=== PATIENT | male | born 1950 | race Caucasian/White ===

== ENCOUNTER 2017-01-26 09:56 | Emergency (ER) | payer MEDICARE, OTHER ==
[2017-01-26] MEDS ORDERED: HYDROcodone/Acetaminophen 10/325 mg Tablet ONE (11:38)
--- NOTE | 2017-01-26 13:06 | CT ---
CT OF CERVICAL SPINE PERFORMED WITHOUT CONTRAST ENHANCEMENT: HISTORY: Neck pain status post fall. History of neck surgery. FINDINGS: The patient has undergone anterior cervical fusion. There is a plate and screws at the C3-4 level w ith marked disk narrowing at this level. There is a separate plate and screws at the C5-6 level. T here is mild disk narrowing at C4-5. There are degenerative facet changes, the facets do appear to be in normal alignment. There is minimal anterolysis of C7 on T1. There is a moderately severe can al stenosis at C3-4. There is bilateral foraminal narrowing which is worse on the left with asymmet vernon left uncovertebral hypertrophic changes. There is also mild left foraminal narrowing at the C4- 5 level and C5-6. The canal is mildly stenotic at the C5-6 and C6-7 levels. There is no CT evidenc e of fracture. IMPRESSION: No CT evidence of fracture. Arthritic changes and postoperative changes of the spine are noted. POS: [facility]
== END 2017-01-26 12:10 | disposition home or self-care (01) ==
LOC: ERS 09:56
DX: S16.1XXA Strain of muscle, fascia and tendon at neck level, initial encounter (principal); M48.02 Spinal stenosis, cervical region; J44.9 Chronic obstructive pulmonary disease, unspecified; E78.5 Hyperlipidemia, unspecified; F41.9 Anxiety disorder, unspecified; F32.9 Major depressive disorder, single episode, unspecified; Z87.891 Personal history of nicotine dependence; V00.121A Fall from non-in-line roller-skates, initial encounter
CPT/HCPCS: 72125

== ENCOUNTER 2017-02-21 06:37 | Day surgery (SDC) | payer MEDICARE, OTHER ==
[2017-02-20 12:13] VITALS: BMI 26.9
[2017-02-21 07:35] VITALS: BP 139/72; TEMP 97.3
[2017-02-21] MEDS ORDERED: Lorazepam 1 MG TAB ONE (07:42)
[2017-02-21] MEDS ORDERED: FLU VACC TS2017-18 (>65YR) 0.5 ML SYRINGE IM ONE (09:00)
--- NOTE | 2017-02-21 13:40 | CT ---
CT LUMBAR SPINE WITH CONTRAST (CT LUMBAR MYELOGRAM): DATE: 02-21-17 HISTORY: 66-year-old male with chronic low back pain and lumbar radiculopathy. FINDINGS: The current images of the previously demonstrated approximately 3.7 cm left renal upper pole cyst is degraded on the current study due to breathing motion. The more posterolaterally located left renal upper pole cystic lesion is mostly excluded from the field of view on the current CT. There are fiv e lumbar type vertebrae. The vertebral body heights are maintained. T12-L1: Minimal disc bulge. Otherwise essentially normal. L1-2: Normal. The conus medullaris terminates at this level. L2-3: Disc space maintained. Mild diffuse disc bulge. Minimal degenerative retrolisthesis of L2 on L 3. Moderate decrease in the anteroposterior dimension of the thecal sac, while the transverse dimens ion is preserved. No high grade degenerative facet changes. Mild to moderate bilateral neural forami nal stenosis. Disc space maintained. L3-4: Minimal disc space narrowing. Prominent diffuse disc bulge. New finding of a thin right parace ntral focal disc extrusion with superior migration of the extruded disc material to the foraminal le josue of L3. This only minimally worsens the pre-existing moderate degree of central spinal canal sten osis caused by the combination of the diffuse disc bulge and the bilateral degenerative facet hypert rophy. Moderate to severe bilateral neural foraminal stenosis. L4-5: Mild disc space narrowing. Severe bilateral degenerative facet disease, right worse than left, causes a very mild grade I anterolisthesis of L4 on L5. The bilateral facet hypertrophy is severe, resulting in significant decrease in the transverse dimension of the thecal sac. The anteroposterior dimension of the thecal sac is not narrowed because of an old midline laminectomy defect. Overall d egree of central spinal canal stenosis is moderate to severe. During the interval since 04-20-15 ere has been interval bony overgrowth of an approximately 1.5 cm anteroposterior x 0.4 cm transverse x 1.5 cm craniocaudal osteophytic process projecting posteriorly and medially from the right inferi or articular facet of L4, which extends to the midline. There is moderate to severe bilateral neural foraminal stenosis, similar to the previous study. There is no spondylolysis. L5-S1: Disc space is preserved. Mild diffuse disc bulge. Moderate to severe bilateral neural foramin al stenosis. Bilateral severe degenerative facet disease. The facet hypertrophy results in decrease in the transverse dimension of the spinal canal and thecal sac. There is a conjoined nerve root resu lting in asymmetry of the thecal sac. Overall a moderate degree of central spinal canal stenosis. No significant interval change overall. IMPRESSION: 1. Lumbar spondylosis, including severe facet osteoarthrosis at L4-5 and L5-S1, and moderate facet o steoarthrosis at L3-4. 2. Incidental finding of interval posterior growth of an unusually long osteophyte from the right L4 inferior articular facet into the posterior perivertebral space. 3. Moderate to severe central spinal canal stenosis at L4-5, and moderate central spinal canal steno sis at L3-4 and L5-S1, remain. 4. High grade bilateral neural foraminal stenosis at L3-4, L4-5, and L5-S1 remain. 5. Prior midline laminectomy at L3-4 is again noted. 6. In addition to diffuse disc bulge at L3-4, there is a new finding of a small, thin right paracent ral disc extrusion with superior migration. POS: [facility]
[2017-02-21] MEDS ORDERED: Iopamidol-M 300 61% 15 ML VIAL ONE (15:30)
--- NOTE | 2017-02-21 15:42 | RAD ---
MYELOGRAM CERVICAL MYELOGRAM LUMBAR: Date: 02-21-17 History: 66-year-old male with lumbar radiculopathy, low back pain, cervical radiculopathy, and cervicalgia. Technique: Signed informed consent obtained. [employer] radiographs of the cervical spine and lumbar spine obtained. Patient was placed in prone DIVEHI position on fluoroscopy table. Skin of lower back was prepped and d raped in usual sterile fashion. 25 gauge needle used to apply buffered Lidocaine superficially and d eeply. 22 gauge spinal needle advanced into the spinal canal and thecal sac at the L1-2 level (after confirming on previous CT lumbar myelogram of 04-20-15 that the conus medullaris tip was at that le josue). Upon brisk return of clear CSF, a total of 10 ml of Isovue M300 was injected intrathecally und er brief, intermittent fluoroscopy. Needle was removed. The table was tilted in prone Trendelenburg position, to allow the intrathecal contrast material to flow into the cervical spine. The patient wa s then taken to CT. Patient tolerated the procedure well. No complications. FINDINGS: Aneurysm clip in right posterior fossa. ACDF hardware at C3-4 and C5-6. Degenerative retrolisthesis of C3 on C4, which encroaches upon the spinal canal. Severe DJD of bilateral facet joints at L3-4 (causing grade I anterolisthesis of L3 on L4) and L5-S1 . Midline laminectomy defect at L3-4. No severe disc space narrowing at any lumbar level. Post injection images demonstrate contrast material in the spinal canal, demonstrating central spina l canal stenosis at L3-4, and especially L4-5. Single AP view of the cervical spine demonstrates con trast material within the cervical spinal canal. IMPRESSION: 1. Technically successful lumbar and cervical myelogram. 2. Cervical spondylosis with high grade facet osteoarthrosis, asymmetrically worse on the left than the right. 3. Status post anterior cervical discectomy and fusion at C3-4 and C5-6. 4. Lumbar spondylosis consisting of severe bilateral facet osteoarthrosis at L4-5 and L5-S1. 5. Grade I spondylolisthesis at L4-5 due to the facet osteoarthrosis. 6. Status post laminectomy at L4-5. 7. Central spinal canal stenosis at L3-4 and L4-5. 8. See separate report of the CT myelogram for additional details that are not demonstrated on the bobby mejia radiographic images. POS: [facility]
--- NOTE | 2017-02-21 15:55 | CT ---
CT CERVICAL SPINE WITH CONTRAST: (CT CERVICAL MYELOGRAM) 02/21/2017 HISTORY: A 66-year-old male with cervical radiculopathy, recently exacerbated by trauma (refrigerator fell on patient). COMPARISON: CT cervical myelogram from 04/20/2015. FINDINGS: There is an intracranial aneurysm clip in the right anterior lower aspect of the posterior fossa, ad jacent to the right side of the medulla. Again demonstrated is the medialization of the right vocal cord. The right common carotid artery and internal carotid artery are also medialized, taking a re tropharyngeal course, and anteriorly displacing the right posterior pharyngeal wall. The vertebral body heights are maintained. The cervical spinal canal is diffusely small in caliber, in particular in the anteroposterior dimension, due to developmentally short pedicles. This is exac erbated by cervical spondylosis, as described below. C1-C2: No high grade central spinal canal stenosis. Minimal-mild facet osteoarthrosis at the bilat eral atlantoaxial joints. Atlanto-occipital joints are essentially normal. Degenerative changes at the atlanto-odontoid junction. C2-C3: Disk space maintained. Mild central spinal canal stenosis, almost entirely on a development al basis. No right-sided neural foraminal stenosis. Mild left neural foraminal stenosis. Bilatera l small uncinate process osteophytes. Mild right facet DJD. Moderate left facet DJD, slightly wors e than in 2014. C3-C4: Anterior metallic plate and screws. Tiny metallic markers for interbody fusion cage. Moder ate to severe disk space narrowing. No signs of osseous bridging between the endplates (no ankylosi s). Prominent, broad-based disk-osteophytic bar complex encroaches upon the anterior aspect of the spinal canal, asymmetrically worse at the left lateral aspect of the spinal canal compared to the ri ght, exacerbating the developmentally small caliber spinal canal, resulting in moderate central spin al canal stenosis. No cord impingement. Large bilateral uncinate process osteophytes, left worse t lord right, result in severe bilateral neural foraminal stenosis, left worse than right. Mild DJD of the right facet joint. The left facet joint is almost normal. No significant interval change. C4-C5: Mild disk space narrowing. Vacuum disk phenomenon is new since the previous study. Shallow , broad-based disk-osteophyte complex, encroaching upon the anterior aspect of the spinal canal. Th ere is a chronic small calcified central disk protrusion, which almost contacts the ventral surface of the spinal cord. There is mild ligamentum flavum thickening, which abuts the dorsal surface of t he spinal cord. Overall, moderate to severe central spinal canal stenosis. There is also effacemen t of the left lateral aspect of the thecal sac by a small, approximately 0.4 x 0.4 cm soft tissue de nsity, which was present previously. This may represent a small disk extrusion fragment. Bilateral moderate sized uncinate process osteophytes. Moderate right facet degenerative hypertrophy. Moder ate to severe left degenerative facet hypertrophy. Moderate to severe right neural foraminal stenos is. Severe left neural foraminal stenosis. C5-C6: Anterior metallic plate and screws. Interbody bone graft has successfully fused with the a djacent endplates, as was the case previously. Moderate central spinal canal stenosis, almost entire ly on a developmental basis. Mild, bilateral facet DJD, left worse than right. Bilateral neural for aminal stenosis, moderate on the right and moderate to severe on the left. C6-C7: Severe disk space narrowing. Slight degenerative retrolisthesis of C6 on C7. Broad-based d isk osteophytic bar complex encroaches upon the anterior aspect of the spinal canal, exacerbating th e developmentally small caliber spinal canal, causing moderate to severe central spinal canal stenos is. Large bilateral uncinate process osteophytes. Moderate to severe bilateral facet DJD. Severe bilateral neural foraminal stenosis. No major interval change. C7-T1: Severe bilateral facet DJD causes a chronic grade 1 anterolisthesis of C7 on T1. These fact ors also result in severe bilateral neural foraminal stenosis and moderate to severe central spinal canal stenosis. No major interval change. IMPRESSION: 1. Cervical spondylosis with multilevel high grade degenerative disk disease and high grade facet o steoarthrosis. 2. Status post anterior cervical diskectomy and fusion at C3-C4 (without ankylosis) and C5-C6 (with successful ankylosis). 3. Developmentally small caliber spinal canal is exacerbated by the cervical spondylosis, with mult i-level high-grade central spinal canal stenosis and multi-level high-grade bilateral neural foramin al stenosis, including severe. 4. Filling defect at the left lateral aspect of the spinal canal at C4-C5 may represent extruded di sk herniation, chronic. 5. 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 6. Chronic right vocal cord paralysis. POS: KATHRYN
== END 2017-02-21 10:20 | disposition home or self-care (01) ==
LOC: RAD 06:37
PROVIDERS: ATTEND Neurological Surgery
PROC: B00B1ZZ Plain Radiography of Spinal Cord using Low Osmolar Contrast (ICD-10-PCS; principal; 2017-02-21)
DX: M47.26 Other spondylosis with radiculopathy, lumbar region (principal); M47.22 Other spondylosis with radiculopathy, cervical region; J44.9 Chronic obstructive pulmonary disease, unspecified; N40.0 Benign prostatic hyperplasia without lower urinary tract symptoms; I49.9 Cardiac arrhythmia, unspecified; F32.9 Major depressive disorder, single episode, unspecified; F41.9 Anxiety disorder, unspecified; M19.90 Unspecified osteoarthritis, unspecified site; Z79.82 Long term (current) use of aspirin; Z79.899 Other long term (current) drug therapy; Z90.49 Acquired absence of other specified parts of digestive tract; Z88.1 Allergy status to other antibiotic agents; Z88.8 Allergy status to other drugs, medicaments and biological substances; Z88.2 Allergy status to sulfonamides; Z98.1 Arthrodesis status; Z98.890 Other specified postprocedural states; Z87.891 Personal history of nicotine dependence
CPT/HCPCS: 62305; 72126; 72132

== ENCOUNTER → 2017-04-26 | Day surgery (SDC) | payer MEDICARE, OTHER ==
--- NOTE | 2017-04-26 13:50 | SPC ---
LEFT UPPER EXTREMITY PICC EXCHANGE FLUORO GUIDED: History: Malfunction of left upper extremity PICC. FINDINGS: After explaining the procedure and answering all questions, the external portion of the left upper ex tremity PICC were prepped in the usual sterile fashion. Guide wire was placed to hold position. A new 5 Pakistani single lumen PICC was placed so that the tip lies at the level of the superior vena cava. T he catheter was flushed and secured externally. Patient tolerated the procedure well and was dismisse d in good condition. Fluoro time: 0 seconds. IMPRESSION: Left upper extremity PICC is ready for use. POS: [facility]
== END ==
LOC: SPEC 10:31
PROVIDERS: ATTEND Family Medicine
PROC: 0J2VXYZ Change Other Device in Upper Extremity Subcutaneous Tissue and Fascia, External Approach (ICD-10-PCS; principal; 2017-04-26)
DX: T82.598A Other mechanical complication of other cardiac and vascular devices and implants, initial encounter (principal); J44.9 Chronic obstructive pulmonary disease, unspecified; E78.5 Hyperlipidemia, unspecified; N40.0 Benign prostatic hyperplasia without lower urinary tract symptoms; M19.90 Unspecified osteoarthritis, unspecified site; F41.9 Anxiety disorder, unspecified; F32.9 Major depressive disorder, single episode, unspecified; Z79.82 Long term (current) use of aspirin; Z79.899 Other long term (current) drug therapy; Z88.1 Allergy status to other antibiotic agents; Z88.2 Allergy status to sulfonamides; Z88.8 Allergy status to other drugs, medicaments and biological substances; Z98.1 Arthrodesis status; Z90.49 Acquired absence of other specified parts of digestive tract; Z98.890 Other specified postprocedural states; Z87.891 Personal history of nicotine dependence
CPT/HCPCS: 36569; C1751

== ENCOUNTER 2018-03-15 11:46 | Emergency (ER) | payer MEDICARE, OTHER ==
[2018-03-15] MEDS ORDERED: Acetaminophen 500 MG TAB ONE (12:08)
--- NOTE | 2018-03-15 12:54 | CT ---
CT HEAD NONCONTRAST: INDICATIONS: Posttraumatic head injury. Pain. FINDINGS: There is prominence of the ventricular system with multifocal white matter hypoattenuation of the per iventricular region, similar appearing to a 08/14/2017 exam. There is no acute mass producing intrac ranial hemorrhage visualized. There is a stable round hyperdensity within the sella, incompletely ev aluated, although stable dating back to 05/20/2015. IMPRESSION: 1. No acute intracranial hemorrhage or mass effect. 2. Moderate chronic ischemic disease and ventriculomegaly redemonstrated. 3. Round hyperdensity of the sella, incompletely evaluated. Followup with pre and post contrast MRI would prove useful for further characterization. POS: [place]
--- NOTE | 2018-03-15 13:12 | CT ---
CERVICAL SPINE CT NONCONTRAST: INDICATION: Injury, pain. FINDINGS: There is redemonstration of multilevel anterior fusion of the cervical spine involving C3-4 and C5-6 levels as was depicted on 01/26/2017 exam. Hardware alignment is grossly stable. Multilevel degenera tive change redemonstrated. No interval acute fracture is seen.. There is grade I spondylolisthesis of C7 on T1, stable-appearing. IMPRESSION: Stable postoperative cervical spine with multilevel degenerative change. POS: C
--- NOTE | 2018-03-15 13:13 | RAD ---
CHEST 1 VIEW: INDICATION: History of fall and altered mental status. FINDINGS: There is mild cardiomegaly, but no pulmonary vascular congestion. No pleural effusion is evident. N o pneumothorax is demonstrated. There is stable postsurgical change of the left shoulder when compar ed to the prior dated 07/23/2016. No acute osseous abnormality is evident. ACDF plate is seen involv ing the lower cervical spine. IMPRESSION: No definite acute abnormality. POS: [facility]
[2018-03-15 13:22] LABS: Bilirubin Negative (Negative); Blood, Urine Negative (Negative); Clarity CLEAR (Clear); Glucose, Urine (Dipstick) Negative (Negative); Leukocyte Moderate (Negative); Nitrite Positive (Negative); Protein, Urine (Dipstick) Negative (Neg-Trace); Specific Gravity, Urine 1.005 (1.002-1.036); Urobilinogen 0.2 mg/dL (0.2-1.0); pH, Urine 6.5 (5.0-9.0)
[2018-03-15 13:24] LABS: Bacteria/HPF 4+ HPF (None Seen); Hyaline Casts/LPF 0-3 HYALINE CAST LPF (0-3 Hyaline); RBC/HPF 0-3 HPF (0-3); Squamous Epithelial None Seen HPF (0-3)
[2018-03-15 13:43] LABS: #Eosinphils 0.2 thou/uL (0.0-0.7); #Lymphocytes 2.5 thou/uL (1.20-3.40); #Monocytes 0.7 thou/uL (0.11-0.59); %Basophils 0.8 % (0.0-1.0); %Eosinophils 3.4 % (0.0-10.0); %Lymphocytes 46.3 % (21.0-51.0); %Monocytes 12.5 % (0.0-10.0); %Neutrophils 36.9 % (42.0-75.0); Hemoglobin 11.9 g/dL (14.0-18.0); Mean Corpuscular HGB CONC 32.4 g/dL (32.0-36.0); Mean Corpuscular Volume 89.4 fL (78.0-98.0); Mean Platelet Volume 6.3 fL (7.4-10.4); Platelet Count 201 thou/uL (130-400); RBC Distribution Width 12.3 % (11.5-14.5); Red Blood Cell (RBC) Count 4.11 mill/uL (4.70-6.10); White Blood Cell (WBC) Count 5.3 thou/uL (4.8-10.8)
[2018-03-15 14:02] LABS: ALT (SGPT) 20 U/L (8-55); AST (SGOT) 19 U/L (5-34); Albumin 3.9 g/dL (3.4-4.8); Alkaline Phosphatase 71 U/L (40-150); Anion Gap 10 mmol/L (10-20); BUN (Urea Nitrogen) 9 mg/dL (8.4-25.7); Bilirubin, Total 1.4 mg/dL (0.2-1.2); Calc. Creatinine Clearance 0 mL/min (70-130); Calcium 9.2 mg/dL (7.8-10.44); Carbon Dioxide 27 mmol/L (23-31); Chloride 106 mmol/L (98-107); Estimated GFR-MDRD 65; Globulin 2.8 g/dL (2.4-3.5); Glucose 93 mg/dL (80-115); Potassium 4.3 mmol/L (3.5-5.1); Protein, Total 6.7 g/dL (5.8-8.1); Sodium 139 mmol/L (136-145)
[2018-03-15] MEDS ORDERED: HYDROcodone/Acetaminophen 5/325 mg Tablet ONE (15:18)
== END 2018-03-15 15:20 | disposition home or self-care (01) ==
LOC: ERS 11:46
DX: S06.0X0A Concussion without loss of consciousness, initial encounter (principal); J44.9 Chronic obstructive pulmonary disease, unspecified; E78.5 Hyperlipidemia, unspecified; F41.9 Anxiety disorder, unspecified; Z79.899 Other long term (current) drug therapy; Z87.891 Personal history of nicotine dependence; W06.XXXA Fall from bed, initial encounter
CPT/HCPCS: 36415; 51701; 70450; 71045; 72125; 80053; 81003; 81015; 83735; 84443; 85025; 93005

== ENCOUNTER 2018-09-07 17:28 | Emergency (ER) | payer MEDICARE, OTHER ==
[2018-09-07] MEDS ORDERED: Ondansetron PF 4 MG/2 ML Vial ONE (18:46)
== END 2018-09-07 20:13 | disposition home or self-care (01) ==
LOC: ERS 17:28
DX: T17.228A Food in pharynx causing other injury, initial encounter (principal); I10 Essential (primary) hypertension; J44.9 Chronic obstructive pulmonary disease, unspecified; E78.5 Hyperlipidemia, unspecified; F41.9 Anxiety disorder, unspecified; Z87.891 Personal history of nicotine dependence
CPT/HCPCS: 96374; 96375; J1610; J2405

== ENCOUNTER 2020-04-16 09:16 | Outpatient (CLI) | payer MEDICARE ==
[2020-04-16 21:38] LABS: SARS-CoV-2 MS2 Positive; SARS-CoV-2 N Gene Negative; SARS-CoV-2 S Gene Negative; SARS-CoV-2 by NAA Not Detected (NotDetected); SARS-CoV-2 orf1ab Negative
== END 2020-04-16 09:17 | disposition home or self-care (01) ==
LOC: LABBT 09:16
PROVIDERS: ATTEND Neurological Surgery
DX: Z20.828 Contact with and (suspected) exposure to other viral communicable diseases (principal)
CPT/HCPCS: 87635; U0003

== ENCOUNTER 2020-04-19 06:03 | Day surgery (SDC) | payer MEDICARE ==
[2020-04-16 13:02] VITALS: BMI 29.7
[2020-04-19] MEDS ORDERED: Midazolam HCl 2 mg/2 ml Vial ONE (07:50)
[2020-04-19] MEDS ORDERED: Fentanyl 100 MCG/2 ML VIAL ONE (07:50)
--- NOTE | 2020-04-19 08:22 | RAD ---
3 views of the cervical spine: 04/19/2020 HISTORY: Preoperative patient FINDINGS: The neutral lateral exam demonstrates anterior discectomy and fusion hardware at the C3-4 level and a t the C4-5 level. There is retrolisthesis on the neutral imaging measuring 5 mm at the C3-4 level. There is anterolisth esis at the C4-5 level measuring 2 mm on the neutral imaging. Flexion imaging demonstrates anterolisthesis at C2-3 measuring 3 mm, retrolisthesis at C3-4 measuring 3 mm, and anterolisthesis at C4-5 measuring 4 mm. Extension imaging demonstrates retrolisthesis at C2-3 measuring 4 mm, retrolisthesis at C3-4 measurin g 3 mm, and normal alignment at C4-5. C6-7 and C7-T1 levels are not well visualized on this exam. An aneurysm clip is noted at the level of the skull base. Evidence of prior occipital craniotomy noted. IMPRESSION: Postoperative and degenerative change as detailed above.
--- NOTE | 2020-04-19 08:34 | RAD ---
XR Lumbar Spine Bending Min 4V History: Preop evaluation Comparison: None. Findings: Grade 1 L4-5 anterolisthesis approximately 7 mm. Prior L4 and L5 laminectomy change. Severe facet arthrosis at L3/L4, L4/L5 and L5/S1. No significant translation with flexion or extension. 2 mm L3-4 retrolisthesis which is also fixed. High-grade aortic calcifications. No acute compression fracture. Impression: Moderate degenerative changes lower lumbar spine with fixed listhesis.
--- NOTE | 2020-04-19 09:17 | RAD ---
XR Myelogram 2 or More Regions History: Myelopathy Comparison: Myelogram 2009 Findings: Patient was brought to the fluoroscopy suite. The exam was performed under anesthesia. Patient's back was prepped and draped in normal sterile fashion. After adequate local anesthesia the L3/L4 interspace was accessed with a 22-gauge spinal needle. Clear CSF was visualized. 11 mL of contrast was instilled into the thecal sac. Patient was moving throughout the examination. Impression: Technically successful fluoroscopic guided cervical, thoracic, and lumbar myelogram.
--- NOTE | 2020-04-19 09:40 | CT ---
CT Lumbar Spine W Con History: Lumbar radiculopathy Comparison: None Findings: Cyst superior pole left kidney measuring up to 4 cm. Dense aortic calcifications. No retroperitoneal periaortic adenopathy. No acute cervical spine fracture or malalignment.. Levels are as follows: L1/L2: Small circumferential disc bulge. Mild facet arthrosis. No significant neural foraminal or spi nal canal narrowing. L2/L3: Mild hypertrophic facet arthrosis. Small circumferential disc osteophyte complex greatest with in the left lateral recess and subforaminal zone. Moderate to severe left neural foraminal narrowing. Spinal canal measures approximately 8 mm. Mild right neural foraminal narrowing. L3/L4: Moderate posterior disc space narrowing. 1 to 2 mm retrolisthesis. Large disc osteophyte compl ex. Moderate to severe bilateral neural foraminal narrowing. Mild ligamentum flavum hypertrophy. Spinal canal measures approximately 12 mm. Prior laminectomy change. L4/L5: 1-2 mm anterolisthesis. Severe facet arthropathy. Moderate disc osteophyte complex. Moderate b ilateral neural foraminal narrowing. No spinal canal narrowing. L5/S1: Mild posterior degenerative disc space height loss. Small circumferential disc bulge. Moderate facet arthropathy. Moderate bilateral neural foraminal narrowing. Impression: Multilevel high-grade neural foraminal narrowing as described.
--- NOTE | 2020-04-19 10:01 | CT ---
CT Cervical Spine W Con History: Radiculopathy Comparison: Neither the report for images are available for review from the prior exam Findings: Moderate vascular calcifications. Paraspinal soft tissues are normal. No acute fracture or malalignment. Vascular clip along the right brain stem. Levels are as follows: C2/C3: Minimal disc space height loss. Moderate uncinate process hypertrophy. Moderate left and mild right neural foraminal narrowing. Moderate left and mild right hypertrophic facet arthrosis. C3/C4: Prior discectomy change. Large posterior osteophytes cause a severe left and moderate to sever e right neural foraminal narrowing. There is ventral CSF space effacement with the spinal canal measuring 6 mm. Moderate left and mild right hypertrophic facet arthrosis. C4-5: High-grade posterior disc space height loss. Large peripherally calcified disc centrally. Spina l canal is narrowed to 5-6 mm. Moderate right uncinate process hypertrophy. High-grade left lateral recess and subforaminal zone disc osteophyte complex. Severe hypertrophic facet arthrosis on the left . Severe left neural foraminal narrowing. Moderate right neural foraminal narrowing. 2 mm anterolisthesis. C5/C6: Prior discectomy change. Moderate posterior osteophyte causes minimal ventral CSF space efface ment. No high-grade neural foraminal narrowing. Spinal canal measures approximately 1 cm. The osteophyte extends into the left lateral recess and subforaminal zone along with moderate hypertr ophic facet arthrosis causing moderate-severe left neural foraminal narrowing moderate right neural foraminal narrowing. C6/C7: Severe degenerative disc space height loss. 2 mm retrolisthesis. Large disc osteophyte complex causes severe left and moderate to severe right neural foraminal narrowing. Minimal ventral CSF space effacement with the spinal canal measuring approximately 8 mm. C7/T1: 2 mm anterolisthesis due to high-grade facet arthrosis. Spinal canal measures approximately 7 mm. Moderate bilateral neural foraminal narrowing. High-grade facet arthrosis. Impression: Moderate-severe spondylosis throughout the cervical spine with multilevel high-grade neur al foraminal narrowing.
[2020-04-19] MEDS ORDERED: PROPOFOL 200 MG/20 ML VIAL ONE (10:08)
--- NOTE | 2020-04-19 10:14 | CT ---
CT Thoracic Spine W Con History: Spondylosis Comparison: Images and report are not available from the prior exam due to system failure. Findings: Mild scarring lung bases. Moderate vascular calcifications of the aorta. Cysts of the left kidney. No acute fracture or malalignment. Throughout the thoracic spine is no high-grade neural foraminal or spinal canal narrowing. Levels are as follows: T1/T2: Small central disc osteophyte complex. No neural foraminal or spinal canal narrowing. T2/T3: Minimal disc space height loss. No neural foraminal or spinal canal narrowing. Minimal superio r endplate compression deformity at T3 is chronic. T3/T4: Left lateral recess disc osteophyte complex. Mild left neural foraminal narrowing. Minimal kwabena tral CSF space effacement with the spinal canal still measuring 12 mm. T4/T5: No disc bulge. No neural foraminal or spinal canal narrowing. T5/T6: No disc bulge. No neural foraminal or spinal canal narrowing. T6/T7: Small central disc herniation with mild ventral CSF space effacement. Spinal canal measures ap proximately 11 mm. No neural foraminal narrowing. T7/T8: No disc herniation. No neural foraminal or spinal canal narrowing. T8/T9: Small central disc herniation. Minimal ventral CSF space effacement with the spinal canal wali uring 9 mm. No neural foraminal narrowing. T9/T10: No disc herniation. No neural foraminal or spinal canal narrowing. T10/T11: No disc herniation. No neural foraminal or spinal canal narrowing. T11/T12: No disc herniation. Very small circumferential disc osteophyte complex. No neural foraminal or spinal canal narrowing. T12/L1 is not interrogated on this exam. Impression: Mild spondylosis with small disc herniations and disc bulges without high-grade neural fo raminal or spinal canal narrowing.
[2020-04-19] MEDS ORDERED: Iopamidol-M 300 61% 15 ML VIAL ONE (10:51)
== END 2020-04-19 10:41 | disposition home or self-care (01) ==
LOC: SDC/OP 06:03 → EDSTATUS 08:00 → SDC/OP 10:41
PROVIDERS: ATTEND Neurological Surgery
PROC: B02B1ZZ Computerized Tomography (CT Scan) of Spinal Cord using Low Osmolar Contrast (ICD-10-PCS; principal; 2020-04-19)
DX: M47.22 Other spondylosis with radiculopathy, cervical region (principal); M48.02 Spinal stenosis, cervical region; M47.24 Other spondylosis with radiculopathy, thoracic region; M51.14 Intervertebral disc disorders with radiculopathy, thoracic region; M48.061 Spinal stenosis, lumbar region without neurogenic claudication; G95.9 Disease of spinal cord, unspecified; J44.9 Chronic obstructive pulmonary disease, unspecified; G47.30 Sleep apnea, unspecified; Z86.14 Personal history of Methicillin resistant Staphylococcus aureus infection; Z79.82 Long term (current) use of aspirin; Z79.899 Other long term (current) drug therapy; Z88.1 Allergy status to other antibiotic agents; Z88.2 Allergy status to sulfonamides; Z88.8 Allergy status to other drugs, medicaments and biological substances
CPT/HCPCS: 62305; 72050; 72120; 72126; 72129; 72132; 82565; 87635; J2250; J2704; J3010; Q9967; U0003

== ENCOUNTER 2020-07-28 15:57 | Emergency (ER) | payer MEDICARE, OTHER ==
[2020-07-28] MEDS ORDERED: Milk Of Magnesia 30 ML UDCUP ONE (17:45)
[2020-07-28] MEDS ORDERED: MINERAL OIL 30 ML UDCUP PO SCH (17:45)
[2020-07-28] MEDS ORDERED: Milk Of Magnesia 30 ML UDCUP PO SCH (17:45)
== END 2020-07-28 20:07 | disposition home or self-care (01) ==
LOC: ERS 15:57
DX: K59.00 Constipation, unspecified (principal); E78.5 Hyperlipidemia, unspecified; E78.00 Pure hypercholesterolemia, unspecified; Z79.82 Long term (current) use of aspirin; Z79.899 Other long term (current) drug therapy
CPT/HCPCS: 99283

== ENCOUNTER 2022-05-25 22:29 | Observation (INO) | payer MEDICARE ==
[2022-05-25] MEDS ORDERED: Magnesium 2 GM/50 ML BAG (IN WATER) ONE (23:26)
[2022-05-25] MEDS ORDERED: methylPREDNISolone Sod Succ/PF 125 MG/2 ML VIAL ONE (23:26)
[2022-05-25] MEDS ORDERED: Ipratropium/Albuterol 3 ML NEB ONE (23:32)
[2022-05-25 23:34] LABS: Albumin 4.3 g/dL (3.4-4.8); Chloride 106 mmol/L (98-107); Potassium 4.2 mmol/L (3.5-5.1); Sodium 142 mmol/L (136-145)
[2022-05-25 23:35] LABS: Calcium 9.4 mg/dL (7.8-10.44); Glucose 131 mg/dL (83-110)
[2022-05-25 23:36] LABS: Actual Bicarbonate (HCO3a) 24.2 mEq/L (22-28); Analyzer IN Cardio ER; Base Excess (BEa) -3.5 mEq/L (-2.0 to +3.0); CO2 Tension 55.4 mmHg (35.0-45.0); Calcium, Ionized (arterial) 1.22 mmol/L (1.12-1.30); Carboxyhemoglobin (COHb) 0.1 gm% (0.0-3.0); Hemoglobin (Hb) 12.8 g/dL (14.0-18.0); O2 Tension (PaO2), arterial 68.9 mmHg (> 70.0); Potassium - ABG Lab 3.68 mmol/L (3.70-5.30); pH, Arterial 7.26 (7.35-7.45)
[2022-05-25 23:37] LABS: Anion Gap 16 mmol/L (10-20); Carbon Dioxide 24 mmol/L (23-31); Globulin 3.1 g/dL (2.4-3.5); Protein, Total 7.4 g/dL (5.8-8.1)
[2022-05-25 23:38] LABS: Alkaline Phosphatase 111 U/L (40-110)
[2022-05-25 23:39] LABS: BUN (Urea Nitrogen) 11 mg/dL (8.4-25.7); Calc. Creatinine Clearance 0 mL/min (70-130); Estimated GFR 62
[2022-05-25 23:40] LABS: AST (SGOT) 14 U/L (5-34)
[2022-05-25 23:41] LABS: ALT (SGPT) Less than 7 U/L (8-55)
[2022-05-25 23:47] LABS: Puncture Site LRA
[2022-05-26 00:02] LABS: #Basophils 0.1 thou/uL (0.0-0.2); #Eosinphils 0.2 thou/uL (0.0-0.7); #Lymphocytes 3.1 thou/uL (1.20-3.40); #Monocytes 0.7 thou/uL (0.11-0.59); %Basophils 0.7 % (0.0-1.0); %Lymphocytes 38.3 % (21.0-51.0); %Monocytes 8.4 % (0.0-10.0); %Neutrophils 49.7 % (42.0-75.0); Hemoglobin 11.8 g/dL (14.0-18.0); Mean Corpuscular HGB CONC 32.5 g/dL (32.0-36.0); Mean Corpuscular Hemoglobin 29.7 pg (27.0-31.0); Mean Corpuscular Volume 91.2 fl (78.0-98.0); Mean Platelet Volume 7.2 fL (7.4-10.4); Platelet Count 171 10x3/uL (130-400); RBC Distribution Width 12.3 % (11.5-14.5); Red Blood Cell (RBC) Count 3.99 mill/uL (4.70-6.10); White Blood Cell (WBC) Count 8.1 10x3/uL (4.8-10.8)
[2022-05-26] MEDS ORDERED: Ondansetron PF 4 MG/2 ML Vial ONE (00:11)
[2022-05-26] MEDS ORDERED: cefTRIAXone\\ROCEPHIN 2 GM VIAL ONE (00:11)
[2022-05-26] MEDS ORDERED: Azithromycin 500 MG VIAL ONE (02:01)
[2022-05-26 02:25] LABS: Bilirubin, Total 1.5 mg/dL (0.2-1.2)
[2022-05-26 04:41] VITALS: BMI 24.1
[2022-05-26 04:59] LABS: #Lymphocytes 0.5 thou/uL (1.20-3.40); #Monocytes 0.1 thou/uL (0.11-0.59); #Neutrophils 5.1 thou/uL (1.40-6.50); %Eosinophils 0.2 % (0.0-10.0); %Monocytes 2.3 % (0.0-10.0); %Neutrophils 89.5 % (42.0-75.0); Hemoglobin 12.1 g/dL (14.0-18.0); Mean Corpuscular HGB CONC 32.5 g/dL (32.0-36.0); Mean Corpuscular Hemoglobin 29.8 pg (27.0-31.0); Mean Corpuscular Volume 91.6 fl (78.0-98.0); Mean Platelet Volume 7.4 fL (7.4-10.4); Platelet Count 160 10x3/uL (130-400); RBC Distribution Width 12.3 % (11.5-14.5); Red Blood Cell (RBC) Count 4.07 mill/uL (4.70-6.10); White Blood Cell (WBC) Count 5.7 10x3/uL (4.8-10.8)
[2022-05-26 05:19] LABS: Anion Gap 16 mmol/L (10-20); BUN (Urea Nitrogen) 11 mg/dL (8.4-25.7); Calc. Creatinine Clearance 70 mL/min (70-130); Calcium 9.1 mg/dL (7.8-10.44); Carbon Dioxide 22 mmol/L (23-31); Chloride 106 mmol/L (98-107); Estimated GFR 72; Glucose 147 mg/dL (83-110); Potassium 3.6 mmol/L (3.5-5.1); Sodium 140 mmol/L (136-145)
[2022-05-26] MEDS: Ipratropium/Albuterol 3 ML NEB NEB SCH ×3 (07:47→18:18)
[2022-05-26] MEDS: DULoxetine 30 MG CAP PO SCH (08:53)
[2022-05-26] MEDS: Aspirin 81 mg Enteric Coated Tablet PO SCH (08:54)
[2022-05-26] MEDS: Losartan 25 MG TAB PO SCH (08:54)
[2022-05-26] MEDS ORDERED: Furosemide 20 MG TAB PO SCH (09:00)
[2022-05-26] MEDS ORDERED: cefTRIAXone\\ROCEPHIN 1 GM in Sodium Chloride 0.9% 100 ML IVPB SCH (12:00)
[2022-05-26] MEDS ORDERED: Azithromycin 500 MG in Sodium Chloride 0.9% 250 ML 250 ML IVPB SCH (13:00)
[2022-05-26] MEDS ORDERED: Simvastatin 10 MG TAB PO SCH (21:00)
[2022-05-26] MEDS: Cefepime 1 GM in Sodium Chloride 0.9% 100 ML IVPB SCH (23:50)
[2022-05-27] MEDS: Ipratropium/Albuterol 3 ML NEB NEB SCH ×4 (00:11→18:44)
[2022-05-27] MEDS ORDERED: VANCOMYCIN IVPB PRN (02:59)
[2022-05-27] MEDS ORDERED: VANCOMYCIN 1.75 GM/500 ML BAG 1.75 GM in Premix Bag 1 BAG IVPB SCH (03:15)
[2022-05-27 04:51] LABS: #Lymphocytes 1.5 thou/uL (1.20-3.40); #Neutrophils 7.5 thou/uL (1.40-6.50); %Basophils 0.1 % (0.0-1.0); %Eosinophils 0.1 % (0.0-10.0); %Lymphocytes 15.1 % (21.0-51.0); %Monocytes 10.2 % (0.0-10.0); %Neutrophils 74.5 % (42.0-75.0); Hemoglobin 10.8 g/dL (14.0-18.0); Mean Corpuscular HGB CONC 32.5 g/dL (32.0-36.0); Mean Corpuscular Hemoglobin 29.5 pg (27.0-31.0); Mean Corpuscular Volume 90.8 fl (78.0-98.0); Mean Platelet Volume 7.7 fL (7.4-10.4); Platelet Count 176 10x3/uL (130-400); RBC Distribution Width 12.5 % (11.5-14.5); Red Blood Cell (RBC) Count 3.65 mill/uL (4.70-6.10); White Blood Cell (WBC) Count 10.1 10x3/uL (4.8-10.8)
[2022-05-27 05:08] LABS: Anion Gap 13 mmol/L (10-20); BUN (Urea Nitrogen) 18 mg/dL (8.4-25.7); Calc. Creatinine Clearance 65 mL/min (70-130); Calcium 9.6 mg/dL (7.8-10.44); Carbon Dioxide 25 mmol/L (23-31); Chloride 102 mmol/L (98-107); Estimated GFR 64; Glucose 117 mg/dL (83-110); Phosphorus 3.9 mg/dL (2.3-4.7); Sodium 136 mmol/L (136-145)
[2022-05-27] MEDS: DULoxetine 30 MG CAP PO SCH (09:11)
[2022-05-27] MEDS: Aspirin 81 mg Enteric Coated Tablet PO SCH (09:12)
[2022-05-27] MEDS: Losartan 25 MG TAB PO SCH (09:12)
[2022-05-27] MEDS: Cefepime 1 GM in Sodium Chloride 0.9% 100 ML IVPB SCH (11:27)
[2022-05-27] MEDS ORDERED: Vancomycin 1 GM in Premix Bag 1 BAG IVPB SCH (15:00)
[2022-05-27 16:07] VITALS: BP 120/66; TEMP 98.8
== END 2022-05-27 18:48 | disposition home or self-care (01) ==
LOC: ERS 22:29 → 2NO 05-26 02:22
PROVIDERS: ADMIT Family Medicine; ATTEND Nurse Practitioner Family
DX: J44.1 Chronic obstructive pulmonary disease with (acute) exacerbation (principal); J96.21 Acute and chronic respiratory failure with hypoxia; E87.1 Hypo-osmolality and hyponatremia; N40.0 Benign prostatic hyperplasia without lower urinary tract symptoms; I10 Essential (primary) hypertension; E78.00 Pure hypercholesterolemia, unspecified; F03.90 Unspecified dementia, unspecified severity, without behavioral disturbance, psychotic disturbance, mood disturbance, and anxiety; Z87.891 Personal history of nicotine dependence; Z79.82 Long term (current) use of aspirin; Z79.899 Other long term (current) drug therapy; Z88.1 Allergy status to other antibiotic agents; Z88.2 Allergy status to sulfonamides; Z88.8 Allergy status to other drugs, medicaments and biological substances; Z20.822 Contact with and (suspected) exposure to COVID-19
CPT/HCPCS: 36600; 71045; 80048 ×2; 80053; 82805; 83735; 83880; 84100; 84145; 84484; 85025 ×3; 87040; 87077; 87149 ×2; 87186; 93005; 94640 ×3; 94660; 96372 ×2; 96374; 96375 ×2; 96376 ×2; 99285; G0378 ×3; J3370 ×2; U0003; U0005; 36415; J0456; J0692; J0696; J1650; J2405; J2930; J3475; J3490; J7050; J7620

== ENCOUNTER 2022-06-21 19:49 | Emergency (ER) | payer MEDICARE ==
[2022-06-21 20:41] LABS: Actual Bicarbonate (HCO3v) 27 mEq/L (22-28); Base Excess 0.1 mEq/L (-2.0 to +3.0); Calcium, Ionized (venous) 1.12 mmol/L (1.16-1.32); Chloride (VBG) 107 mmol/L (98-106); Hemoglobin (Hb) 11.9 g/dL (12.6-17.4); Potassium (VBG) 4.11 mmol/L (3.70-5.30); Sodium 142.7 mmol/L (133-146); pH (venous) 7.33 (7.32-7.43)
[2022-06-21 20:46] LABS: Hemoglobin 11.2 g/dL (14.0-18.0); Mean Corpuscular HGB CONC 33.5 g/dL (32.0-36.0); Mean Corpuscular Volume 92.5 fl (78.0-98.0); Mean Platelet Volume 7.5 fL (7.4-10.4); Platelet Count 152 10x3/uL (130-400); RBC Distribution Width 12.3 % (11.5-14.5); Red Blood Cell (RBC) Count 3.62 mill/uL (4.70-6.10); White Blood Cell (WBC) Count 4.6 10x3/uL (4.8-10.8)
[2022-06-21 21:04] LABS: Acetaminophen Less than 10.0 mcg/mL (10.0-30.0); Alcohol Less than 10 mg/dL (Less than 10); Salicylate Less than 8.0 mg/dL (15.0-30.0)
[2022-06-21 21:05] LABS: ALT (SGPT) 9 U/L (8-55); AST (SGOT) 19 U/L (5-34); Albumin 3.8 g/dL (3.4-4.8); Alcohol Less than 10 mg/dL (Less than 10); Alkaline Phosphatase 88 U/L (40-110); Anion Gap 13 mmol/L (10-20); BUN (Urea Nitrogen) 14 mg/dL (8.4-25.7); Calc. Creatinine Clearance 0 mL/min (70-130); Carbon Dioxide 25 mmol/L (23-31); Chloride 110 mmol/L (98-107); Estimated GFR 63; Globulin 2.8 g/dL (2.4-3.5); Glucose 72 mg/dL (83-110); Protein, Total 6.6 g/dL (5.8-8.1); Sodium 144 mmol/L (136-145)
[2022-06-21 21:06] LABS: Band 2 % (5-11); Eosinophils 5 % (0-10); Lymphocytes 54 % (21-51); MDiff Complete? YES; Monocytes 7 % (0-10); Neutrophil 32 % (42-75); Platelet Morphology Comment Appears Adequate; RBC Morphology Normal
[2022-06-22 01:19] LABS: Amphetamine Not Detected (NotDetected); Barbiturates Screen Not Detected (NotDetected); Benzodiazepine Screen Not Detected (NotDetected); Cocaine Metabolite Screen Not Detected (NotDetected); Methadone Not Detected (NotDetected); Methamphetamine Not Detected (NotDetected); Opiate Screen Not Detected (NotDetected); Oxycodone Screen Not Detected (NotDetected); Phencyclidine (PCP) Not Detected (NotDetected); THC/Cannabinoid Screen Not Detected (NotDetected); Tricyclic Screen Not Detected (NotDetected)
== END 2022-06-22 02:12 | disposition home or self-care (01) ==
LOC: ERS 19:49
DX: F03.90 Unspecified dementia, unspecified severity, without behavioral disturbance, psychotic disturbance, mood disturbance, and anxiety (principal); E23.7 Disorder of pituitary gland, unspecified; D72.819 Decreased white blood cell count, unspecified; E78.00 Pure hypercholesterolemia, unspecified; Z87.891 Personal history of nicotine dependence
CPT/HCPCS: 36415; 70450; 80053; 80306; 80307; 82805; 85025; 93005

== ENCOUNTER 2022-06-23 19:28 | Emergency (ER) | payer MEDICARE ==
[2022-06-23] MEDS ORDERED: Aspirin Chewable 81 MG TAB ONE (19:53)
[2022-06-23] MEDS ORDERED: Ipratropium/Albuterol 3 ML NEB ONE (19:53)
[2022-06-23 20:54] LABS: ALT (SGPT) 12 U/L (8-55); AST (SGOT) 22 U/L (5-34); Albumin 4.2 g/dL (3.4-4.8); Alkaline Phosphatase 78 U/L (40-110); Anion Gap 13 mmol/L (10-20); BUN (Urea Nitrogen) 10 mg/dL (8.4-25.7); Bilirubin, Total 1.6 mg/dL (0.2-1.2); Calc. Creatinine Clearance 0 mL/min (70-130); Calcium 9.2 mg/dL (7.8-10.44); Carbon Dioxide 26 mmol/L (23-31); Chloride 106 mmol/L (98-107); Estimated GFR 70; Glucose 97 mg/dL (83-110); Magnesium 1.8 mg/dL (1.6-2.6); Potassium 3.7 mmol/L (3.5-5.1); Protein, Total 7.2 g/dL (5.8-8.1); Sodium 141 mmol/L (136-145)
[2022-06-23 21:39] LABS: #Eosinphils 0.1 thou/uL (0.0-0.7); #Lymphocytes 1.5 thou/uL (1.20-3.40); #Monocytes 0.3 thou/uL (0.11-0.59); #Neutrophils 4.1 thou/uL (1.40-6.50); %Basophils 0.4 % (0.0-1.0); %Eosinophils 1.4 % (0.0-10.0); %Lymphocytes 25.1 % (21.0-51.0); %Monocytes 4.2 % (0.0-10.0); %Neutrophils 68.9 % (42.0-75.0); Hemoglobin 12.4 g/dL (14.0-18.0); Mean Corpuscular HGB CONC 32.2 g/dL (32.0-36.0); Mean Corpuscular Hemoglobin 29.5 pg (27.0-31.0); Mean Corpuscular Volume 91.7 fl (78.0-98.0); Mean Platelet Volume 7.7 fL (7.4-10.4); Platelet Count 150 10x3/uL (130-400); RBC Distribution Width 12.1 % (11.5-14.5); Red Blood Cell (RBC) Count 4.21 mill/uL (4.70-6.10)
== END 2022-06-23 21:37 | disposition home or self-care (01) ==
LOC: ERS 19:28
DX: J44.1 Chronic obstructive pulmonary disease with (acute) exacerbation (principal); E78.00 Pure hypercholesterolemia, unspecified; Z87.891 Personal history of nicotine dependence
CPT/HCPCS: 36415; 71045; 80053; 83735; 83880; 84484; 85025; 93005; J7620

== ENCOUNTER 2022-09-11 14:17 | Emergency (ER) | payer MEDICARE ==
[2022-09-11 17:51] LABS: #Basophils 0.1 thou/uL (0.0-0.2); #Eosinphils 0.3 thou/uL (0.0-0.7); #Monocytes 0.6 thou/uL (0.11-0.59); #Neutrophils 2.5 thou/uL (1.40-6.50); %Basophils 0.9 % (0.0-1.0); %Eosinophils 4.4 % (0.0-10.0); %Monocytes 10.5 % (0.0-10.0); Mean Corpuscular HGB CONC 31.5 g/dL (32.0-36.0); Mean Corpuscular Hemoglobin 28.7 pg (27.0-31.0); Mean Corpuscular Volume 91.1 fl (78.0-98.0); Mean Platelet Volume 9.2 fL (7.4-10.4); Platelet Count 194 10x3/uL (130-400); RBC Distribution Width 12.9 % (11.5-14.5); Red Blood Cell (RBC) Count 3.83 mill/uL (4.70-6.10); White Blood Cell (WBC) Count 5.7 10x3/uL (4.8-10.8)
[2022-09-11 18:18] LABS: ALT (SGPT) 7 U/L (8-55); AST (SGOT) 11 U/L (5-34); Albumin 3.7 g/dL (3.4-4.8); Alkaline Phosphatase 79 U/L (40-110); Anion Gap 12 mmol/L (10-20); BUN (Urea Nitrogen) 15 mg/dL (8.4-25.7); Bilirubin, Total 0.7 mg/dL (0.2-1.2); Calc. Creatinine Clearance 0 mL/min (70-130); Calcium 8.9 mg/dL (7.8-10.44); Carbon Dioxide 29 mmol/L (23-31); Chloride 103 mmol/L (98-107); Estimated GFR 64; Globulin 2.4 g/dL (2.4-3.5); Glucose 80 mg/dL (83-110); Potassium 4.2 mmol/L (3.5-5.1); Protein, Total 6.1 g/dL (5.8-8.1); Sodium 140 mmol/L (136-145)
[2022-09-11 22:24] LABS: CSF Source CSF; Clarity Clear (Clear); Tube # 4
[2022-09-11 22:25] LABS: Clarity Clear (Clear); Tube # 2
[2022-09-11 22:26] LABS: Bacteria/HPF 4+ HPF (None Seen); Bilirubin Negative (Negative); Blood, Urine Negative (Negative); Clarity Clear (Clear); Glucose, Urine (Dipstick) Normal (Negative); Ketone, Urine Negative (Negative); Leukocyte 25 Leu/uL (Negative); Nitrite 2+ (Negative); Protein, Urine (Dipstick) Negative (Neg-Trace); RBC/HPF None Seen HPF (0-3); Specific Gravity, Urine 1.011 (1.002-1.036); Squamous Epithelial 0-3 HPF (0-3); Urobilinogen Normal mg/dL (Less than 2)
[2022-09-11 22:29] LABS: Color Of CSF Supernatant COLORLESS (Colorless); Tube # 1; Unspun CSF Color COLORLESS (Colorless)
[2022-09-11 22:37] LABS: CSF, Glucose 62 mg/dl (40-70); CSF, Protein 53 mg/dL (15-40)
== END 2022-09-11 23:49 | disposition home or self-care (01) ==
LOC: ERS 14:17
DX: N39.0 Urinary tract infection, site not specified (principal); R29.6 Repeated falls; E78.5 Hyperlipidemia, unspecified; I10 Essential (primary) hypertension; J44.9 Chronic obstructive pulmonary disease, unspecified
CPT/HCPCS: 36415; 51701; 62270; 70450; 71045; 72100; 80053; 81003; 81015; 82945; 84157; 84484; 85025; 87070; 87077; 87086; 87186; 87205; 89051; 93005

== ENCOUNTER 2022-10-12 10:33 | Emergency (ER) | payer MEDICARE ==
[2022-10-12 11:20] LABS: #Eosinphils 0.1 thou/uL (0.0-0.7); #Monocytes 1.2 thou/uL (0.11-0.59); #Neutrophils 6.3 thou/uL (1.40-6.50); %Basophils 0.3 % (0.0-1.0); %Eosinophils 1.2 % (0.0-10.0); %Lymphocytes 15.1 % (21.0-51.0); %Monocytes 12.8 % (0.0-10.0); %Neutrophils 70.2 % (42.0-75.0); Hemoglobin 8.7 g/dL (14.0-18.0); Mean Corpuscular Hemoglobin 28.6 pg (27.0-31.0); Mean Corpuscular Volume 89.5 fl (78.0-98.0); Mean Platelet Volume 9.3 fL (7.4-10.4); Platelet Count 215 10x3/uL (130-400); RBC Distribution Width 13.2 % (11.5-14.5); Red Blood Cell (RBC) Count 3.04 mill/uL (4.70-6.10)
[2022-10-12 11:46] LABS: ALT (SGPT) 12 U/L (8-55); AST (SGOT) 21 U/L (5-34); Albumin 3.1 g/dL (3.4-4.8); Alkaline Phosphatase 66 U/L (40-110); Anion Gap 10 mmol/L (10-20); BUN (Urea Nitrogen) 21 mg/dL (8.4-25.7); Calc. Creatinine Clearance 0 mL/min (70-130); Calcium 8.7 mg/dL (7.8-10.44); Carbon Dioxide 27 mmol/L (23-31); Chloride 106 mmol/L (98-107); Estimated GFR 69; Glucose 102 mg/dL (83-110); Potassium 3.6 mmol/L (3.5-5.1); Protein, Total 6.1 g/dL (5.8-8.1); Sodium 139 mmol/L (136-145)
[2022-10-12 11:55] LABS: Bacteria/HPF 2+ HPF (None Seen); Bilirubin Negative (Negative); Blood, Urine 2+ (Negative); CAUTI Indications for Culture Dysuria,urgency,freq; Clarity Turbid (Clear); Glucose, Urine (Dipstick) Normal (Negative); Ketone, Urine Negative (Negative); Leukocyte 500 Leu/uL (Negative); Nitrite 2+ (Negative); Protein, Urine (Dipstick) 10 mg/dL (Neg-Trace); Specific Gravity, Urine 1.013 (1.002-1.036); Squamous Epithelial 0-3 HPF (0-3); Urobilinogen Normal mg/dL (Less than 2); WBC/HPF Greater than 50 HPF (0-3); pH, Urine 6.5 (5.0-9.0)
[2022-10-12 11:56] LABS: Urine Culture Reflex Yes Yes
== END 2022-10-12 14:00 | disposition home or self-care (01) ==
LOC: ERS 10:33
DX: R33.9 Retention of urine, unspecified (principal); N39.0 Urinary tract infection, site not specified; E78.5 Hyperlipidemia, unspecified; I10 Essential (primary) hypertension; J44.9 Chronic obstructive pulmonary disease, unspecified; Z87.891 Personal history of nicotine dependence
CPT/HCPCS: 36415; 51702; 80053; 81001; 85025; 87077; 87086; 87186

== ENCOUNTER 2022-12-06 11:05 | Inpatient (IN) | payer MEDICARE ==
[2022-12-06 16:19] VITALS: BMI 21.2
[2022-12-06] MEDS ORDERED: Ipratropium/Albuterol 3 ML NEB NEB PRN (16:54)
[2022-12-06] MEDS ORDERED: diphenhydrAMINE 25 MG CAP PO PRN (17:13)
[2022-12-06] MEDS ORDERED: Senokot S 8.6-50 MG TAB PO PRN (17:13)
[2022-12-06] MEDS: Sodium Chloride 0.9% 1,000 ML IV SCH (18:05)
[2022-12-06 18:23] LABS: #Eosinphils 0.2 thou/uL (0.0-0.7); #Monocytes 1.1 thou/uL (0.11-0.59); #Neutrophils 6.5 thou/uL (1.40-6.50); %Basophils 0.3 % (0.0-1.0); %Eosinophils 2.3 % (0.0-10.0); %Lymphocytes 25.6 % (21.0-51.0); %Monocytes 9.9 % (0.0-10.0); %Neutrophils 60.8 % (42.0-75.0); Hematocrit 24.3 % (42.0-52.0); Hemoglobin 7.2 g/dL (14.0-18.0); Mean Corpuscular HGB CONC 29.6 g/dL (32.0-36.0); Mean Corpuscular Hemoglobin 24.9 pg (27.0-31.0); Mean Corpuscular Volume 84.1 fl (78.0-98.0); Mean Platelet Volume 8.4 fL (7.4-10.4); Platelet Count 557 10x3/uL (130-400); RBC Distribution Width 15.8 % (11.5-14.5); Red Blood Cell (RBC) Count 2.89 mill/uL (4.70-6.10); White Blood Cell (WBC) Count 10.6 10x3/uL (4.8-10.8)
[2022-12-06] MEDS ORDERED: RIFAMPIN IVPB PRN (18:44)
[2022-12-06] MEDS ORDERED: DAPTOMYCIN IVPB PRN (18:44)
[2022-12-06 18:47] LABS: ALT (SGPT) 10 U/L (8-55); AST (SGOT) 20 U/L (5-34); Albumin 2.9 g/dL (3.4-4.8); Alkaline Phosphatase 117 U/L (40-110); Anion Gap 19 mmol/L (10-20); BUN (Urea Nitrogen) 17 mg/dL (8.4-25.7); Bilirubin, Total 0.3 mg/dL (0.2-1.2); Calc. Creatinine Clearance 64 mL/min (70-130); Calcium 9.4 mg/dL (7.8-10.44); Carbon Dioxide 23 mmol/L (23-31); Chloride 103 mmol/L (98-107); Estimated GFR 75; Globulin 5.4 g/dL (2.4-3.5); Glucose 107 mg/dL (83-110); Potassium 5.1 mmol/L (3.5-5.1); Protein, Total 8.3 g/dL (5.8-8.1); Sodium 140 mmol/L (136-145)
[2022-12-06] MEDS: Mometasone 200 MCG/Formoterol 5 MCG 120 PUFF INHALER INH SCH (19:24)
[2022-12-06] MEDS ORDERED: Acetaminophen 500 MG TAB PO SCH (20:15)
[2022-12-06] MEDS: Simvastatin 10 MG TAB PO SCH (20:41)
[2022-12-06] MEDS: Donepezil HCl 10 MG TAB PO SCH (20:41)
[2022-12-06] MEDS ORDERED: RIFAMPIN IVPB SCH (21:00)
[2022-12-06] MEDS: Rifampin 600 MG in Sodium Chloride 0.9% 100 ML IVPB SCH (21:55)
[2022-12-06] MEDS ORDERED: Piperacillin/Tazobactam 3.375 GM in Sodium Chloride 0.9% 100 ML IVPB SCH (22:00)
[2022-12-06] MEDS: Colestipol 1 GM TAB PO SCH ×2 (22:52→23:13)
[2022-12-06] MEDS: Piperacillin/Tazobactam 3.375 GM in Sodium Chloride 0.9% 100 ML IVPB SCH (22:53)
[2022-12-07 03:38] LABS: #Eosinphils 0.3 thou/uL (0.0-0.7); #Monocytes 0.9 thou/uL (0.11-0.59); #Neutrophils 5.4 thou/uL (1.40-6.50); %Basophils 0.4 % (0.0-1.0); %Eosinophils 2.8 % (0.0-10.0); %Lymphocytes 27.1 % (21.0-51.0); %Monocytes 9.6 % (0.0-10.0); Hematocrit 23.7 % (42.0-52.0); Mean Corpuscular HGB CONC 29.5 g/dL (32.0-36.0); Mean Corpuscular Hemoglobin 24.6 pg (27.0-31.0); Mean Corpuscular Volume 83.5 fl (78.0-98.0); Mean Platelet Volume 8.3 fL (7.4-10.4); Platelet Count 506 10x3/uL (130-400); RBC Distribution Width 15.7 % (11.5-14.5); Red Blood Cell (RBC) Count 2.84 mill/uL (4.70-6.10); White Blood Cell (WBC) Count 9.2 10x3/uL (4.8-10.8)
[2022-12-07 04:02] LABS: Anion Gap 14 mmol/L (10-20); BUN (Urea Nitrogen) 18 mg/dL (8.4-25.7); Calc. Creatinine Clearance 70 mL/min (70-130); Carbon Dioxide 23 mmol/L (23-31); Chloride 102 mmol/L (98-107); Estimated GFR 84; Glucose 91 mg/dL (83-110); Potassium 3.5 mmol/L (3.5-5.1); Sodium 135 mmol/L (136-145)
[2022-12-07] MEDS: Piperacillin/Tazobactam 3.375 GM in Sodium Chloride 0.9% 100 ML IVPB SCH ×2 (06:39→14:33)
[2022-12-07] MEDS: Mometasone 200 MCG/Formoterol 5 MCG 120 PUFF INHALER INH SCH ×2 (07:14→18:53)
[2022-12-07] MEDS: Sodium Chloride 0.9% 1,000 ML IV SCH ×2 (07:52→20:21)
[2022-12-07] MEDS ORDERED: Folic Acid 1 MG TAB PO SCH (09:00)
[2022-12-07] MEDS ORDERED: DULoxetine 30 MG CAP PO SCH (09:00)
[2022-12-07] MEDS: Thiamine 100 MG TAB PO SCH (09:48)
[2022-12-07] MEDS: Acetaminophen 325 MG TAB PO PRN ×2 (09:48→20:16)
[2022-12-07] MEDS: Cyanocobalamin (Vitamin B-12) 1,000 MCG TAB PO SCH (09:49)
[2022-12-07] MEDS: Folic Acid 1 MG TAB PO SCH (09:49)
[2022-12-07] MEDS: Ferrous Gluconate 324 MG TAB PO SCH (09:50)
[2022-12-07] MEDS: Losartan 25 MG TAB PO SCH (09:50)
[2022-12-07] MEDS ORDERED: Metoprolol Tartrate 25 MG TAB PO SCH (09:56)
[2022-12-07] MEDS ORDERED: DAPTOmycin 700 MG in Sodium Chloride 0.9% 100 ML IVPB SCH (11:00)
[2022-12-07] MEDS ORDERED: DAPTOmycin 500 MG VIAL IVPB SCH (11:00)
[2022-12-07] MEDS: Colestipol 1 GM TAB PO SCH (12:09)
[2022-12-07] MEDS: DULoxetine 30 MG CAP PO SCH (12:10)
[2022-12-07] MEDS: Simvastatin 10 MG TAB PO SCH (20:15)
[2022-12-07] MEDS: traZODone HCl 50 MG TAB PO PRN (20:15)
[2022-12-07] MEDS: Donepezil HCl 10 MG TAB PO SCH (20:15)
[2022-12-07] MEDS: Metoprolol Tartrate 25 MG TAB PO SCH (20:16)
[2022-12-07] MEDS: Piperacillin/Tazobactam 4.5 GM in Sodium Chloride 0.9% 100 ML IVPB SCH (20:19)
[2022-12-07] MEDS: Rifampin 600 MG in Sodium Chloride 0.9% 100 ML IVPB SCH (20:21)
[2022-12-07 21:02] LABS: SARS-CoV-2 NAA Rapid Test DETECTED (NotDetected)
[2022-12-08] MEDS: Piperacillin/Tazobactam 4.5 GM in Sodium Chloride 0.9% 100 ML IVPB SCH ×4 (02:09→21:44)
[2022-12-08] MEDS: Acetaminophen 325 MG TAB PO PRN ×2 (04:44→09:15)
[2022-12-08] MEDS: Pantoprazole 40 MG VIAL IVP SCH (09:15)
[2022-12-08] MEDS: DULoxetine 30 MG CAP PO SCH (09:15)
[2022-12-08] MEDS: Cyanocobalamin (Vitamin B-12) 1,000 MCG TAB PO SCH (09:16)
[2022-12-08] MEDS: Metoprolol Tartrate 25 MG TAB PO SCH ×2 (09:16→21:43)
[2022-12-08] MEDS: Losartan 25 MG TAB PO SCH (09:16)
[2022-12-08] MEDS: Folic Acid 1 MG TAB PO SCH (09:17)
[2022-12-08] MEDS: Thiamine 100 MG TAB PO SCH (09:17)
[2022-12-08] MEDS: Ferrous Gluconate 324 MG TAB PO SCH (09:17)
[2022-12-08] MEDS: Mometasone 200 MCG/Formoterol 5 MCG 120 PUFF INHALER INH SCH (09:29)
[2022-12-08] MEDS: Sodium Chloride 0.9% 1,000 ML IV SCH (09:46)
[2022-12-08 09:54] LABS: #Eosinphils 0.1 thou/uL (0.0-0.7); #Monocytes 0.8 thou/uL (0.11-0.59); #Neutrophils 4.7 thou/uL (1.40-6.50); %Basophils 0.5 % (0.0-1.0); %Eosinophils 1.7 % (0.0-10.0); %Lymphocytes 26.3 % (21.0-51.0); %Monocytes 9.7 % (0.0-10.0); %Neutrophils 60.8 % (42.0-75.0); Hematocrit 22.6 % (42.0-52.0); Mean Corpuscular Volume 80.7 fl (78.0-98.0); Mean Platelet Volume 8.5 fL (7.4-10.4); Platelet Count 464 10x3/uL (130-400); RBC Distribution Width 15.7 % (11.5-14.5); White Blood Cell (WBC) Count 7.7 10x3/uL (4.8-10.8)
[2022-12-08 10:15] LABS: Anion Gap 12 mmol/L (10-20); BUN (Urea Nitrogen) 13 mg/dL (8.4-25.7); Calc. Creatinine Clearance 74 mL/min (70-130); Calcium 8.6 mg/dL (7.8-10.44); Carbon Dioxide 21 mmol/L (23-31); Chloride 104 mmol/L (98-107); Estimated GFR 90; Glucose 109 mg/dL (83-110); Potassium 3.4 mmol/L (3.5-5.1); Sodium 134 mmol/L (136-145)
[2022-12-08] MEDS ORDERED: DAPTOmycin 700 MG in Sodium Chloride 0.9% 50 ML IVPB SCH (11:00)
[2022-12-08] MEDS: Simvastatin 10 MG TAB PO SCH (21:43)
[2022-12-08] MEDS: Multivit, Therapeutic 1 TAB PO SCH (21:43)
[2022-12-08] MEDS: traZODone HCl 50 MG TAB PO PRN (21:43)
[2022-12-08] MEDS: Senokot S 8.6-50 MG TAB PO SCH (21:43)
[2022-12-08] MEDS: Donepezil HCl 10 MG TAB PO SCH (21:43)
[2022-12-08] MEDS: HYDROcodone/Acetaminophen 7.5/325 mg Tablet PO PRN (21:43)
[2022-12-09] MEDS: Sodium Chloride 0.9% 1,000 ML IV SCH ×2 (00:35→12:17)
[2022-12-09] MEDS: Piperacillin/Tazobactam 4.5 GM in Sodium Chloride 0.9% 100 ML IVPB SCH ×4 (03:24→22:19)
[2022-12-09 08:06] LABS: #Eosinphils 0.1 thou/uL (0.0-0.7); #Monocytes 0.5 thou/uL (0.11-0.59); #Neutrophils 4.4 thou/uL (1.40-6.50); %Basophils 0.3 % (0.0-1.0); %Eosinophils 1.7 % (0.0-10.0); %Lymphocytes 27.3 % (21.0-51.0); %Monocytes 7.7 % (0.0-10.0); %Neutrophils 62.1 % (42.0-75.0); Hematocrit 24.6 % (42.0-52.0); Hemoglobin 7.4 g/dL (14.0-18.0); Mean Corpuscular HGB CONC 30.1 g/dL (32.0-36.0); Mean Corpuscular Hemoglobin 24.9 pg (27.0-31.0); Mean Corpuscular Volume 82.8 fl (78.0-98.0); Mean Platelet Volume 8.4 fL (7.4-10.4); Platelet Count 435 10x3/uL (130-400); RBC Distribution Width 15.7 % (11.5-14.5); Red Blood Cell (RBC) Count 2.97 mill/uL (4.70-6.10)
[2022-12-09] MEDS: Cyanocobalamin (Vitamin B-12) 1,000 MCG TAB PO SCH (08:07)
[2022-12-09] MEDS: DULoxetine 30 MG CAP PO SCH (08:07)
[2022-12-09] MEDS: Senokot S 8.6-50 MG TAB PO SCH ×2 (08:08→22:25)
[2022-12-09] MEDS: Thiamine 100 MG TAB PO SCH (08:09)
[2022-12-09] MEDS: Metoprolol Tartrate 25 MG TAB PO SCH ×2 (08:09→22:21)
[2022-12-09] MEDS: Saccharomyces boulardii 250 MG CAP PO SCH (08:09)
[2022-12-09] MEDS: Losartan 25 MG TAB PO SCH (08:09)
[2022-12-09] MEDS: Ferrous Gluconate 324 MG TAB PO SCH (08:09)
[2022-12-09] MEDS: Folic Acid 1 MG TAB PO SCH (08:09)
[2022-12-09] MEDS: Pantoprazole 40 MG VIAL IVP SCH (08:10)
[2022-12-09 08:27] LABS: Anion Gap 15 mmol/L (10-20); BUN (Urea Nitrogen) 10 mg/dL (8.4-25.7); Calc. Creatinine Clearance 93 mL/min (70-130); Calcium 8.4 mg/dL (7.8-10.44); Carbon Dioxide 19 mmol/L (23-31); Chloride 104 mmol/L (98-107); Estimated GFR 96; Glucose 90 mg/dL (83-110); Magnesium 1.7 mg/dL (1.6-2.6); Phosphorus 2.9 mg/dL (2.3-4.7); Potassium 3.3 mmol/L (3.5-5.1); Sodium 135 mmol/L (136-145)
[2022-12-09] MEDS ORDERED: Potassium Chloride 20 MEQ TAB PO SCH (09:15)
[2022-12-09] MEDS ORDERED: Magnesium 2 GM/50 ML(in water) 2 GM in Premix Bag 1 BAG IVPB SCH (09:15)
[2022-12-09] MEDS ORDERED: Electrolyte Replacement Protocol 1 EACH FS SCH (09:15)
[2022-12-09] MEDS: Mometasone 200 MCG/Formoterol 5 MCG 120 PUFF INHALER INH SCH ×3 (09:16→17:35)
[2022-12-09] MEDS: Acetaminophen 325 MG TAB PO PRN (12:17)
[2022-12-09] MEDS: HYDROcodone/Acetaminophen 7.5/325 mg Tablet PO PRN (18:08)
[2022-12-09] MEDS ORDERED: Lactated Ringer's 1,000 ML IV SCH (18:45)
[2022-12-09] MEDS ORDERED: Ergocalciferol 1.25 MG(50,000 UNITS) CAP PO SCH (21:00)
[2022-12-09] MEDS ORDERED: Cholecalciferol 1,000 UNITS (25 MCG) TAB PO SCH ×2 (21:00)
[2022-12-09] MEDS: Donepezil HCl 10 MG TAB PO SCH (22:21)
[2022-12-09] MEDS: Simvastatin 10 MG TAB PO SCH (22:21)
[2022-12-09] MEDS: Multivit, Therapeutic 1 TAB PO SCH (22:21)
[2022-12-10] MEDS: Albuterol 200 PUFF (6.7GM INHALER) INH PRN (01:24)
[2022-12-10] MEDS: Piperacillin/Tazobactam 4.5 GM in Sodium Chloride 0.9% 100 ML IVPB SCH ×4 (01:32→19:57)
[2022-12-10 04:44] LABS: #Eosinphils 0.2 thou/uL (0.0-0.7); #Monocytes 0.6 thou/uL (0.11-0.59); #Neutrophils 3.2 thou/uL (1.40-6.50); %Basophils 0.3 % (0.0-1.0); %Eosinophils 2.6 % (0.0-10.0); %Lymphocytes 35.7 % (21.0-51.0); %Monocytes 9.7 % (0.0-10.0); %Neutrophils 51.1 % (42.0-75.0); Hematocrit 22.3 % (42.0-52.0); Hemoglobin 6.8 g/dL (14.0-18.0); Mean Corpuscular HGB CONC 30.5 g/dL (32.0-36.0); Mean Corpuscular Hemoglobin 24.5 pg (27.0-31.0); Mean Platelet Volume 8.5 fL (7.4-10.4); Platelet Count 410 10x3/uL (130-400); RBC Distribution Width 15.7 % (11.5-14.5); Red Blood Cell (RBC) Count 2.78 mill/uL (4.70-6.10); White Blood Cell (WBC) Count 6.2 10x3/uL (4.8-10.8)
[2022-12-10 04:50] LABS: Mean Corpuscular Volume 80.2 fl (78.0-98.0)
[2022-12-10 05:13] LABS: ALT (SGPT) 9 U/L (8-55); AST (SGOT) 21 U/L (5-34); Albumin 2.4 g/dL (3.4-4.8); Alkaline Phosphatase 85 U/L (40-110); Anion Gap 12 mmol/L (10-20); BUN (Urea Nitrogen) 9 mg/dL (8.4-25.7); Bilirubin, Total 0.3 mg/dL (0.2-1.2); Calc. Creatinine Clearance 81 mL/min (70-130); Calcium 8.5 mg/dL (7.8-10.44); Carbon Dioxide 22 mmol/L (23-31); Chloride 106 mmol/L (98-107); Estimated GFR 92; Globulin 4.8 g/dL (2.4-3.5); Glucose 93 mg/dL (83-110); Magnesium 1.9 mg/dL (1.6-2.6); Potassium 3.2 mmol/L (3.5-5.1); Protein, Total 7.2 g/dL (5.8-8.1); Sodium 137 mmol/L (136-145)
[2022-12-10] MEDS: HYDROcodone/Acetaminophen 7.5/325 mg Tablet PO PRN (05:24)
[2022-12-10] MEDS ORDERED: Potassium Chloride 20 MEQ TAB PO SCH (08:00)
[2022-12-10] MEDS ORDERED: Magnesium 2 GM/50 ML(in water) 2 GM in Premix Bag 1 BAG IVPB SCH (08:00)
[2022-12-10] MEDS: Saccharomyces boulardii 250 MG CAP PO SCH (08:58)
[2022-12-10] MEDS: Thiamine 100 MG TAB PO SCH (08:58)
[2022-12-10] MEDS: Cyanocobalamin (Vitamin B-12) 1,000 MCG TAB PO SCH (08:58)
[2022-12-10] MEDS: Calcium Carbonate 600 MG + Vit D TAB PO SCH ×2 (08:58→16:30)
[2022-12-10] MEDS: Folic Acid 1 MG TAB PO SCH (08:58)
[2022-12-10] MEDS: Losartan 25 MG TAB PO SCH (08:58)
[2022-12-10] MEDS: Senokot S 8.6-50 MG TAB PO SCH ×2 (08:58→19:57)
[2022-12-10] MEDS: D5 LR w/20 mEq KCL 1,000 ML IV SCH (08:58)
[2022-12-10] MEDS: DULoxetine 30 MG CAP PO SCH (08:58)
[2022-12-10] MEDS: pyridOXINE 50 MG (B6) TAB PO SCH (08:59)
[2022-12-10] MEDS: Metoprolol Tartrate 25 MG TAB PO SCH ×2 (08:59→19:58)
[2022-12-10] MEDS: Acetaminophen 325 MG TAB PO PRN ×2 (09:21→16:30)
[2022-12-10] MEDS: Mometasone 200 MCG/Formoterol 5 MCG 120 PUFF INHALER INH SCH (09:28)
[2022-12-10] MEDS: Simvastatin 10 MG TAB PO SCH (19:57)
[2022-12-10] MEDS: Zinc Sulfate 220 MG CAP PO SCH (19:58)
[2022-12-10] MEDS: Multivit, Therapeutic 1 TAB PO SCH (19:58)
[2022-12-10] MEDS: Donepezil HCl 10 MG TAB PO SCH (19:58)
[2022-12-11] MEDS: Mometasone 200 MCG/Formoterol 5 MCG 120 PUFF INHALER INH SCH ×3 (00:15→19:24)
[2022-12-11] MEDS: traZODone HCl 50 MG TAB PO PRN ×2 (01:17→23:01)
[2022-12-11] MEDS: HYDROcodone/Acetaminophen 7.5/325 mg Tablet PO PRN ×2 (01:17→23:01)
[2022-12-11] MEDS: Piperacillin/Tazobactam 4.5 GM in Sodium Chloride 0.9% 100 ML IVPB SCH ×4 (01:20→20:00)
[2022-12-11] MEDS: D5 LR w/20 mEq KCL 1,000 ML IV SCH ×2 (02:27→23:05)
[2022-12-11 04:36] LABS: Hematocrit 26.9 % (42.0-52.0); Hemoglobin 8.1 g/dL (14.0-18.0); Mean Corpuscular HGB CONC 30.1 g/dL (32.0-36.0); Mean Corpuscular Hemoglobin 24.6 pg (27.0-31.0); Mean Corpuscular Volume 81.8 fl (78.0-98.0); Mean Platelet Volume 8.6 fL (7.4-10.4); Platelet Count 429 10x3/uL (130-400); RBC Distribution Width 15.9 % (11.5-14.5); Red Blood Cell (RBC) Count 3.29 mill/uL (4.70-6.10); White Blood Cell (WBC) Count 5.2 10x3/uL (4.8-10.8)
[2022-12-11 04:41] LABS: Delete Auto Diff?? YES; Manual Diff?? YES
[2022-12-11 04:59] LABS: ALT (SGPT) 10 U/L (8-55); AST (SGOT) 22 U/L (5-34); Albumin 2.5 g/dL (3.4-4.8); Alkaline Phosphatase 80 U/L (40-110); Anion Gap 14 mmol/L (10-20); BUN (Urea Nitrogen) 9 mg/dL (8.4-25.7); Bilirubin, Total 0.3 mg/dL (0.2-1.2); CRP (Inflammatory) 13.04 mg/dL (= or < 0.5); Calc. Creatinine Clearance 83 mL/min (70-130); Calcium 8.5 mg/dL (7.8-10.44); Carbon Dioxide 22 mmol/L (23-31); Chloride 105 mmol/L (98-107); Estimated GFR 93; Globulin 4.8 g/dL (2.4-3.5); Glucose 89 mg/dL (83-110); Magnesium 1.9 mg/dL (1.6-2.6); Phosphorus 2.9 mg/dL (2.3-4.7); Potassium 3.8 mmol/L (3.5-5.1); Protein, Total 7.3 g/dL (5.8-8.1); Sodium 137 mmol/L (136-145)
[2022-12-11] MEDS ORDERED: Magnesium 2 GM/50 ML(in water) 2 GM in Premix Bag 1 BAG IVPB SCH (08:00)
[2022-12-11] MEDS: Thiamine 100 MG TAB PO SCH (08:35)
[2022-12-11] MEDS: Saccharomyces boulardii 250 MG CAP PO SCH (08:35)
[2022-12-11] MEDS: Folic Acid 1 MG TAB PO SCH (08:35)
[2022-12-11] MEDS: Cyanocobalamin (Vitamin B-12) 1,000 MCG TAB PO SCH (08:35)
[2022-12-11] MEDS: Losartan 25 MG TAB PO SCH (08:35)
[2022-12-11] MEDS: DULoxetine 30 MG CAP PO SCH (08:35)
[2022-12-11] MEDS: Calcium Carbonate 600 MG + Vit D TAB PO SCH ×2 (08:35→16:41)
[2022-12-11] MEDS: pyridOXINE 50 MG (B6) TAB PO SCH (08:35)
[2022-12-11] MEDS: Metoprolol Tartrate 25 MG TAB PO SCH ×2 (08:35→21:28)
[2022-12-11] MEDS: Senokot S 8.6-50 MG TAB PO SCH ×2 (08:35→21:28)
[2022-12-11 11:30] LABS: Band 11 % (5-11); Lymphocytes 34 % (21-51); Monocytes 5 % (0-10); Neutrophil 48 % (42-75); Platelet Adequacy Comment Platelets Increased; Polychromasia SLIGHT = 2-3 cells (100X) (0-2/hpf); Reactive Lymphocytes 1 % (0-10)
[2022-12-11] MEDS: Albuterol 200 PUFF (6.7GM INHALER) INH PRN (19:23)
[2022-12-11] MEDS: Multivit, Therapeutic 1 TAB PO SCH (21:28)
[2022-12-11] MEDS: Zinc Sulfate 220 MG CAP PO SCH (21:28)
[2022-12-11] MEDS: Simvastatin 10 MG TAB PO SCH (21:28)
[2022-12-11] MEDS: Donepezil HCl 10 MG TAB PO SCH (21:29)
[2022-12-12] MEDS: Piperacillin/Tazobactam 4.5 GM in Sodium Chloride 0.9% 100 ML IVPB SCH ×4 (02:02→21:51)
[2022-12-12 04:36] LABS: Hematocrit 25.9 % (42.0-52.0); Hemoglobin 7.8 g/dL (14.0-18.0); Mean Corpuscular HGB CONC 30.1 g/dL (32.0-36.0); Mean Corpuscular Hemoglobin 24.9 pg (27.0-31.0); Mean Corpuscular Volume 82.7 fl (78.0-98.0); Mean Platelet Volume 8.7 fL (7.4-10.4); Platelet Count 421 10x3/uL (130-400); RBC Distribution Width 15.9 % (11.5-14.5); Red Blood Cell (RBC) Count 3.13 mill/uL (4.70-6.10); White Blood Cell (WBC) Count 6.1 10x3/uL (4.8-10.8)
[2022-12-12 04:46] LABS: Delete Auto Diff?? YES; Manual Diff?? YES
[2022-12-12 05:01] LABS: Anion Gap 13 mmol/L (10-20); BUN (Urea Nitrogen) 15 mg/dL (8.4-25.7); Calc. Creatinine Clearance 84 mL/min (70-130); Calcium 8.8 mg/dL (7.8-10.44); Carbon Dioxide 24 mmol/L (23-31); Chloride 103 mmol/L (98-107); Estimated GFR 93; Glucose 90 mg/dL (83-110); Magnesium 1.9 mg/dL (1.6-2.6); Potassium 4.1 mmol/L (3.5-5.1); Sodium 136 mmol/L (136-145)
[2022-12-12 05:12] LABS: Band 4 % (5-11); Burr Cells SLIGHT = 2-5 cells HPF (0-1); CellaVision Operator ID lab.abc; Eosinophils 1 % (0-10); Lymphocytes 31 % (21-51); Monocytes 5 % (0-10); Neutrophil 59 % (42-75); Platelet Adequacy Comment Platelets Normal; Polychromasia SLIGHT = 2-3 cells HPF (0-2); Smudge Cells 16.2 %; Total Cell Count 99
[2022-12-12] MEDS ORDERED: Magnesium 2 GM/50 ML(in water) 2 GM in Premix Bag 1 BAG IVPB SCH (07:45)
[2022-12-12] MEDS: Calcium Carbonate 600 MG + Vit D TAB PO SCH ×2 (08:49→17:17)
[2022-12-12] MEDS: Folic Acid 1 MG TAB PO SCH (08:49)
[2022-12-12] MEDS: Thiamine 100 MG TAB PO SCH (08:49)
[2022-12-12] MEDS: Losartan 25 MG TAB PO SCH (08:49)
[2022-12-12] MEDS: DULoxetine 30 MG CAP PO SCH (08:49)
[2022-12-12] MEDS: pyridOXINE 50 MG (B6) TAB PO SCH (08:49)
[2022-12-12] MEDS: Metoprolol Tartrate 25 MG TAB PO SCH ×2 (08:49→21:51)
[2022-12-12] MEDS: Saccharomyces boulardii 250 MG CAP PO SCH (08:49)
[2022-12-12] MEDS: Cyanocobalamin (Vitamin B-12) 1,000 MCG TAB PO SCH (08:49)
[2022-12-12] MEDS: Mometasone 200 MCG/Formoterol 5 MCG 120 PUFF INHALER INH SCH ×2 (08:50→21:57)
[2022-12-12] MEDS: Senokot S 8.6-50 MG TAB PO SCH ×2 (09:21→21:52)
[2022-12-12] MEDS: Donepezil HCl 10 MG TAB PO SCH (21:51)
[2022-12-12] MEDS: Simvastatin 10 MG TAB PO SCH (21:51)
[2022-12-12] MEDS: Zinc Sulfate 220 MG CAP PO SCH (21:51)
[2022-12-12] MEDS: Multivit, Therapeutic 1 TAB PO SCH (21:51)
[2022-12-13] MEDS: D5 LR w/20 mEq KCL 1,000 ML IV SCH (00:45)
[2022-12-13] MEDS: HYDROcodone/Acetaminophen 7.5/325 mg Tablet PO PRN (02:20)
[2022-12-13] MEDS: Piperacillin/Tazobactam 4.5 GM in Sodium Chloride 0.9% 100 ML IVPB SCH ×3 (02:22→16:17)
[2022-12-13 04:54] LABS: Hematocrit 24.5 % (42.0-52.0); Hemoglobin 7.7 g/dL (14.0-18.0); Mean Corpuscular HGB CONC 31.4 g/dL (32.0-36.0); Mean Corpuscular Hemoglobin 25.2 pg (27.0-31.0); Mean Corpuscular Volume 80.1 fl (78.0-98.0); Mean Platelet Volume 8.4 fL (7.4-10.4); Platelet Count 399 10x3/uL (130-400); RBC Distribution Width 15.9 % (11.5-14.5); Red Blood Cell (RBC) Count 3.06 mill/uL (4.70-6.10); White Blood Cell (WBC) Count 6.4 10x3/uL (4.8-10.8)
[2022-12-13 05:45] LABS: Delete Auto Diff?? YES; Manual Diff?? YES
[2022-12-13 07:12] LABS: Anion Gap 13 mmol/L (10-20); BUN (Urea Nitrogen) 12 mg/dL (8.4-25.7); Calc. Creatinine Clearance 74 mL/min (70-130); Carbon Dioxide 24 mmol/L (23-31); Estimated GFR 88
[2022-12-13 07:19] LABS: Anisocytosis SLIGHT = 6-15 cells HPF (0-5); Band 9 % (5-11); CellaVision Operator ID lab.dlt; Eosinophils 3 % (0-10); Hypochromia SLIGHT = 6-15 cells HPF (0-5); Lymphocytes 24 % (21-51); Monocytes 9 % (0-10); Neutrophil 55 % (42-75); Platelet Adequacy Comment Platelets Normal; Poikilocytosis SLIGHT = 6-15 cells HPF (0-5); Polychromasia SLIGHT = 2-3 cells HPF (0-2); Total Cell Count 101
[2022-12-13] MEDS ORDERED: Magnesium 2 GM/50 ML(in water) 2 GM in Premix Bag 1 BAG IVPB SCH (08:00)
[2022-12-13 08:18] LABS: Calcium 9.2 mg/dL (7.8-10.44); Chloride 102 mmol/L (98-107); Glucose 104 mg/dL (83-110); Potassium 3.9 mmol/L (3.5-5.1); Sodium 137 mmol/L (136-145)
[2022-12-13] MEDS: Thiamine 100 MG TAB PO SCH (08:53)
[2022-12-13] MEDS: DULoxetine 30 MG CAP PO SCH (08:54)
[2022-12-13] MEDS: pyridOXINE 50 MG (B6) TAB PO SCH (08:55)
[2022-12-13] MEDS: Calcium Carbonate 600 MG + Vit D TAB PO SCH ×2 (08:55→16:17)
[2022-12-13] MEDS: Cyanocobalamin (Vitamin B-12) 1,000 MCG TAB PO SCH (08:55)
[2022-12-13] MEDS: Folic Acid 1 MG TAB PO SCH (08:55)
[2022-12-13] MEDS: Saccharomyces boulardii 250 MG CAP PO SCH (08:55)
[2022-12-13] MEDS: Senokot S 8.6-50 MG TAB PO SCH ×2 (08:55→22:16)
[2022-12-13] MEDS: Losartan 25 MG TAB PO SCH (08:56)
[2022-12-13] MEDS: Metoprolol Tartrate 25 MG TAB PO SCH ×2 (08:56→22:16)
[2022-12-13] MEDS ORDERED: D5W-AA 4.25% with LYTES 1,000 ML BAG(PPN) IV SCH (11:00)
[2022-12-13] MEDS: D5W-AA 4.25% with LYTES 1,000 ML IV SCH (11:38)
[2022-12-13] MEDS: Acetaminophen 325 MG TAB PO PRN (13:12)
[2022-12-13] MEDS: Mometasone 200 MCG/Formoterol 5 MCG 120 PUFF INHALER INH SCH ×2 (18:20→18:49)
[2022-12-13] MEDS: traZODone HCl 50 MG TAB PO PRN (22:16)
[2022-12-13] MEDS: Multivit, Therapeutic 1 TAB PO SCH (22:16)
[2022-12-13] MEDS: Ascorbic Acid 500 mg Chewable Tablet PO SCH (22:16)
[2022-12-13] MEDS: Donepezil HCl 5 MG TAB PO SCH (22:17)
[2022-12-13] MEDS: Acetaminophen 325 MG TAB PO SCH (22:17)
[2022-12-13] MEDS: Simvastatin 10 MG TAB PO SCH (22:18)
[2022-12-13] MEDS: Zinc Sulfate 220 MG CAP PO SCH (22:18)
[2022-12-14] MEDS: Piperacillin/Tazobactam 4.5 GM in Sodium Chloride 0.9% 100 ML IVPB SCH ×4 (01:39→14:49)
[2022-12-14] MEDS: HYDROcodone/Acetaminophen 7.5/325 mg Tablet PO PRN (04:12)
[2022-12-14] MEDS: Acetaminophen 325 MG TAB PO PRN (04:16)
[2022-12-14] MEDS: Cyanocobalamin (Vitamin B-12) 1,000 MCG TAB PO SCH (08:43)
[2022-12-14] MEDS: Thiamine 100 MG TAB PO SCH (08:43)
[2022-12-14] MEDS: Calcium Carbonate 600 MG + Vit D TAB PO SCH ×2 (08:43→16:34)
[2022-12-14] MEDS: Metoprolol Tartrate 25 MG TAB PO SCH ×2 (08:43→21:23)
[2022-12-14] MEDS: Folic Acid 1 MG TAB PO SCH (08:43)
[2022-12-14] MEDS: DULoxetine 30 MG CAP PO SCH (08:43)
[2022-12-14] MEDS: Saccharomyces boulardii 250 MG CAP PO SCH (08:43)
[2022-12-14] MEDS: Losartan 25 MG TAB PO SCH (08:43)
[2022-12-14] MEDS: pyridOXINE 50 MG (B6) TAB PO SCH (08:44)
[2022-12-14] MEDS: Acetaminophen 325 MG TAB PO SCH ×3 (08:44→21:23)
[2022-12-14] MEDS: Mometasone 200 MCG/Formoterol 5 MCG 120 PUFF INHALER INH SCH ×2 (08:44→18:51)
[2022-12-14] MEDS: Senokot S 8.6-50 MG TAB PO SCH ×2 (08:44→21:22)
[2022-12-14] MEDS: D5W-AA 4.25% with LYTES 1,000 ML IV SCH (16:34)
[2022-12-14] MEDS: Donepezil HCl 5 MG TAB PO SCH (21:22)
[2022-12-14] MEDS: Multivit, Therapeutic 1 TAB PO SCH (21:22)
[2022-12-14] MEDS: Zinc Sulfate 220 MG CAP PO SCH (21:22)
[2022-12-14] MEDS: traZODone HCl 50 MG TAB PO PRN (21:23)
[2022-12-14] MEDS: Ascorbic Acid 500 mg Chewable Tablet PO SCH (21:23)
[2022-12-14] MEDS: Simvastatin 10 MG TAB PO SCH (21:24)
[2022-12-15] MEDS: pyridOXINE 50 MG (B6) TAB PO SCH (08:46)
[2022-12-15] MEDS: Senokot S 8.6-50 MG TAB PO SCH ×2 (08:46→21:14)
[2022-12-15] MEDS: Thiamine 100 MG TAB PO SCH (08:46)
[2022-12-15] MEDS: Acetaminophen 325 MG TAB PO SCH ×3 (08:46→21:15)
[2022-12-15] MEDS: Losartan 25 MG TAB PO SCH (08:46)
[2022-12-15] MEDS: DULoxetine 30 MG CAP PO SCH (08:46)
[2022-12-15] MEDS: Saccharomyces boulardii 250 MG CAP PO SCH (08:46)
[2022-12-15] MEDS: Folic Acid 1 MG TAB PO SCH (08:47)
[2022-12-15] MEDS: Cyanocobalamin (Vitamin B-12) 1,000 MCG TAB PO SCH (08:47)
[2022-12-15] MEDS: Metoprolol Tartrate 25 MG TAB PO SCH ×2 (08:47→21:14)
[2022-12-15] MEDS: Calcium Carbonate 600 MG + Vit D TAB PO SCH ×2 (08:47→17:00)
[2022-12-15] MEDS: Albuterol 200 PUFF (6.7GM INHALER) INH PRN (08:52)
[2022-12-15 10:10] LABS: #Basophils 0.1 thou/uL (0.0-0.2); #Eosinphils 0.2 thou/uL (0.0-0.7); #Monocytes 0.7 thou/uL (0.11-0.59); #Neutrophils 4.6 thou/uL (1.40-6.50); %Basophils 0.6 % (0.0-1.0); %Eosinophils 2.7 % (0.0-10.0); %Monocytes 7.4 % (0.0-10.0); %Neutrophils 51.3 % (42.0-75.0); Hematocrit 28.2 % (42.0-52.0); Hemoglobin 8.6 g/dL (14.0-18.0); Mean Corpuscular HGB CONC 30.5 g/dL (32.0-36.0); Mean Corpuscular Hemoglobin 25.1 pg (27.0-31.0); Mean Corpuscular Volume 82.2 fl (78.0-98.0); Mean Platelet Volume 8.5 fL (7.4-10.4); Platelet Count 505 10x3/uL (130-400); RBC Distribution Width 16.2 % (11.5-14.5); Red Blood Cell (RBC) Count 3.43 mill/uL (4.70-6.10)
[2022-12-15] MEDS: Mometasone 200 MCG/Formoterol 5 MCG 120 PUFF INHALER INH SCH ×2 (10:20→17:46)
[2022-12-15 10:31] LABS: Anion Gap 12 mmol/L (10-20); BUN (Urea Nitrogen) 26 mg/dL (8.4-25.7); Calc. Creatinine Clearance 56 mL/min (70-130); Calcium 9.7 mg/dL (7.8-10.44); Carbon Dioxide 26 mmol/L (23-31); Chloride 105 mmol/L (98-107); Estimated GFR 63; Glucose 143 mg/dL (83-110); Magnesium 1.9 mg/dL (1.6-2.6); Phosphorus 3.4 mg/dL (2.3-4.7); Potassium 3.6 mmol/L (3.5-5.1); Sodium 139 mmol/L (136-145)
[2022-12-15] MEDS ORDERED: Magnesium 2 GM/50 ML(in water) 2 GM in Premix Bag 1 BAG IVPB SCH (12:30)
[2022-12-15] MEDS: Multivit, Therapeutic 1 TAB PO SCH (21:13)
[2022-12-15] MEDS: Ascorbic Acid 500 mg Chewable Tablet PO SCH (21:13)
[2022-12-15] MEDS: Donepezil HCl 5 MG TAB PO SCH (21:14)
[2022-12-15] MEDS: Zinc Sulfate 220 MG CAP PO SCH (21:14)
[2022-12-15] MEDS: Simvastatin 10 MG TAB PO SCH (21:14)
[2022-12-15] MEDS: traZODone HCl 50 MG TAB PO PRN (21:14)
[2022-12-15] MEDS ORDERED: Lorazepam 2 MG/ML VIAL SLOW IVP SCH (22:00)
[2022-12-15] MEDS ORDERED: Lidocaine 4% Patch TD SCH (22:00)
[2022-12-16] MEDS: Mometasone 200 MCG/Formoterol 5 MCG 120 PUFF INHALER INH SCH ×2 (07:32→17:46)
[2022-12-16] MEDS: Losartan 25 MG TAB PO SCH (08:37)
[2022-12-16] MEDS: Cyanocobalamin (Vitamin B-12) 1,000 MCG TAB PO SCH (08:37)
[2022-12-16] MEDS: Saccharomyces boulardii 250 MG CAP PO SCH (08:38)
[2022-12-16] MEDS: Thiamine 100 MG TAB PO SCH (08:38)
[2022-12-16] MEDS: Ferrous Gluconate 324 MG TAB PO SCH (08:38)
[2022-12-16] MEDS: DULoxetine 30 MG CAP PO SCH (08:38)
[2022-12-16] MEDS: Calcium Carbonate 600 MG + Vit D TAB PO SCH ×2 (08:38→17:46)
[2022-12-16] MEDS: Metoprolol Tartrate 25 MG TAB PO SCH ×2 (08:38→20:11)
[2022-12-16] MEDS: pyridOXINE 50 MG (B6) TAB PO SCH (08:38)
[2022-12-16] MEDS: Folic Acid 1 MG TAB PO SCH (08:38)
[2022-12-16] MEDS: Senokot S 8.6-50 MG TAB PO SCH ×2 (08:39→20:12)
[2022-12-16] MEDS ORDERED: Transdermal Patch Removal TOP SCH (10:00)
[2022-12-16] MEDS: traZODone HCl 50 MG TAB PO PRN (20:11)
[2022-12-16] MEDS: Ascorbic Acid 500 mg Chewable Tablet PO SCH (20:11)
[2022-12-16] MEDS: Donepezil HCl 5 MG TAB PO SCH (20:11)
[2022-12-16] MEDS: Simvastatin 10 MG TAB PO SCH (20:11)
[2022-12-16] MEDS: Zinc Sulfate 220 MG CAP PO SCH (20:12)
[2022-12-16] MEDS: Multivit, Therapeutic 1 TAB PO SCH (20:12)
[2022-12-17] MEDS: Mometasone 200 MCG/Formoterol 5 MCG 120 PUFF INHALER INH SCH ×2 (07:10→16:30)
[2022-12-17] MEDS: Cyanocobalamin (Vitamin B-12) 1,000 MCG TAB PO SCH (08:52)
[2022-12-17] MEDS: Thiamine 100 MG TAB PO SCH (08:52)
[2022-12-17] MEDS: Metoprolol Tartrate 25 MG TAB PO SCH ×2 (08:52→20:23)
[2022-12-17] MEDS: Calcium Carbonate 600 MG + Vit D TAB PO SCH ×2 (08:52→16:30)
[2022-12-17] MEDS: DULoxetine 30 MG CAP PO SCH (08:52)
[2022-12-17] MEDS: pyridOXINE 50 MG (B6) TAB PO SCH (08:52)
[2022-12-17] MEDS: Acetaminophen 325 MG TAB PO PRN ×2 (08:52→16:30)
[2022-12-17] MEDS: Losartan 25 MG TAB PO SCH (08:52)
[2022-12-17] MEDS: Ferrous Gluconate 324 MG TAB PO SCH (08:52)
[2022-12-17] MEDS: Folic Acid 1 MG TAB PO SCH (08:52)
[2022-12-17] MEDS: Saccharomyces boulardii 250 MG CAP PO SCH (08:52)
[2022-12-17] MEDS: Senokot S 8.6-50 MG TAB PO SCH ×2 (08:53→19:57)
[2022-12-17] MEDS: Zinc Sulfate 220 MG CAP PO SCH (20:23)
[2022-12-17] MEDS: Donepezil HCl 5 MG TAB PO SCH (20:23)
[2022-12-17] MEDS: traZODone HCl 50 MG TAB PO PRN (20:23)
[2022-12-17] MEDS: Simvastatin 10 MG TAB PO SCH (20:23)
[2022-12-17] MEDS: Multivit, Therapeutic 1 TAB PO SCH (20:23)
[2022-12-17] MEDS: Ascorbic Acid 500 mg Chewable Tablet PO SCH (20:23)
[2022-12-18] MEDS: Mometasone 200 MCG/Formoterol 5 MCG 120 PUFF INHALER INH SCH ×2 (07:11→18:43)
[2022-12-18] MEDS: Calcium Carbonate 600 MG + Vit D TAB PO SCH ×2 (08:34→16:39)
[2022-12-18] MEDS: Metoprolol Tartrate 25 MG TAB PO SCH ×2 (08:34→21:31)
[2022-12-18] MEDS: Cyanocobalamin (Vitamin B-12) 1,000 MCG TAB PO SCH (08:34)
[2022-12-18] MEDS: DULoxetine 30 MG CAP PO SCH (08:34)
[2022-12-18] MEDS: Saccharomyces boulardii 250 MG CAP PO SCH (08:34)
[2022-12-18] MEDS: Thiamine 100 MG TAB PO SCH (08:34)
[2022-12-18] MEDS: Ferrous Gluconate 324 MG TAB PO SCH (08:35)
[2022-12-18] MEDS: Folic Acid 1 MG TAB PO SCH (08:35)
[2022-12-18] MEDS: Losartan 25 MG TAB PO SCH (08:35)
[2022-12-18] MEDS: pyridOXINE 50 MG (B6) TAB PO SCH (08:35)
[2022-12-18] MEDS: Acetaminophen 325 MG TAB PO PRN (08:35)
[2022-12-18] MEDS: Senokot S 8.6-50 MG TAB PO SCH ×2 (08:35→21:32)
[2022-12-18] MEDS: Multivit, Therapeutic 1 TAB PO SCH (21:31)
[2022-12-18] MEDS: traZODone HCl 50 MG TAB PO PRN (21:31)
[2022-12-18] MEDS: Ascorbic Acid 500 mg Chewable Tablet PO SCH (21:31)
[2022-12-18] MEDS: Simvastatin 10 MG TAB PO SCH (21:31)
[2022-12-18] MEDS: Donepezil HCl 5 MG TAB PO SCH (21:31)
[2022-12-18] MEDS: Zinc Sulfate 220 MG CAP PO SCH (21:31)
[2022-12-19] MEDS: Mometasone 200 MCG/Formoterol 5 MCG 120 PUFF INHALER INH SCH ×2 (07:16→18:33)
[2022-12-19] MEDS: Losartan 25 MG TAB PO SCH ×2 (08:49→08:59)
[2022-12-19] MEDS: Calcium Carbonate 600 MG + Vit D TAB PO SCH ×3 (08:49→18:04)
[2022-12-19] MEDS: Ferrous Gluconate 324 MG TAB PO SCH ×2 (08:49→08:58)
[2022-12-19] MEDS: Folic Acid 1 MG TAB PO SCH ×2 (08:49→08:59)
[2022-12-19] MEDS: Saccharomyces boulardii 250 MG CAP PO SCH ×2 (08:49→09:00)
[2022-12-19] MEDS: Thiamine 100 MG TAB PO SCH ×2 (08:50→09:00)
[2022-12-19] MEDS: Cyanocobalamin (Vitamin B-12) 1,000 MCG TAB PO SCH ×2 (08:50→08:58)
[2022-12-19] MEDS: pyridOXINE 50 MG (B6) TAB PO SCH ×2 (08:50→08:59)
[2022-12-19] MEDS: DULoxetine 30 MG CAP PO SCH ×2 (08:50→08:58)
[2022-12-19] MEDS: Senokot S 8.6-50 MG TAB PO SCH ×3 (08:50→21:40)
[2022-12-19] MEDS: Metoprolol Tartrate 25 MG TAB PO SCH ×3 (08:51→20:57)
[2022-12-19] MEDS: Acetaminophen 325 MG TAB PO PRN (14:05)
[2022-12-19] MEDS: Zinc Sulfate 220 MG CAP PO SCH (20:57)
[2022-12-19] MEDS: Multivit, Therapeutic 1 TAB PO SCH (20:57)
[2022-12-19] MEDS: traZODone HCl 50 MG TAB PO PRN (20:57)
[2022-12-19] MEDS: Donepezil HCl 5 MG TAB PO SCH (20:57)
[2022-12-19] MEDS: Simvastatin 10 MG TAB PO SCH (20:57)
[2022-12-19] MEDS: Ascorbic Acid 500 mg Chewable Tablet PO SCH (20:57)
[2022-12-20] MEDS: Mometasone 200 MCG/Formoterol 5 MCG 120 PUFF INHALER INH SCH (08:02)
[2022-12-20] MEDS: Cyanocobalamin (Vitamin B-12) 1,000 MCG TAB PO SCH (08:25)
[2022-12-20] MEDS: Saccharomyces boulardii 250 MG CAP PO SCH (08:25)
[2022-12-20] MEDS: Calcium Carbonate 600 MG + Vit D TAB PO SCH ×2 (08:25→17:09)
[2022-12-20] MEDS: Metoprolol Tartrate 25 MG TAB PO SCH ×2 (08:26→20:59)
[2022-12-20] MEDS: DULoxetine 30 MG CAP PO SCH (08:26)
[2022-12-20] MEDS: Folic Acid 1 MG TAB PO SCH (08:26)
[2022-12-20] MEDS: Senokot S 8.6-50 MG TAB PO SCH ×2 (08:26→19:33)
[2022-12-20] MEDS: Thiamine 100 MG TAB PO SCH (08:26)
[2022-12-20] MEDS: pyridOXINE 50 MG (B6) TAB PO SCH (08:26)
[2022-12-20] MEDS: Losartan 25 MG TAB PO SCH (08:27)
[2022-12-20] MEDS: Ferrous Gluconate 324 MG TAB PO SCH (08:29)
[2022-12-20] MEDS: Acetaminophen 325 MG TAB PO PRN (12:38)
[2022-12-20] MEDS: Zinc Sulfate 220 MG CAP PO SCH (20:59)
[2022-12-20] MEDS: Ascorbic Acid 500 mg Chewable Tablet PO SCH (20:59)
[2022-12-20] MEDS: Donepezil HCl 5 MG TAB PO SCH (20:59)
[2022-12-20] MEDS: Simvastatin 10 MG TAB PO SCH (20:59)
[2022-12-20] MEDS: Multivit, Therapeutic 1 TAB PO SCH (20:59)
[2022-12-20] MEDS: HYDROcodone/Acetaminophen 7.5/325 mg Tablet PO PRN (22:56)
[2022-12-21] MEDS: HYDROcodone/Acetaminophen 7.5/325 mg Tablet PO PRN ×3 (03:03→20:59)
[2022-12-21] MEDS ORDERED: Lansoprazole 15 MG/5 ML (BATCHED)UDCUP PO SCH (10:00)
[2022-12-21] MEDS: DULoxetine 30 MG CAP PO SCH ×2 (10:04→12:53)
[2022-12-21] MEDS: Cyanocobalamin (Vitamin B-12) 1,000 MCG TAB PO SCH ×2 (10:04→12:53)
[2022-12-21] MEDS: Ferrous Gluconate 324 MG TAB PO SCH (10:04)
[2022-12-21] MEDS: Calcium Carbonate 600 MG + Vit D TAB PO SCH ×4 (10:04→17:00)
[2022-12-21] MEDS: Metoprolol Tartrate 25 MG TAB PO SCH ×4 (10:14→20:56)
[2022-12-21] MEDS: Losartan 25 MG TAB PO SCH ×2 (10:14→12:52)
[2022-12-21] MEDS: Folic Acid 1 MG TAB PO SCH (10:14)
[2022-12-21] MEDS: Saccharomyces boulardii 250 MG CAP PO SCH ×2 (10:16→12:53)
[2022-12-21] MEDS: Senokot S 8.6-50 MG TAB PO SCH ×2 (10:16→20:56)
[2022-12-21] MEDS: pyridOXINE 50 MG (B6) TAB PO SCH ×2 (10:16→12:53)
[2022-12-21] MEDS: Thiamine 100 MG TAB PO SCH (10:19)
[2022-12-21] MEDS: Ascorbic Acid 500 mg Chewable Tablet PO SCH (20:55)
[2022-12-21] MEDS: Zinc Sulfate 220 MG CAP PO SCH (20:55)
[2022-12-21] MEDS: Simvastatin 10 MG TAB PO SCH (20:56)
[2022-12-21] MEDS: Multivit, Therapeutic 1 TAB PO SCH (20:56)
[2022-12-21] MEDS: Donepezil HCl 5 MG TAB PO SCH (20:56)
[2022-12-21] MEDS: traZODone HCl 50 MG TAB PO PRN (20:59)
[2022-12-22] MEDS: Calcium Carbonate 600 MG + Vit D TAB PO SCH ×2 (08:53→16:45)
[2022-12-22] MEDS: Ferrous Gluconate 324 MG TAB PO SCH (08:53)
[2022-12-22] MEDS: Thiamine 100 MG TAB PO SCH (09:51)
[2022-12-22] MEDS: pyridOXINE 50 MG (B6) TAB PO SCH (09:51)
[2022-12-22] MEDS: Saccharomyces boulardii 250 MG CAP PO SCH (09:51)
[2022-12-22] MEDS: Metoprolol Tartrate 25 MG TAB PO SCH ×2 (09:51→21:34)
[2022-12-22] MEDS: DULoxetine 30 MG CAP PO SCH (09:51)
[2022-12-22] MEDS: Lansoprazole 15 MG/5 ML (BATCHED)UDCUP PO SCH (09:51)
[2022-12-22] MEDS: Folic Acid 1 MG TAB PO SCH (09:51)
[2022-12-22] MEDS: HYDROcodone/Acetaminophen 7.5/325 mg Tablet PO PRN ×3 (09:51→21:35)
[2022-12-22] MEDS: Senokot S 8.6-50 MG TAB PO SCH ×2 (09:53→21:44)
[2022-12-22] MEDS: Losartan 25 MG TAB PO SCH (09:53)
[2022-12-22] MEDS: Cyanocobalamin (Vitamin B-12) 1,000 MCG TAB PO SCH (09:53)
[2022-12-22] MEDS: Simvastatin 10 MG TAB PO SCH (21:34)
[2022-12-22] MEDS: Donepezil HCl 5 MG TAB PO SCH (21:34)
[2022-12-22] MEDS: Zinc Sulfate 220 MG CAP PO SCH (21:34)
[2022-12-22] MEDS: Ascorbic Acid 500 mg Chewable Tablet PO SCH (21:34)
[2022-12-22] MEDS: traZODone HCl 50 MG TAB PO PRN (21:35)
[2022-12-22] MEDS: Multivit, Therapeutic 1 TAB PO SCH (21:35)
[2022-12-23] MEDS ORDERED: OLANZapine 2.5 MG TAB PO SCH (01:45)
[2022-12-23] MEDS: HYDROcodone/Acetaminophen 7.5/325 mg Tablet PO PRN ×2 (02:19→20:39)
[2022-12-23] MEDS: Acetaminophen 325 MG TAB PO PRN (06:26)
[2022-12-23] MEDS: Lansoprazole 15 MG/5 ML (BATCHED)UDCUP PO SCH (09:14)
[2022-12-23] MEDS: Folic Acid 1 MG TAB PO SCH (09:14)
[2022-12-23] MEDS: Metoprolol Tartrate 25 MG TAB PO SCH ×2 (09:14→20:36)
[2022-12-23] MEDS: Senokot S 8.6-50 MG TAB PO SCH ×2 (09:14→20:36)
[2022-12-23] MEDS: pyridOXINE 50 MG (B6) TAB PO SCH (09:14)
[2022-12-23] MEDS: Losartan 25 MG TAB PO SCH (09:14)
[2022-12-23] MEDS: Calcium Carbonate 600 MG + Vit D TAB PO SCH ×2 (09:14→16:27)
[2022-12-23] MEDS: Saccharomyces boulardii 250 MG CAP PO SCH (09:14)
[2022-12-23] MEDS: Ferrous Gluconate 324 MG TAB PO SCH (09:14)
[2022-12-23] MEDS: Thiamine 100 MG TAB PO SCH (09:14)
[2022-12-23] MEDS: DULoxetine 30 MG CAP PO SCH (09:14)
[2022-12-23] MEDS: Cyanocobalamin (Vitamin B-12) 1,000 MCG TAB PO SCH (09:14)
[2022-12-23] MEDS: Ascorbic Acid 500 mg Chewable Tablet PO SCH (20:35)
[2022-12-23] MEDS: Zinc Sulfate 220 MG CAP PO SCH (20:35)
[2022-12-23] MEDS: Donepezil HCl 5 MG TAB PO SCH (20:36)
[2022-12-23] MEDS: Simvastatin 10 MG TAB PO SCH (20:36)
[2022-12-23] MEDS: traZODone HCl 50 MG TAB PO PRN (20:36)
[2022-12-23] MEDS: Multivit, Therapeutic 1 TAB PO SCH (20:36)
[2022-12-24] MEDS: Lansoprazole 15 MG/5 ML (BATCHED)UDCUP PO SCH (08:30)
[2022-12-24] MEDS: Thiamine 100 MG TAB PO SCH (08:31)
[2022-12-24] MEDS: Calcium Carbonate 600 MG + Vit D TAB PO SCH ×2 (08:31→17:01)
[2022-12-24] MEDS: Ferrous Gluconate 324 MG TAB PO SCH (08:31)
[2022-12-24] MEDS: Cyanocobalamin (Vitamin B-12) 1,000 MCG TAB PO SCH (08:31)
[2022-12-24] MEDS: pyridOXINE 50 MG (B6) TAB PO SCH (08:31)
[2022-12-24] MEDS: DULoxetine 30 MG CAP PO SCH (08:31)
[2022-12-24] MEDS: Saccharomyces boulardii 250 MG CAP PO SCH (08:31)
[2022-12-24] MEDS: Folic Acid 1 MG TAB PO SCH (08:31)
[2022-12-24] MEDS: Metoprolol Tartrate 25 MG TAB PO SCH ×2 (08:31→20:28)
[2022-12-24] MEDS: Losartan 25 MG TAB PO SCH (08:31)
[2022-12-24] MEDS: Senokot S 8.6-50 MG TAB PO SCH ×2 (08:32→20:28)
[2022-12-24 09:07] LABS: #Basophils 0.1 thou/uL (0.0-0.2); #Eosinphils 0.3 thou/uL (0.0-0.7); #Monocytes 0.9 thou/uL (0.11-0.59); #Neutrophils 5.3 thou/uL (1.40-6.50); %Basophils 0.8 % (0.0-1.0); %Eosinophils 3.2 % (0.0-10.0); %Lymphocytes 34.4 % (21.0-51.0); %Monocytes 8.4 % (0.0-10.0); %Neutrophils 52.7 % (42.0-75.0); Hematocrit 32.9 % (42.0-52.0); Hemoglobin 9.8 g/dL (14.0-18.0); Mean Corpuscular HGB CONC 29.8 g/dL (32.0-36.0); Mean Corpuscular Hemoglobin 25.5 pg (27.0-31.0); Mean Corpuscular Volume 85.5 fl (78.0-98.0); Mean Platelet Volume 9.8 fL (7.4-10.4); Platelet Count 384 10x3/uL (130-400); RBC Distribution Width 17.6 % (11.5-14.5); Red Blood Cell (RBC) Count 3.85 mill/uL (4.70-6.10); White Blood Cell (WBC) Count 10.1 10x3/uL (4.8-10.8)
[2022-12-24 09:33] LABS: Anion Gap 16 mmol/L (10-20); BUN (Urea Nitrogen) 35 mg/dL (8.4-25.7); Calc. Creatinine Clearance 61 mL/min (70-130); Calcium 10.1 mg/dL (7.8-10.44); Carbon Dioxide 22 mmol/L (23-31); Chloride 102 mmol/L (98-107); Estimated GFR 70; Glucose 108 mg/dL (83-110); Potassium 4.2 mmol/L (3.5-5.1); Sodium 136 mmol/L (136-145)
[2022-12-24] MEDS: HYDROcodone/Acetaminophen 7.5/325 mg Tablet PO PRN (17:01)
[2022-12-24] MEDS: Zinc Sulfate 220 MG CAP PO SCH (20:27)
[2022-12-24] MEDS: traZODone HCl 50 MG TAB PO PRN (20:27)
[2022-12-24] MEDS: Simvastatin 10 MG TAB PO SCH (20:27)
[2022-12-24] MEDS: Ascorbic Acid 500 mg Chewable Tablet PO SCH (20:27)
[2022-12-24] MEDS: Donepezil HCl 5 MG TAB PO SCH (20:28)
[2022-12-24] MEDS: Multivit, Therapeutic 1 TAB PO SCH (20:28)
[2022-12-25] MEDS: Ferrous Gluconate 324 MG TAB PO SCH (08:01)
[2022-12-25] MEDS: Lansoprazole 15 MG/5 ML (BATCHED)UDCUP PO SCH (08:01)
[2022-12-25] MEDS: Calcium Carbonate 600 MG + Vit D TAB PO SCH ×2 (08:01→16:23)
[2022-12-25] MEDS: Cyanocobalamin (Vitamin B-12) 1,000 MCG TAB PO SCH (08:01)
[2022-12-25] MEDS: DULoxetine 30 MG CAP PO SCH (08:02)
[2022-12-25] MEDS: Losartan 25 MG TAB PO SCH (08:02)
[2022-12-25] MEDS: Metoprolol Tartrate 25 MG TAB PO SCH ×2 (08:02→21:22)
[2022-12-25] MEDS: Senokot S 8.6-50 MG TAB PO SCH ×2 (08:02→21:22)
[2022-12-25] MEDS: pyridOXINE 50 MG (B6) TAB PO SCH (08:02)
[2022-12-25] MEDS: Saccharomyces boulardii 250 MG CAP PO SCH (08:02)
[2022-12-25] MEDS: Folic Acid 1 MG TAB PO SCH (08:02)
[2022-12-25] MEDS: Thiamine 100 MG TAB PO SCH (08:02)
[2022-12-25] MEDS: HYDROcodone/Acetaminophen 7.5/325 mg Tablet PO PRN ×3 (08:32→19:22)
[2022-12-25] MEDS: Simvastatin 10 MG TAB PO SCH (21:22)
[2022-12-25] MEDS: Ascorbic Acid 500 mg Chewable Tablet PO SCH (21:22)
[2022-12-25] MEDS: traZODone HCl 50 MG TAB PO PRN (21:22)
[2022-12-25] MEDS: Multivit, Therapeutic 1 TAB PO SCH (21:22)
[2022-12-25] MEDS: Donepezil HCl 5 MG TAB PO SCH (21:22)
[2022-12-25] MEDS: Zinc Sulfate 220 MG CAP PO SCH (21:22)
[2022-12-25] MEDS ORDERED: diphenhydrAMINE 25 MG CAP PO SCH (22:30)
[2022-12-26] MEDS: pyridOXINE 50 MG (B6) TAB PO SCH (08:25)
[2022-12-26] MEDS: Ferrous Gluconate 324 MG TAB PO SCH (08:25)
[2022-12-26] MEDS: Losartan 25 MG TAB PO SCH (08:25)
[2022-12-26] MEDS: HYDROcodone/Acetaminophen 7.5/325 mg Tablet PO PRN (08:25)
[2022-12-26] MEDS: Cyanocobalamin (Vitamin B-12) 1,000 MCG TAB PO SCH (08:25)
[2022-12-26] MEDS: Metoprolol Tartrate 25 MG TAB PO SCH (08:25)
[2022-12-26] MEDS: DULoxetine 30 MG CAP PO SCH (08:25)
[2022-12-26] MEDS: Saccharomyces boulardii 250 MG CAP PO SCH (08:26)
[2022-12-26] MEDS: Thiamine 100 MG TAB PO SCH (08:26)
[2022-12-26] MEDS: Folic Acid 1 MG TAB PO SCH (08:26)
[2022-12-26] MEDS: Senokot S 8.6-50 MG TAB PO SCH (08:26)
[2022-12-26] MEDS: Calcium Carbonate 600 MG + Vit D TAB PO SCH (08:26)
[2022-12-26] MEDS: Lansoprazole 15 MG/5 ML (BATCHED)UDCUP PO SCH (08:27)
[2022-12-26 12:14] VITALS: BP 105/56; TEMP 97.3
== END 2022-12-26 14:59 | disposition home health service (06) | DRG 871 ==
LOC: 2NO 11:05 → EEVIPCON 11:05 → T4-A 12-13 17:50
PROVIDERS: ADMIT Hospitalist; ATTEND Internal Medicine
PROC: 3E03329 Introduction of Other Anti-infective into Peripheral Vein, Percutaneous Approach (ICD-10-PCS; principal; 2022-12-06)
PROC: 8E0ZXY6 Isolation (ICD-10-PCS; 2022-12-06)
PROC: 30233N1 Transfusion of Nonautologous Red Blood Cells into Peripheral Vein, Percutaneous Approach (ICD-10-PCS; 2022-12-06)
PROC: 0T9B70Z Drainage of Bladder with Drainage Device, Via Natural or Artificial Opening (ICD-10-PCS; 2022-12-08)
PROC: 0T2BX0Z Change Drainage Device in Bladder, External Approach (ICD-10-PCS; 2022-12-21)
DX: A41.89 Other specified sepsis (principal); E43 Unspecified severe protein-calorie malnutrition; U07.1 COVID-19; J12.82 Pneumonia due to coronavirus disease 2019; J69.0 Pneumonitis due to inhalation of food and vomit; I47.1 Supraventricular tachycardia; G93.40 Encephalopathy, unspecified; J44.0 Chronic obstructive pulmonary disease with (acute) lower respiratory infection; R65.20 Severe sepsis without septic shock; F03.90 Unspecified dementia, unspecified severity, without behavioral disturbance, psychotic disturbance, mood disturbance, and anxiety; I10 Essential (primary) hypertension; N40.0 Benign prostatic hyperplasia without lower urinary tract symptoms; E78.5 Hyperlipidemia, unspecified; F32.A Depression, unspecified; F41.9 Anxiety disorder, unspecified; F09 Unspecified mental disorder due to known physiological condition; D63.8 Anemia in other chronic diseases classified elsewhere; G89.29 Other chronic pain; E87.6 Hypokalemia; R33.9 Retention of urine, unspecified; E83.42 Hypomagnesemia; I08.3 Combined rheumatic disorders of mitral, aortic and tricuspid valves; Z88.2 Allergy status to sulfonamides; Z88.8 Allergy status to other drugs, medicaments and biological substances; Z79.51 Long term (current) use of inhaled steroids; Z79.82 Long term (current) use of aspirin; Z98.890 Other specified postprocedural states; Z90.49 Acquired absence of other specified parts of digestive tract; Z79.899 Other long term (current) drug therapy; Z68.21 Body mass index [BMI] 21.0-21.9, adult
CPT/HCPCS: 36415; 36430; 70450; 71045; 80048; 80053; 82728; 83735; 84100; 84145; 84443; 85025; 85046; 85379; 85652; 86140; 86850; 86900; 86901; 87040; 93306; C9113; J0878; J1650; J2060; J2543; J3475; J3480; J3490; J7050; J7120; P9016

== ENCOUNTER 2023-02-06 15:55 | Inpatient (IN) | payer MEDICARE ==
[2023-02-06] MEDS ORDERED: Cefepime 2 GM VIAL ONE (22:01)
[2023-02-06 22:08] LABS: Bacteria/HPF 4+ HPF (None Seen); Bilirubin Negative (Negative); Blood, Urine Negative (Negative); CAUTI Indications for Culture Fever or rigors; Clarity Turbid (Clear); Glucose, Urine (Dipstick) Normal (Negative); Ketone, Urine Negative (Negative); Leukocyte 500 Leu/uL (Negative); Nitrite 2+ (Negative); Protein, Urine (Dipstick) 20 mg/dL (Neg-Trace); Specific Gravity, Urine 1.012 (1.002-1.036); Squamous Epithelial None Seen HPF (0-3); Urobilinogen Normal mg/dL (Less than 2); WBC/HPF Greater than 50 HPF (0-3); pH, Urine 7.5 (5.0-9.0)
[2023-02-06 22:10] LABS: Urine Culture Reflex Yes Yes
[2023-02-06 22:37] LABS: ALT (SGPT) 9 U/L (8-55); AST (SGOT) 19 U/L (5-34); Alkaline Phosphatase 107 U/L (40-110); BUN (Urea Nitrogen) 20 mg/dL (8.4-25.7); Bilirubin, Total 0.8 mg/dL (0.2-1.2); Calc. Creatinine Clearance 0 mL/min (70-130); Calcium 7.4 mg/dL (7.8-10.44); Carbon Dioxide 16 mmol/L (23-31); Chloride 106 mmol/L (98-107); Estimated GFR 62; Globulin 3.9 g/dL (2.4-3.5); Glucose 87 mg/dL (83-110); Potassium 4.3 mmol/L (3.5-5.1); Protein, Total 7.9 g/dL (5.8-8.1); Sodium 138 mmol/L (136-145)
[2023-02-06 22:55] LABS: Anion Gap 20 mmol/L (10-20)
[2023-02-06 23:05] LABS: #Eosinphils 0.1 thou/uL (0.0-0.7); #Monocytes 1.1 thou/uL (0.11-0.59); #Neutrophils 10.6 thou/uL (1.40-6.50); %Basophils 0.3 % (0.0-1.0); %Eosinophils 0.4 % (0.0-10.0); %Lymphocytes 13.2 % (21.0-51.0); %Monocytes 8.2 % (0.0-10.0); %Neutrophils 77.5 % (42.0-75.0); Hematocrit 32.7 % (42.0-52.0); Hemoglobin 10.3 g/dL (14.0-18.0); Mean Corpuscular HGB CONC 31.5 g/dL (32.0-36.0); Mean Corpuscular Hemoglobin 27.8 pg (27.0-31.0); Mean Corpuscular Volume 88.1 fl (78.0-98.0); Mean Platelet Volume 10.1 fL (7.4-10.4); Platelet Count 256 10x3/uL (130-400); RBC Distribution Width 15.9 % (11.5-14.5); Red Blood Cell (RBC) Count 3.71 mill/uL (4.70-6.10); White Blood Cell (WBC) Count 13.6 10x3/uL (4.8-10.8)
[2023-02-06] MEDS ORDERED: Acetaminophen 500 MG TAB ONE (23:54)
[2023-02-07] MEDS ORDERED: Acetaminophen 650 MG Suppository PR PRN (00:25)
[2023-02-07] MEDS ORDERED: Sodium Chloride 0.9% 1,000 ML IV SCH (00:30)
[2023-02-07] MEDS ORDERED: Loratadine 10 MG TAB PO PRN (00:45)
[2023-02-07 01:36] LABS: Lactic Acid 1.6 mmol/L (0.5-2.2)
[2023-02-07 01:40] VITALS: BMI 19.5
[2023-02-07] MEDS ORDERED: Vancomycin (BATCH) 1.5 GM 1.5 GM in Premix Bag 1 BAG IVPB SCH (03:00)
[2023-02-07] MEDS ORDERED: Meropenem 1 GM in Sodium Chloride 0.9% 100 ML IVPB SCH (04:00)
[2023-02-07 06:33] LABS: #Eosinphils 0.1 thou/uL (0.0-0.7); #Monocytes 1.5 thou/uL (0.11-0.59); #Neutrophils 9.4 thou/uL (1.40-6.50); %Basophils 0.3 % (0.0-1.0); %Eosinophils 0.6 % (0.0-10.0); %Lymphocytes 12.4 % (21.0-51.0); %Monocytes 11.8 % (0.0-10.0); %Neutrophils 74.2 % (42.0-75.0); Hematocrit 32.1 % (42.0-52.0); Mean Corpuscular HGB CONC 31.2 g/dL (32.0-36.0); Mean Corpuscular Hemoglobin 28.1 pg (27.0-31.0); Mean Corpuscular Volume 90.2 fl (78.0-98.0); Mean Platelet Volume 9.3 fL (7.4-10.4); Platelet Count 178 10x3/uL (130-400); RBC Distribution Width 16.1 % (11.5-14.5); Red Blood Cell (RBC) Count 3.56 mill/uL (4.70-6.10); White Blood Cell (WBC) Count 12.7 10x3/uL (4.8-10.8)
[2023-02-07 07:16] LABS: Anion Gap 11 mmol/L (10-20); BUN (Urea Nitrogen) 20 mg/dL (8.4-25.7); Calc. Creatinine Clearance 52 mL/min (70-130); Calcium 8.8 mg/dL (7.8-10.44); Carbon Dioxide 24 mmol/L (23-31); Chloride 110 mmol/L (98-107); Estimated GFR 64; Glucose 90 mg/dL (83-110); Potassium 3.7 mmol/L (3.5-5.1); Sodium 141 mmol/L (136-145)
[2023-02-07] MEDS: Mometasone 200 MCG/Formoterol 5 MCG 120 PUFF INHALER INH SCH ×2 (08:10→18:42)
[2023-02-07] MEDS ORDERED: FLU VACC QS2023(65UP)/MF59C/PF 60 MCG/0.5 ML SYRINGE IM ONE (09:00)
[2023-02-07] MEDS ORDERED: Cefepime 2 GM in Sodium Chloride 0.9% 100 ML IVPB SCH (10:00)
[2023-02-07] MEDS: DULoxetine 30 MG CAP PO SCH (10:11)
[2023-02-07] MEDS: Thiamine 100 MG TAB PO SCH (10:11)
[2023-02-07] MEDS: Senokot S 8.6-50 MG TAB PO SCH ×2 (10:11→20:16)
[2023-02-07] MEDS: Cyanocobalamin (Vitamin B-12) 1,000 MCG TAB PO SCH (10:11)
[2023-02-07] MEDS: Folic Acid 1 MG TAB PO SCH (10:11)
[2023-02-07] MEDS: pyridOXINE 50 MG (B6) TAB PO SCH (10:11)
[2023-02-07] MEDS: Ferrous Gluconate 324 MG TAB PO SCH (10:15)
[2023-02-07] MEDS: Meropenem 1 GM in Sodium Chloride 0.9% 100 ML IVPB SCH ×2 (12:13→20:16)
[2023-02-07] MEDS ORDERED: Vancomycin 1 GM in Premix Bag 1 BAG IVPB SCH (15:00)
[2023-02-07] MEDS: Donepezil HCl 5 MG TAB PO SCH (20:16)
[2023-02-07] MEDS: traZODone HCl 50 MG TAB PO SCH (20:16)
[2023-02-07] MEDS ORDERED: Cefepime 1 GM in Sodium Chloride 0.9% 100 ML IVPB SCH (22:00)
[2023-02-08] MEDS: Meropenem 1 GM in Sodium Chloride 0.9% 100 ML IVPB SCH ×3 (04:44→20:58)
[2023-02-08] MEDS: Mometasone 200 MCG/Formoterol 5 MCG 120 PUFF INHALER INH SCH ×2 (07:15→18:59)
[2023-02-08] MEDS: pyridOXINE 50 MG (B6) TAB PO SCH (09:05)
[2023-02-08] MEDS: Cyanocobalamin (Vitamin B-12) 1,000 MCG TAB PO SCH (09:05)
[2023-02-08] MEDS: Ferrous Gluconate 324 MG TAB PO SCH (09:05)
[2023-02-08] MEDS: Folic Acid 1 MG TAB PO SCH (09:05)
[2023-02-08] MEDS: Senokot S 8.6-50 MG TAB PO SCH ×2 (09:06→20:59)
[2023-02-08] MEDS: Thiamine 100 MG TAB PO SCH (09:06)
[2023-02-08] MEDS: DULoxetine 30 MG CAP PO SCH (09:06)
[2023-02-08] MEDS: Donepezil HCl 5 MG TAB PO SCH (20:59)
[2023-02-08] MEDS: traZODone HCl 50 MG TAB PO SCH (20:59)
[2023-02-09] MEDS: Meropenem 1 GM in Sodium Chloride 0.9% 100 ML IVPB SCH ×3 (04:25→20:44)
[2023-02-09 06:16] LABS: #Eosinphils 0.1 thou/uL (0.0-0.7); #Monocytes 0.6 thou/uL (0.11-0.59); #Neutrophils 4.3 thou/uL (1.40-6.50); %Basophils 0.3 % (0.0-1.0); %Eosinophils 2.1 % (0.0-10.0); %Lymphocytes 25.5 % (21.0-51.0); %Monocytes 9.4 % (0.0-10.0); %Neutrophils 62.6 % (42.0-75.0); Hemoglobin 8.3 g/dL (14.0-18.0); Mean Corpuscular HGB CONC 31.9 g/dL (32.0-36.0); Mean Corpuscular Hemoglobin 28.3 pg (27.0-31.0); Mean Corpuscular Volume 88.7 fl (78.0-98.0); Mean Platelet Volume 9.7 fL (7.4-10.4); Platelet Count 152 10x3/uL (130-400); RBC Distribution Width 15.9 % (11.5-14.5); Red Blood Cell (RBC) Count 2.93 mill/uL (4.70-6.10); White Blood Cell (WBC) Count 6.8 10x3/uL (4.8-10.8)
[2023-02-09 06:42] LABS: ALT (SGPT) 8 U/L (8-55); AST (SGOT) 13 U/L (5-34); Alkaline Phosphatase 62 U/L (40-110); Anion Gap 12 mmol/L (10-20); BUN (Urea Nitrogen) 18 mg/dL (8.4-25.7); Bilirubin, Total 0.4 mg/dL (0.2-1.2); Calc. Creatinine Clearance 62 mL/min (70-130); Calcium 8.6 mg/dL (7.8-10.44); Carbon Dioxide 24 mmol/L (23-31); Chloride 106 mmol/L (98-107); Estimated GFR 80; Glucose 89 mg/dL (83-110); Potassium 3.6 mmol/L (3.5-5.1); Sodium 138 mmol/L (136-145)
[2023-02-09] MEDS: Mometasone 200 MCG/Formoterol 5 MCG 120 PUFF INHALER INH SCH ×2 (06:45→18:51)
[2023-02-09] MEDS: pyridOXINE 50 MG (B6) TAB PO SCH (08:35)
[2023-02-09] MEDS: Folic Acid 1 MG TAB PO SCH (08:35)
[2023-02-09] MEDS: Ferrous Gluconate 324 MG TAB PO SCH (08:35)
[2023-02-09] MEDS: DULoxetine 30 MG CAP PO SCH (08:35)
[2023-02-09] MEDS: Cyanocobalamin (Vitamin B-12) 1,000 MCG TAB PO SCH (08:35)
[2023-02-09] MEDS: Thiamine 100 MG TAB PO SCH (08:35)
[2023-02-09] MEDS: Senokot S 8.6-50 MG TAB PO SCH ×2 (08:36→20:45)
[2023-02-09] MEDS: Tamsulosin HCl 0.4 MG CAP PO SCH (20:44)
[2023-02-09] MEDS: traZODone HCl 50 MG TAB PO SCH (20:44)
[2023-02-09] MEDS: Acetaminophen 325 MG TAB PO PRN (20:45)
[2023-02-09] MEDS: Donepezil HCl 5 MG TAB PO SCH (20:51)
[2023-02-10] MEDS: Meropenem 1 GM in Sodium Chloride 0.9% 100 ML IVPB SCH ×3 (03:39→20:43)
[2023-02-10] MEDS: Mometasone 200 MCG/Formoterol 5 MCG 120 PUFF INHALER INH SCH ×2 (06:53→19:03)
[2023-02-10] MEDS: Cyanocobalamin (Vitamin B-12) 1,000 MCG TAB PO SCH (08:55)
[2023-02-10] MEDS: Folic Acid 1 MG TAB PO SCH (08:55)
[2023-02-10] MEDS: Senokot S 8.6-50 MG TAB PO SCH ×2 (08:55→20:45)
[2023-02-10] MEDS: pyridOXINE 50 MG (B6) TAB PO SCH (08:56)
[2023-02-10] MEDS: Ferrous Gluconate 324 MG TAB PO SCH (08:56)
[2023-02-10] MEDS: DULoxetine 30 MG CAP PO SCH (08:56)
[2023-02-10] MEDS: Thiamine 100 MG TAB PO SCH (11:55)
[2023-02-10] MEDS: traZODone HCl 50 MG TAB PO SCH (20:44)
[2023-02-10] MEDS: Acetaminophen 325 MG TAB PO PRN (20:45)
[2023-02-10] MEDS: Donepezil HCl 5 MG TAB PO SCH (20:45)
[2023-02-10] MEDS: Tamsulosin HCl 0.4 MG CAP PO SCH (20:45)
[2023-02-10] MEDS: Melatonin 3 MG TAB PO PRN (22:50)
[2023-02-11] MEDS: Meropenem 1 GM in Sodium Chloride 0.9% 100 ML IVPB SCH ×3 (03:19→20:24)
[2023-02-11] MEDS: Mometasone 200 MCG/Formoterol 5 MCG 120 PUFF INHALER INH SCH ×2 (06:59→18:29)
[2023-02-11] MEDS: Senokot S 8.6-50 MG TAB PO SCH ×2 (09:11→20:24)
[2023-02-11] MEDS: Cyanocobalamin (Vitamin B-12) 1,000 MCG TAB PO SCH (09:11)
[2023-02-11] MEDS: pyridOXINE 50 MG (B6) TAB PO SCH (09:12)
[2023-02-11] MEDS: Thiamine 100 MG TAB PO SCH (09:12)
[2023-02-11] MEDS: Ferrous Gluconate 324 MG TAB PO SCH (09:12)
[2023-02-11] MEDS: DULoxetine 30 MG CAP PO SCH (09:12)
[2023-02-11] MEDS: Folic Acid 1 MG TAB PO SCH (09:12)
[2023-02-11] MEDS ORDERED: Sodium Chloride 0.9% 100 ML ONE (19:34)
[2023-02-11] MEDS: traZODone HCl 50 MG TAB PO SCH (20:23)
[2023-02-11] MEDS: Acetaminophen 325 MG TAB PO PRN (20:23)
[2023-02-11] MEDS: Melatonin 3 MG TAB PO PRN (20:23)
[2023-02-11] MEDS: Tamsulosin HCl 0.4 MG CAP PO SCH (20:23)
[2023-02-11] MEDS: Donepezil HCl 5 MG TAB PO SCH (20:24)
[2023-02-12] MEDS: Meropenem 1 GM in Sodium Chloride 0.9% 100 ML IVPB SCH ×2 (03:37→12:21)
[2023-02-12] MEDS: Mometasone 200 MCG/Formoterol 5 MCG 120 PUFF INHALER INH SCH ×2 (06:32→18:54)
[2023-02-12] MEDS: pyridOXINE 50 MG (B6) TAB PO SCH (08:44)
[2023-02-12] MEDS: DULoxetine 30 MG CAP PO SCH (08:44)
[2023-02-12] MEDS: Thiamine 100 MG TAB PO SCH (08:44)
[2023-02-12] MEDS: Cyanocobalamin (Vitamin B-12) 1,000 MCG TAB PO SCH (08:44)
[2023-02-12] MEDS: Folic Acid 1 MG TAB PO SCH (08:44)
[2023-02-12] MEDS: Senokot S 8.6-50 MG TAB PO SCH ×2 (08:44→20:23)
[2023-02-12] MEDS: Ferrous Gluconate 324 MG TAB PO SCH (08:44)
[2023-02-12] MEDS: Acetaminophen 325 MG TAB PO PRN ×2 (11:03→20:22)
[2023-02-12] MEDS ORDERED: Sodium Chloride 0.9% 100 ML ONE (12:19)
[2023-02-12] MEDS: Donepezil HCl 5 MG TAB PO SCH (20:22)
[2023-02-12] MEDS: Tamsulosin HCl 0.4 MG CAP PO SCH (20:22)
[2023-02-12] MEDS: risperiDONE 1 MG TAB PO SCH (20:22)
[2023-02-12] MEDS: Melatonin 3 MG TAB PO PRN (20:22)
[2023-02-12] MEDS: traZODone HCl 50 MG TAB PO SCH (20:22)
[2023-02-12] MEDS: Meropenem 2 GM, Admixture Fee 1 EACH in Sodium Chloride 0.9% 100 ML IVPB SCH (20:31)
[2023-02-13] MEDS: Meropenem 2 GM, Admixture Fee 1 EACH in Sodium Chloride 0.9% 100 ML IVPB SCH ×3 (03:57→21:26)
[2023-02-13] MEDS: Mometasone 200 MCG/Formoterol 5 MCG 120 PUFF INHALER INH SCH ×2 (07:00→18:53)
[2023-02-13] MEDS: Senokot S 8.6-50 MG TAB PO SCH ×2 (08:16→19:39)
[2023-02-13] MEDS: Thiamine 100 MG TAB PO SCH (08:16)
[2023-02-13] MEDS: DULoxetine 30 MG CAP PO SCH (08:16)
[2023-02-13] MEDS: Folic Acid 1 MG TAB PO SCH (08:17)
[2023-02-13] MEDS: Cyanocobalamin (Vitamin B-12) 1,000 MCG TAB PO SCH (08:17)
[2023-02-13] MEDS: pyridOXINE 50 MG (B6) TAB PO SCH (08:17)
[2023-02-13] MEDS: Ferrous Gluconate 324 MG TAB PO SCH (08:17)
[2023-02-13] MEDS: Tamsulosin HCl 0.4 MG CAP PO SCH (19:39)
[2023-02-13] MEDS: risperiDONE 1 MG TAB PO SCH (19:39)
[2023-02-13] MEDS: Acetaminophen 325 MG TAB PO PRN (19:39)
[2023-02-13] MEDS: QUEtiapine 25 MG TAB PO SCH (19:39)
[2023-02-13] MEDS: Donepezil HCl 5 MG TAB PO SCH (19:39)
[2023-02-14] MEDS: Meropenem 2 GM, Admixture Fee 1 EACH in Sodium Chloride 0.9% 100 ML IVPB SCH ×3 (03:31→20:04)
[2023-02-14] MEDS: Mometasone 200 MCG/Formoterol 5 MCG 120 PUFF INHALER INH SCH ×2 (07:56→19:10)
[2023-02-14] MEDS: Folic Acid 1 MG TAB PO SCH (08:45)
[2023-02-14] MEDS: Ferrous Gluconate 324 MG TAB PO SCH (08:45)
[2023-02-14] MEDS: Cyanocobalamin (Vitamin B-12) 1,000 MCG TAB PO SCH (08:45)
[2023-02-14] MEDS: Senokot S 8.6-50 MG TAB PO SCH ×2 (08:45→20:04)
[2023-02-14] MEDS: pyridOXINE 50 MG (B6) TAB PO SCH (08:45)
[2023-02-14] MEDS: QUEtiapine 25 MG TAB PO SCH ×2 (08:45→20:04)
[2023-02-14] MEDS: DULoxetine 30 MG CAP PO SCH (08:45)
[2023-02-14] MEDS: Thiamine 100 MG TAB PO SCH (08:45)
[2023-02-14] MEDS: Acetaminophen 325 MG TAB PO PRN (15:05)
[2023-02-14] MEDS: Donepezil HCl 5 MG TAB PO SCH (20:04)
[2023-02-14] MEDS: Tamsulosin HCl 0.4 MG CAP PO SCH (20:04)
[2023-02-14] MEDS: risperiDONE 1 MG TAB PO SCH (20:04)
[2023-02-15] MEDS: Meropenem 2 GM, Admixture Fee 1 EACH in Sodium Chloride 0.9% 100 ML IVPB SCH ×3 (03:29→19:38)
[2023-02-15] MEDS: Acetaminophen 325 MG TAB PO PRN ×2 (06:30→19:38)
[2023-02-15] MEDS: Mometasone 200 MCG/Formoterol 5 MCG 120 PUFF INHALER INH SCH ×2 (08:12→18:46)
[2023-02-15] MEDS: Folic Acid 1 MG TAB PO SCH (10:37)
[2023-02-15] MEDS: Cyanocobalamin (Vitamin B-12) 1,000 MCG TAB PO SCH (10:37)
[2023-02-15] MEDS: Ferrous Gluconate 324 MG TAB PO SCH (10:38)
[2023-02-15] MEDS: Thiamine 100 MG TAB PO SCH (10:38)
[2023-02-15] MEDS: Senokot S 8.6-50 MG TAB PO SCH ×2 (10:38→19:36)
[2023-02-15] MEDS: DULoxetine 30 MG CAP PO SCH (10:38)
[2023-02-15] MEDS: QUEtiapine 25 MG TAB PO SCH ×2 (10:38→19:36)
[2023-02-15] MEDS: pyridOXINE 50 MG (B6) TAB PO SCH (10:38)
[2023-02-15] MEDS: Tamsulosin HCl 0.4 MG CAP PO SCH (19:36)
[2023-02-15] MEDS: Donepezil HCl 5 MG TAB PO SCH (19:36)
[2023-02-15] MEDS ORDERED: risperiDONE 1 MG TAB PO SCH (21:00)
[2023-02-15 23:55] VITALS: TEMP 97.5
[2023-02-16] MEDS ORDERED: Ertapenem 1 GM in Sodium Chloride 0.9% 100 ML IVPB SCH (04:00)
[2023-02-16] MEDS: Mometasone 200 MCG/Formoterol 5 MCG 120 PUFF INHALER INH SCH ×2 (07:59→19:27)
[2023-02-16] MEDS: Cyanocobalamin (Vitamin B-12) 1,000 MCG TAB PO SCH (10:21)
[2023-02-16] MEDS: Ferrous Gluconate 324 MG TAB PO SCH (10:21)
[2023-02-16] MEDS: DULoxetine 30 MG CAP PO SCH (10:21)
[2023-02-16] MEDS: Thiamine 100 MG TAB PO SCH (10:22)
[2023-02-16] MEDS: pyridOXINE 50 MG (B6) TAB PO SCH (10:22)
[2023-02-16] MEDS: Senokot S 8.6-50 MG TAB PO SCH (10:22)
[2023-02-16] MEDS: QUEtiapine 25 MG TAB PO SCH (10:22)
[2023-02-16] MEDS: Folic Acid 1 MG TAB PO SCH (10:22)
[2023-02-16 17:28] VITALS: BP 121/67
== END 2023-02-16 20:00 | DRG 698 ==
LOC: ERS 15:55 → T4-B 02-07 00:16 → OBSVTOIN 02-07 03:04 → T4-B 02-10 10:15
PROVIDERS: ADMIT Internal Medicine; ATTEND Internal Medicine
PROC: 3E03329 Introduction of Other Anti-infective into Peripheral Vein, Percutaneous Approach (ICD-10-PCS; 2023-02-07)
PROC: 02HV33Z Insertion of Infusion Device into Superior Vena Cava, Percutaneous Approach (ICD-10-PCS; principal; 2023-02-13)
PROC: B5181ZA Fluoroscopy of Superior Vena Cava using Low Osmolar Contrast, Guidance (ICD-10-PCS; 2023-02-13)
PROC: B548ZZA Ultrasonography of Superior Vena Cava, Guidance (ICD-10-PCS; 2023-02-13)
PROC: 02HV33Z Insertion of Infusion Device into Superior Vena Cava, Percutaneous Approach (ICD-10-PCS; 2023-02-16)
PROC: B5181ZA Fluoroscopy of Superior Vena Cava using Low Osmolar Contrast, Guidance (ICD-10-PCS; 2023-02-16)
PROC: B548ZZA Ultrasonography of Superior Vena Cava, Guidance (ICD-10-PCS; 2023-02-16)
DX: T83.511A Infection and inflammatory reaction due to indwelling urethral catheter, initial encounter (principal); A41.50 Gram-negative sepsis, unspecified; Z16.24 Resistance to multiple antibiotics; N30.00 Acute cystitis without hematuria; F03.B18 Unspecified dementia, moderate, with other behavioral disturbance; R64 Cachexia; Z68.1 Body mass index [BMI] 19.9 or less, adult; I25.10 Atherosclerotic heart disease of native coronary artery without angina pectoris; I10 Essential (primary) hypertension; E78.5 Hyperlipidemia, unspecified; J44.9 Chronic obstructive pulmonary disease, unspecified; K21.9 Gastro-esophageal reflux disease without esophagitis; F32.A Depression, unspecified; F41.9 Anxiety disorder, unspecified; D64.9 Anemia, unspecified; N40.1 Benign prostatic hyperplasia with lower urinary tract symptoms; R33.8 Other retention of urine; Z88.2 Allergy status to sulfonamides; Z88.8 Allergy status to other drugs, medicaments and biological substances; Z88.1 Allergy status to other antibiotic agents; Z79.51 Long term (current) use of inhaled steroids; Z79.899 Other long term (current) drug therapy; Z79.82 Long term (current) use of aspirin; Z90.49 Acquired absence of other specified parts of digestive tract; Z98.890 Other specified postprocedural states; Z87.891 Personal history of nicotine dependence; Z91.199 Patient's noncompliance with other medical treatment and regimen due to unspecified reason
CPT/HCPCS: 36415; 36569; 51702; 71045; 80048; 80053; 81001; 83605; 85025; 87040; 87077; 87086; 87149; 87186; 90471; 90694; 93005; 93010; 93306; 96361; 96365; C1751; G0008; G0378; J0692; J1335; J2185; J3490; J7050

== ENCOUNTER 2023-02-26 11:23 | Emergency (ER) | payer MEDICARE ==
[2023-02-26 13:10] LABS: #Eosinphils 0.2 thou/uL (0.0-0.7); #Monocytes 0.5 thou/uL (0.11-0.59); %Basophils 0.8 % (0.0-1.0); %Eosinophils 3.7 % (0.0-10.0); %Lymphocytes 43.8 % (21.0-51.0); %Monocytes 10.4 % (0.0-10.0); %Neutrophils 40.9 % (42.0-75.0); Hemoglobin 10.9 g/dL (14.0-18.0); Mean Corpuscular HGB CONC 30.3 g/dL (32.0-36.0); Mean Corpuscular Volume 89.3 fl (78.0-98.0); Mean Platelet Volume 9.6 fL (7.4-10.4); Platelet Count 186 10x3/uL (130-400); RBC Distribution Width 15.5 % (11.5-14.5); Red Blood Cell (RBC) Count 4.03 mill/uL (4.70-6.10); White Blood Cell (WBC) Count 4.9 10x3/uL (4.8-10.8)
[2023-02-26 13:26] LABS: ALT (SGPT) 12 U/L (8-55); AST (SGOT) 15 U/L (5-34); Albumin 3.5 g/dL (3.4-4.8); Alkaline Phosphatase 81 U/L (40-110); Anion Gap 14 mmol/L (10-20); BUN (Urea Nitrogen) 18 mg/dL (8.4-25.7); Bilirubin, Total 0.3 mg/dL (0.2-1.2); Calc. Creatinine Clearance 0 mL/min (70-130); Calcium 8.9 mg/dL (7.8-10.44); Carbon Dioxide 24 mmol/L (23-31); Chloride 105 mmol/L (98-107); Estimated GFR 80; Globulin 3.2 g/dL (2.4-3.5); Glucose 82 mg/dL (83-110); Potassium 4.1 mmol/L (3.5-5.1); Protein, Total 6.7 g/dL (5.8-8.1); Sodium 139 mmol/L (136-145)
== END 2023-02-26 20:00 | disposition home or self-care (01) ==
LOC: ERS 11:23
DX: T82.524A Displacement of infusion catheter, initial encounter (principal); R00.1 Bradycardia, unspecified; R33.9 Retention of urine, unspecified; E78.5 Hyperlipidemia, unspecified; I10 Essential (primary) hypertension; J44.9 Chronic obstructive pulmonary disease, unspecified; Z87.891 Personal history of nicotine dependence; Z79.899 Other long term (current) drug therapy; Z79.82 Long term (current) use of aspirin
CPT/HCPCS: 36415; 51702; 80053; 83605; 85025; 87040; 87086; 93005; 96360; 96361

== ENCOUNTER 2023-04-17 10:13 | Inpatient (IN) | payer MEDICARE ==
[2023-04-17 10:42] LABS: Hematocrit 26.3 % (42.0-52.0); Hemoglobin 8.5 g/dL (14.0-18.0); Manual Diff?? YES; Mean Corpuscular HGB CONC 32.3 g/dL (32.0-36.0); Mean Corpuscular Hemoglobin 26.9 pg (27.0-31.0); Mean Corpuscular Volume 83.2 fl (78.0-98.0); Mean Platelet Volume 11.1 fL (7.4-10.4); Platelet Count 114 10x3/uL (130-400); RBC Distribution Width 17.6 % (11.5-14.5); Red Blood Cell (RBC) Count 3.16 mill/uL (4.70-6.10); White Blood Cell (WBC) Count 8.5 10x3/uL (4.8-10.8)
[2023-04-17 10:44] LABS: Delete Auto Diff?? YES
[2023-04-17 10:55] LABS: PTT 49.5 sec (22.9-36.1); Prothrombin Time 23.1 sec (12.0-14.7)
[2023-04-17 10:58] LABS: ALT (SGPT) 8 U/L (8-55); AST (SGOT) 13 U/L (5-34); Alkaline Phosphatase 72 U/L (40-110); Anion Gap 17 mmol/L (10-20); BUN (Urea Nitrogen) 123 mg/dL (8.4-25.7); Bilirubin, Total 1.5 mg/dL (0.2-1.2); Calc. Creatinine Clearance 0 mL/min (70-130); Calcium 8.9 mg/dL (7.8-10.44); Carbon Dioxide 18 mmol/L (23-31); Chloride 107 mmol/L (98-107); Estimated GFR 8; Glucose 124 mg/dL (83-110); Potassium 4.8 mmol/L (3.5-5.1); Sodium 137 mmol/L (136-145)
[2023-04-17] MEDS ORDERED: Iopamidol-370 76% 500 ML MDV (1 ML CHARGE) ONE (10:59)
[2023-04-17 11:08] LABS: Anisocytosis SLIGHT = 6-15 cells HPF (0-5); Band 13 % (5-11); CellaVision Operator ID lab.dlt; Eosinophils 3 % (0-10); Hypochromia SLIGHT = 6-15 cells HPF (0-5); Lymphocytes 6 % (21-51); Macrocytosis SLIGHT = 6-15 cells HPF (0-5); Monocytes 4 % (0-10); Neutrophil 74 % (42-75); Platelet Adequacy Comment Platelets Decreased; Poikilocytosis SLIGHT = 6-15 cells HPF (0-5); Polychromasia SLIGHT = 2-3 cells HPF (0-2); Total Cell Count 99
[2023-04-17] MEDS ORDERED: Ondansetron PF 4 MG/2 ML Vial ONE (11:19)
[2023-04-17] MEDS ORDERED: Senokot S 8.6-50 MG TAB PO PRN (13:32)
[2023-04-17] MEDS ORDERED: Bisacodyl 10 MG SUPP PR SCH (13:45)
[2023-04-17] MEDS ORDERED: Sodium Bicarbonate 50 MEQ in Sodium Chloride 0.45% 1,000 ML IV SCH (14:00)
[2023-04-17] MEDS: Sodium Bicarbonate 100 MEQ in Dextrose 5% in Water 1,000 ML IV SCH ×2 (14:32→22:45)
[2023-04-17 15:09] LABS: Bilirubin Negative (Negative); Blood, Urine 3+ (Negative); CAUTI Indications for Culture Alt mental st,lethar; Clarity Turbid (Clear); Glucose, Urine (Dipstick) Normal (Negative); Ketone, Urine Negative (Negative); Leukocyte 500 Leu/uL (Negative); Nitrite 2+ (Negative); Protein, Urine (Dipstick) 70 mg/dL (Neg-Trace); RBC/HPF 21-50 HPF (0-3); Squamous Epithelial 0-3 HPF (0-3); Urobilinogen Normal mg/dL (Less than 2); WBC/HPF Greater than 50 HPF (0-3)
[2023-04-17 15:10] LABS: Bacteria/HPF 1+ HPF (None Seen)
[2023-04-17 15:12] LABS: Lactic Acid 1.7 mmol/L (0.5-2.2)
[2023-04-17 15:14] LABS: Urine Culture Reflex Yes Yes
[2023-04-17] MEDS ORDERED: Heparin 5,000 UNITS/ML VIAL ONE (16:02)
[2023-04-17] MEDS: Heparin 5,000 UNITS/ML VIAL SC SCH ×2 (16:37→21:03)
[2023-04-17] MEDS ORDERED: Famotidine 20 MG TAB PO SCH (21:00)
[2023-04-17] MEDS: Famotidine 20 MG TAB PO SCH (21:03)
[2023-04-18] MEDS: Acetaminophen 325 MG TAB PO PRN ×2 (01:15→20:43)
[2023-04-18] MEDS ORDERED: Lactated Ringer's 250 ML IV SCH (04:30)
[2023-04-18 04:52] LABS: Hematocrit 23.4 % (42.0-52.0); Hemoglobin 7.7 g/dL (14.0-18.0); Manual Diff?? YES; Mean Corpuscular HGB CONC 32.9 g/dL (32.0-36.0); Mean Corpuscular Hemoglobin 27.2 pg (27.0-31.0); Mean Corpuscular Volume 82.7 fl (78.0-98.0); Mean Platelet Volume 11.5 fL (7.4-10.4); Platelet Count 107 10x3/uL (130-400); RBC Distribution Width 17.7 % (11.5-14.5); Red Blood Cell (RBC) Count 2.83 mill/uL (4.70-6.10)
[2023-04-18 05:37] LABS: Delete Auto Diff?? YES
[2023-04-18] MEDS: Sodium Bicarbonate 100 MEQ in Dextrose 5% in Water 1,000 ML IV SCH (06:53)
[2023-04-18 07:10] LABS: Band 10 % (5-11); Burr Cells SLIGHT = 2-5 cells HPF (0-1); CellaVision Operator ID LAB.GE; Eosinophils 2 % (0-10); Lymphocytes 15 % (21-51); Monocytes 12 % (0-10); Neutrophil 61 % (42-75); Platelet Adequacy Comment Platelets Decreased; Polychromasia SLIGHT = 2-3 cells HPF (0-2); Total Cell Count 102
[2023-04-18 07:51] LABS: Anion Gap 15 mmol/L (10-20); BUN (Urea Nitrogen) 106 mg/dL (8.4-25.7); Calc. Creatinine Clearance 11 mL/min (70-130); Calcium 8.3 mg/dL (7.8-10.44); Carbon Dioxide 21 mmol/L (23-31); Chloride 107 mmol/L (98-107); Estimated GFR 10; Glucose 130 mg/dL (83-110); Potassium 3.7 mmol/L (3.5-5.1); Sodium 139 mmol/L (136-145)
[2023-04-18] MEDS: Bisacodyl 10 MG SUPP PR SCH (08:49)
[2023-04-18] MEDS: Heparin 5,000 UNITS/ML VIAL SC SCH ×3 (08:49→20:43)
[2023-04-18] MEDS ORDERED: Meropenem 1 GM in Sodium Chloride 0.9% 100 ML IVPB SCH (10:00)
[2023-04-18 10:25] LABS: Hemoglobin 9.4 g/dL (14.0-18.0)
[2023-04-18] MEDS ORDERED: Meropenem 500 MG in Sodium Chloride 0.9% 100 ML IVPB SCH (14:00)
[2023-04-18] MEDS: Meropenem 500 MG in Sodium Chloride 0.9% 100 ML IVPB SCH (18:22)
[2023-04-18] MEDS: Famotidine 20 MG TAB PO SCH (20:43)
[2023-04-19] MEDS: Acetaminophen 325 MG TAB PO PRN ×2 (00:19→08:02)
[2023-04-19] MEDS: Melatonin 3 MG TAB PO PRN (01:10)
[2023-04-19] MEDS: Sodium Bicarbonate 100 MEQ in Dextrose 5% in Water 1,000 ML IV SCH (05:06)
[2023-04-19] MEDS: Meropenem 500 MG in Sodium Chloride 0.9% 100 ML IVPB SCH ×2 (05:12→17:03)
[2023-04-19 06:18] LABS: #Eosinphils 0.2 thou/uL (0.0-0.7); #Monocytes 0.7 thou/uL (0.11-0.59); #Neutrophils 2.8 thou/uL (1.40-6.50); %Basophils 0.4 % (0.0-1.0); %Eosinophils 3.6 % (0.0-10.0); %Lymphocytes 24.8 % (21.0-51.0); %Monocytes 13.1 % (0.0-10.0); %Neutrophils 57.1 % (42.0-75.0); Hematocrit 23.5 % (42.0-52.0); Hemoglobin 7.5 g/dL (14.0-18.0); Mean Corpuscular HGB CONC 31.9 g/dL (32.0-36.0); Mean Corpuscular Hemoglobin 26.9 pg (27.0-31.0); Mean Corpuscular Volume 84.2 fl (78.0-98.0); Mean Platelet Volume 10.7 fL (7.4-10.4); RBC Distribution Width 17.7 % (11.5-14.5); Red Blood Cell (RBC) Count 2.79 mill/uL (4.70-6.10)
[2023-04-19 06:49] LABS: Platelet Count 111 10x3/uL (130-400)
[2023-04-19 07:06] LABS: Anion Gap 12 mmol/L (10-20); BUN (Urea Nitrogen) 82 mg/dL (8.4-25.7); Calc. Creatinine Clearance 15 mL/min (70-130); Calcium 8.3 mg/dL (7.8-10.44); Carbon Dioxide 28 mmol/L (23-31); Chloride 103 mmol/L (98-107); Estimated GFR 14; Glucose 93 mg/dL (83-110); Iron 11 ug/dL (65-175); Iron Binding Capacity, Total 158 mcg/dL (261-462); Potassium 3.4 mmol/L (3.5-5.1); Sodium 140 mmol/L (136-145)
[2023-04-19] MEDS: Heparin 5,000 UNITS/ML VIAL SC SCH ×3 (07:53→20:08)
[2023-04-19] MEDS: Bisacodyl 10 MG SUPP PR SCH (07:54)
[2023-04-19] MEDS: EPOETIN ALFA-EPBX (ESRD) 10,000 UNITS/ML VIAL SC SCH (10:43)
[2023-04-19] MEDS: Lactated Ringer's 1,000 ML IV SCH ×2 (10:43→16:08)
[2023-04-19] MEDS: Iron, Sodium Ferric Gluconate 250 MG in Sodium Chloride 0.9% 250 ML 250 ML IVPB SCH (10:44)
[2023-04-19] MEDS: Famotidine 20 MG TAB PO SCH (20:08)
[2023-04-20] MEDS: Lactated Ringer's 1,000 ML IV SCH ×3 (00:58→20:31)
[2023-04-20] MEDS: Meropenem 500 MG in Sodium Chloride 0.9% 100 ML IVPB SCH ×2 (05:03→17:54)
[2023-04-20 06:29] LABS: #Eosinphils 0.2 thou/uL (0.0-0.7); #Monocytes 0.8 thou/uL (0.11-0.59); #Neutrophils 4.3 thou/uL (1.40-6.50); %Basophils 0.3 % (0.0-1.0); %Eosinophils 2.7 % (0.0-10.0); %Lymphocytes 22.8 % (21.0-51.0); %Monocytes 11.9 % (0.0-10.0); %Neutrophils 61.7 % (42.0-75.0); Hematocrit 25.5 % (42.0-52.0); Mean Corpuscular HGB CONC 31.4 g/dL (32.0-36.0); Mean Corpuscular Hemoglobin 27.2 pg (27.0-31.0); Mean Corpuscular Volume 86.7 fl (78.0-98.0); Mean Platelet Volume 10.1 fL (7.4-10.4); Platelet Count 140 10x3/uL (130-400); RBC Distribution Width 17.8 % (11.5-14.5); Red Blood Cell (RBC) Count 2.94 mill/uL (4.70-6.10)
[2023-04-20 07:08] LABS: Anion Gap 12 mmol/L (10-20); BUN (Urea Nitrogen) 63 mg/dL (8.4-25.7); Calc. Creatinine Clearance 19 mL/min (70-130); Calcium 8.7 mg/dL (7.8-10.44); Carbon Dioxide 27 mmol/L (23-31); Chloride 106 mmol/L (98-107); Estimated GFR 19; Glucose 95 mg/dL (83-110); Potassium 3.5 mmol/L (3.5-5.1); Sodium 141 mmol/L (136-145)
[2023-04-20 07:50] LABS: Albumin 2.9 g/dL (3.4-4.8); Magnesium 1.5 mg/dL (1.6-2.6); Phosphorus 3.1 mg/dL (2.3-4.7)
[2023-04-20] MEDS ORDERED: Magnesium Sulfate 3 GM in Sodium Chloride 0.9% 100 ML IVPB SCH (08:00)
[2023-04-20] MEDS ORDERED: DULoxetine 30 MG CAP PO SCH (09:00)
[2023-04-20] MEDS: QUEtiapine 25 MG TAB PO SCH ×3 (10:33→20:31)
[2023-04-20] MEDS: Aspirin 81 mg Enteric Coated Tablet PO SCH ×2 (10:33→11:33)
[2023-04-20] MEDS: Apixaban 5 MG TAB PO SCH ×3 (10:33→20:31)
[2023-04-20] MEDS: Bisacodyl 10 MG SUPP PR SCH ×2 (10:36→11:34)
[2023-04-20] MEDS: Iron, Sodium Ferric Gluconate 250 MG in Sodium Chloride 0.9% 250 ML 250 ML IVPB SCH (13:16)
[2023-04-20] MEDS: Mometasone 200 MCG/Formoterol 5 MCG 120 PUFF INHALER INH SCH (18:56)
[2023-04-20] MEDS: Famotidine 20 MG TAB PO SCH (20:31)
[2023-04-20] MEDS: Donepezil HCl 5 MG TAB PO SCH (20:31)
[2023-04-21] MEDS: Lactated Ringer's 1,000 ML IV SCH ×3 (00:12→17:17)
[2023-04-21] MEDS: Meropenem 500 MG in Sodium Chloride 0.9% 100 ML IVPB SCH ×2 (04:50→18:08)
[2023-04-21] MEDS: Mometasone 200 MCG/Formoterol 5 MCG 120 PUFF INHALER INH SCH ×2 (07:18→18:56)
[2023-04-21 08:51] LABS: Anion Gap 14 mmol/L (10-20); BUN (Urea Nitrogen) 50 mg/dL (8.4-25.7); Calc. Creatinine Clearance 25 mL/min (70-130); Calcium 8.6 mg/dL (7.8-10.44); Carbon Dioxide 23 mmol/L (23-31); Chloride 107 mmol/L (98-107); Estimated GFR 26; Glucose 95 mg/dL (83-110); Magnesium 1.9 mg/dL (1.6-2.6); Potassium 3.6 mmol/L (3.5-5.1); Sodium 140 mmol/L (136-145)
[2023-04-21] MEDS: Iron, Sodium Ferric Gluconate 250 MG in Sodium Chloride 0.9% 250 ML 250 ML IVPB SCH (10:52)
[2023-04-21] MEDS: Aspirin 81 mg Enteric Coated Tablet PO SCH (10:53)
[2023-04-21] MEDS: Bisacodyl 10 MG SUPP PR SCH (10:53)
[2023-04-21] MEDS: Apixaban 5 MG TAB PO SCH ×2 (10:54→20:01)
[2023-04-21] MEDS: QUEtiapine 25 MG TAB PO SCH ×2 (10:54→20:01)
[2023-04-21 12:56] LABS: #Eosinphils 0.3 thou/uL (0.0-0.7); #Monocytes 0.7 thou/uL (0.11-0.59); #Neutrophils 5.9 thou/uL (1.40-6.50); %Basophils 0.5 % (0.0-1.0); %Eosinophils 3.1 % (0.0-10.0); %Lymphocytes 18.9 % (21.0-51.0); %Monocytes 8.4 % (0.0-10.0); %Neutrophils 68.1 % (42.0-75.0); Hematocrit 25.2 % (42.0-52.0); Mean Corpuscular HGB CONC 31.7 g/dL (32.0-36.0); Mean Corpuscular Hemoglobin 27.3 pg (27.0-31.0); Platelet Count 165 10x3/uL (130-400); RBC Distribution Width 17.4 % (11.5-14.5); Red Blood Cell (RBC) Count 2.93 mill/uL (4.70-6.10); White Blood Cell (WBC) Count 8.6 10x3/uL (4.8-10.8)
[2023-04-21] MEDS: Famotidine 20 MG TAB PO SCH (20:01)
[2023-04-21] MEDS: Melatonin 3 MG TAB PO PRN (20:01)
[2023-04-21] MEDS: Donepezil HCl 5 MG TAB PO SCH (20:01)
[2023-04-22] MEDS: Lactated Ringer's 1,000 ML IV SCH ×3 (05:04→17:35)
[2023-04-22] MEDS: Meropenem 500 MG in Sodium Chloride 0.9% 100 ML IVPB SCH ×2 (05:39→17:35)
[2023-04-22] MEDS: Mometasone 200 MCG/Formoterol 5 MCG 120 PUFF INHALER INH SCH ×2 (08:09→19:08)
[2023-04-22] MEDS: Apixaban 5 MG TAB PO SCH ×2 (08:26→19:43)
[2023-04-22] MEDS: Aspirin 81 mg Enteric Coated Tablet PO SCH (08:26)
[2023-04-22] MEDS: QUEtiapine 25 MG TAB PO SCH ×2 (08:26→19:44)
[2023-04-22] MEDS: Bisacodyl 10 MG SUPP PR SCH (08:27)
[2023-04-22 08:49] LABS: #Eosinphils 0.3 thou/uL (0.0-0.7); #Monocytes 0.8 thou/uL (0.11-0.59); #Neutrophils 6.2 thou/uL (1.40-6.50); %Basophils 0.4 % (0.0-1.0); %Eosinophils 3.1 % (0.0-10.0); %Monocytes 8.4 % (0.0-10.0); %Neutrophils 67.1 % (42.0-75.0); Hematocrit 25.5 % (42.0-52.0); Hemoglobin 7.8 g/dL (14.0-18.0); Mean Corpuscular HGB CONC 30.6 g/dL (32.0-36.0); Mean Corpuscular Hemoglobin 27.2 pg (27.0-31.0); Mean Platelet Volume 10.1 fL (7.4-10.4); Platelet Count 195 10x3/uL (130-400); RBC Distribution Width 17.3 % (11.5-14.5); Red Blood Cell (RBC) Count 2.87 mill/uL (4.70-6.10); White Blood Cell (WBC) Count 9.2 10x3/uL (4.8-10.8)
[2023-04-22 08:56] LABS: Mean Corpuscular Volume 88.9 fl (78.0-98.0)
[2023-04-22 09:10] LABS: Anion Gap 15 mmol/L (10-20); BUN (Urea Nitrogen) 44 mg/dL (8.4-25.7); Calc. Creatinine Clearance 29 mL/min (70-130); Calcium 8.5 mg/dL (7.8-10.44); Carbon Dioxide 23 mmol/L (23-31); Chloride 106 mmol/L (98-107); Estimated GFR 31; Glucose 83 mg/dL (83-110); Potassium 3.8 mmol/L (3.5-5.1); Sodium 140 mmol/L (136-145)
[2023-04-22] MEDS: Iron, Sodium Ferric Gluconate 250 MG in Sodium Chloride 0.9% 250 ML 250 ML IVPB SCH (09:45)
[2023-04-22] MEDS: Famotidine 20 MG TAB PO SCH (19:43)
[2023-04-22] MEDS: Melatonin 3 MG TAB PO PRN (19:44)
[2023-04-22] MEDS: Acetaminophen 325 MG TAB PO PRN (19:44)
[2023-04-22] MEDS: Donepezil HCl 5 MG TAB PO SCH (19:44)
[2023-04-23] MEDS: Lactated Ringer's 1,000 ML IV SCH ×4 (01:41→23:34)
[2023-04-23] MEDS: Meropenem 500 MG in Sodium Chloride 0.9% 100 ML IVPB SCH ×2 (05:15→17:32)
[2023-04-23] MEDS: Mometasone 200 MCG/Formoterol 5 MCG 120 PUFF INHALER INH SCH ×2 (07:14→19:35)
[2023-04-23 08:07] LABS: ALT (SGPT) 15 U/L (8-55); AST (SGOT) 19 U/L (5-34); Albumin 2.8 g/dL (3.4-4.8); Alkaline Phosphatase 97 U/L (40-110); Anion Gap 15 mmol/L (10-20); BUN (Urea Nitrogen) 44 mg/dL (8.4-25.7); Bilirubin, Total 0.6 mg/dL (0.2-1.2); Calc. Creatinine Clearance 30 mL/min (70-130); Calcium 8.7 mg/dL (7.8-10.44); Carbon Dioxide 21 mmol/L (23-31); Chloride 107 mmol/L (98-107); Estimated GFR 32; Globulin 3.8 g/dL (2.4-3.5); Glucose 76 mg/dL (83-110); Magnesium 1.7 mg/dL (1.6-2.6); Potassium 4.2 mmol/L (3.5-5.1); Protein, Total 6.6 g/dL (5.8-8.1); Sodium 139 mmol/L (136-145)
[2023-04-23] MEDS: QUEtiapine 25 MG TAB PO SCH ×2 (08:37→19:15)
[2023-04-23] MEDS: Apixaban 5 MG TAB PO SCH ×2 (08:37→19:14)
[2023-04-23] MEDS: Aspirin 81 mg Enteric Coated Tablet PO SCH (08:37)
[2023-04-23] MEDS: Bisacodyl 10 MG SUPP PR SCH (08:38)
[2023-04-23 08:41] LABS: #Basophils 0.1 thou/uL (0.0-0.2); #Eosinphils 0.2 thou/uL (0.0-0.7); #Neutrophils 6.6 thou/uL (1.40-6.50); %Basophils 0.8 % (0.0-1.0); %Eosinophils 2.1 % (0.0-10.0); %Lymphocytes 22.9 % (21.0-51.0); %Monocytes 9.5 % (0.0-10.0); %Neutrophils 62.1 % (42.0-75.0); Hematocrit 28.8 % (42.0-52.0); Hemoglobin 8.9 g/dL (14.0-18.0); Mean Corpuscular HGB CONC 30.9 g/dL (32.0-36.0); Mean Corpuscular Hemoglobin 26.7 pg (27.0-31.0); Mean Corpuscular Volume 86.5 fl (78.0-98.0); Mean Platelet Volume 10.5 fL (7.4-10.4); Platelet Count 239 10x3/uL (130-400); RBC Distribution Width 17.4 % (11.5-14.5); Red Blood Cell (RBC) Count 3.33 mill/uL (4.70-6.10); White Blood Cell (WBC) Count 10.7 10x3/uL (4.8-10.8)
[2023-04-23] MEDS ORDERED: Magnesium Sulfate In Water 4 GM in Premix 1 BAG IVPB SCH (15:45)
[2023-04-23] MEDS: Famotidine 20 MG TAB PO SCH (19:15)
[2023-04-23] MEDS: Acetaminophen 325 MG TAB PO PRN (19:15)
[2023-04-23] MEDS: Melatonin 3 MG TAB PO PRN (19:15)
[2023-04-23] MEDS: Donepezil HCl 5 MG TAB PO SCH (19:15)
[2023-04-23] MEDS: Senokot S 8.6-50 MG TAB PO SCH (19:16)
[2023-04-24] MEDS: Lactated Ringer's 1,000 ML IV SCH ×4 (04:42→17:59)
[2023-04-24] MEDS: Meropenem 500 MG in Sodium Chloride 0.9% 100 ML IVPB SCH ×2 (05:35→17:59)
[2023-04-24] MEDS: Mometasone 200 MCG/Formoterol 5 MCG 120 PUFF INHALER INH SCH ×2 (07:25→22:40)
[2023-04-24 07:29] LABS: #Eosinphils 0.2 thou/uL (0.0-0.7); #Monocytes 0.8 thou/uL (0.11-0.59); #Neutrophils 5.4 thou/uL (1.40-6.50); %Basophils 0.5 % (0.0-1.0); %Eosinophils 2.1 % (0.0-10.0); %Monocytes 9.6 % (0.0-10.0); %Neutrophils 64.5 % (42.0-75.0); Hematocrit 24.9 % (42.0-52.0); Hemoglobin 7.6 g/dL (14.0-18.0); Mean Corpuscular HGB CONC 30.5 g/dL (32.0-36.0); Mean Corpuscular Hemoglobin 26.9 pg (27.0-31.0); Mean Platelet Volume 9.7 fL (7.4-10.4); Platelet Count 267 10x3/uL (130-400); RBC Distribution Width 17.5 % (11.5-14.5); Red Blood Cell (RBC) Count 2.83 mill/uL (4.70-6.10); White Blood Cell (WBC) Count 8.4 10x3/uL (4.8-10.8)
[2023-04-24] MEDS: Bisacodyl 5 MG TAB PO PRN (08:50)
[2023-04-24] MEDS: Aspirin 81 mg Enteric Coated Tablet PO SCH (08:51)
[2023-04-24] MEDS: Senokot S 8.6-50 MG TAB PO SCH ×2 (08:51→20:25)
[2023-04-24] MEDS: QUEtiapine 25 MG TAB PO SCH (08:51)
[2023-04-24] MEDS: Folic Acid 1 MG TAB PO SCH (08:51)
[2023-04-24] MEDS: Apixaban 5 MG TAB PO SCH ×2 (08:51→20:26)
[2023-04-24] MEDS: Bisacodyl 10 MG SUPP PR SCH (09:03)
[2023-04-24] MEDS ORDERED: QUEtiapine 25 MG TAB PO SCH ×2 (09:32→21:00)
[2023-04-24 14:11] LABS: Albumin 2.7 g/dL (3.4-4.8); Anion Gap 14 mmol/L (10-20); BUN (Urea Nitrogen) 44 mg/dL (8.4-25.7); BUN/Creatinine Ratio 24.04; Calc. Creatinine Clearance 35 mL/min (70-130); Calcium 8.2 mg/dL (7.8-10.44); Carbon Dioxide 25 mmol/L (23-31); Chloride 104 mmol/L (98-107); Estimated GFR 38; Glucose 113 mg/dL (83-110); Phosphorus 3.9 mg/dL (2.3-4.7); Potassium 4.2 mmol/L (3.5-5.1); Sodium 139 mmol/L (136-145)
[2023-04-24] MEDS: Melatonin 3 MG TAB PO PRN (20:25)
[2023-04-24] MEDS: Donepezil HCl 5 MG TAB PO SCH (20:26)
[2023-04-24] MEDS: QUEtiapine 100 MG TAB PO SCH (20:26)
[2023-04-24] MEDS: Acetaminophen 325 MG TAB PO PRN (20:26)
[2023-04-24] MEDS: Famotidine 20 MG TAB PO SCH (20:26)
[2023-04-25] MEDS: Lactated Ringer's 1,000 ML IV SCH ×5 (06:00→22:27)
[2023-04-25] MEDS: Meropenem 500 MG in Sodium Chloride 0.9% 100 ML IVPB SCH ×2 (06:00→18:28)
[2023-04-25 07:13] LABS: Albumin 2.8 g/dL (3.4-4.8); Anion Gap 13 mmol/L (10-20); BUN (Urea Nitrogen) 45 mg/dL (8.4-25.7); BUN/Creatinine Ratio 26.01; Calc. Creatinine Clearance 37 mL/min (70-130); Calcium 8.3 mg/dL (7.8-10.44); Carbon Dioxide 24 mmol/L (23-31); Chloride 107 mmol/L (98-107); Estimated GFR 41; Glucose 80 mg/dL (83-110); Phosphorus 4.2 mg/dL (2.3-4.7); Potassium 4.6 mmol/L (3.5-5.1); Sodium 139 mmol/L (136-145)
[2023-04-25] MEDS: Mometasone 200 MCG/Formoterol 5 MCG 120 PUFF INHALER INH SCH ×2 (07:18→20:04)
[2023-04-25] MEDS: Folic Acid 1 MG TAB PO SCH (08:58)
[2023-04-25] MEDS: Aspirin 81 mg Enteric Coated Tablet PO SCH (08:58)
[2023-04-25] MEDS: Apixaban 5 MG TAB PO SCH ×2 (08:58→22:28)
[2023-04-25] MEDS: Bisacodyl 5 MG TAB PO PRN (08:58)
[2023-04-25] MEDS: Senokot S 8.6-50 MG TAB PO SCH ×2 (08:58→22:28)
[2023-04-25] MEDS: DULoxetine 30 MG CAP PO SCH (08:58)
[2023-04-25] MEDS: QUEtiapine 100 MG TAB PO SCH ×2 (08:58→22:28)
[2023-04-25] MEDS: Bisacodyl 10 MG SUPP PR SCH (08:59)
[2023-04-25] MEDS: Iron, Sodium Ferric Gluconate 250 MG in Sodium Chloride 0.9% 250 ML 250 ML IVPB SCH (12:40)
[2023-04-25] MEDS: Famotidine 20 MG TAB PO SCH (22:28)
[2023-04-25] MEDS: Melatonin 3 MG TAB PO PRN (22:28)
[2023-04-25] MEDS: Acetaminophen 325 MG TAB PO PRN (22:29)
[2023-04-25] MEDS: Donepezil HCl 5 MG TAB PO SCH (22:34)
[2023-04-26] MEDS: Lactated Ringer's 1,000 ML IV SCH ×5 (00:30→20:25)
[2023-04-26] MEDS: Meropenem 500 MG in Sodium Chloride 0.9% 100 ML IVPB SCH (06:25)
[2023-04-26] MEDS: Mometasone 200 MCG/Formoterol 5 MCG 120 PUFF INHALER INH SCH ×2 (07:09→21:14)
[2023-04-26] MEDS: Aspirin 81 mg Enteric Coated Tablet PO SCH (09:13)
[2023-04-26] MEDS: DULoxetine 30 MG CAP PO SCH (09:13)
[2023-04-26] MEDS: QUEtiapine 100 MG TAB PO SCH ×2 (09:13→20:25)
[2023-04-26] MEDS: Senokot S 8.6-50 MG TAB PO SCH ×2 (09:13→20:25)
[2023-04-26] MEDS: Folic Acid 1 MG TAB PO SCH (09:13)
[2023-04-26] MEDS: Apixaban 5 MG TAB PO SCH ×2 (09:13→20:25)
[2023-04-26] MEDS: EPOETIN ALFA-EPBX (ESRD) 10,000 UNITS/ML VIAL SC SCH (09:14)
[2023-04-26] MEDS: Bisacodyl 5 MG TAB PO PRN (09:14)
[2023-04-26] MEDS: Iron, Sodium Ferric Gluconate 250 MG in Sodium Chloride 0.9% 250 ML 250 ML IVPB SCH (09:59)
[2023-04-26] MEDS: Bisacodyl 10 MG SUPP PR SCH (10:14)
[2023-04-26] MEDS: Acetaminophen 325 MG TAB PO PRN (11:20)
[2023-04-26 12:36] LABS: #Eosinphils 0.2 thou/uL (0.0-0.7); #Monocytes 0.7 thou/uL (0.11-0.59); #Neutrophils 3.8 thou/uL (1.40-6.50); %Basophils 0.5 % (0.0-1.0); %Eosinophils 2.8 % (0.0-10.0); %Lymphocytes 26.2 % (21.0-51.0); %Monocytes 10.9 % (0.0-10.0); %Neutrophils 58.4 % (42.0-75.0); Hemoglobin 7.2 g/dL (14.0-18.0); Mean Corpuscular Hemoglobin 27.3 pg (27.0-31.0); Mean Corpuscular Volume 90.9 fl (78.0-98.0); Mean Platelet Volume 9.7 fL (7.4-10.4); Platelet Count 299 10x3/uL (130-400); RBC Distribution Width 17.8 % (11.5-14.5); Red Blood Cell (RBC) Count 2.64 mill/uL (4.70-6.10); White Blood Cell (WBC) Count 6.5 10x3/uL (4.8-10.8)
[2023-04-26 12:57] LABS: Albumin 2.7 g/dL (3.4-4.8); Anion Gap 13 mmol/L (10-20); BUN (Urea Nitrogen) 41 mg/dL (8.4-25.7); BUN/Creatinine Ratio 26.28; Calc. Creatinine Clearance 42 mL/min (70-130); Calcium 8.4 mg/dL (7.8-10.44); Carbon Dioxide 26 mmol/L (23-31); Chloride 109 mmol/L (98-107); Estimated GFR 46; Glucose 94 mg/dL (83-110); Phosphorus 4.1 mg/dL (2.3-4.7); Potassium 4.6 mmol/L (3.5-5.1); Sodium 143 mmol/L (136-145)
[2023-04-26] MEDS: Meropenem 1 GM in Sodium Chloride 0.9% 100 ML IVPB SCH (18:15)
[2023-04-26] MEDS: Simvastatin 10 MG TAB PO SCH (20:25)
[2023-04-26] MEDS: Donepezil HCl 5 MG TAB PO SCH (20:25)
[2023-04-26] MEDS: Famotidine 20 MG TAB PO SCH (20:25)
[2023-04-27] MEDS: Lactated Ringer's 1,000 ML IV SCH ×2 (01:58→05:03)
[2023-04-27] MEDS: Meropenem 1 GM in Sodium Chloride 0.9% 100 ML IVPB SCH ×2 (05:04→17:13)
[2023-04-27] MEDS: Mometasone 200 MCG/Formoterol 5 MCG 120 PUFF INHALER INH SCH ×2 (06:40→19:39)
[2023-04-27 07:37] LABS: #Basophils 0.1 thou/uL (0.0-0.2); #Eosinphils 0.2 thou/uL (0.0-0.7); #Monocytes 0.8 thou/uL (0.11-0.59); %Basophils 0.7 % (0.0-1.0); %Eosinophils 2.2 % (0.0-10.0); %Lymphocytes 29.5 % (21.0-51.0); %Monocytes 10.8 % (0.0-10.0); Hematocrit 24.4 % (42.0-52.0); Hemoglobin 7.2 g/dL (14.0-18.0); Mean Corpuscular HGB CONC 29.5 g/dL (32.0-36.0); Mean Corpuscular Hemoglobin 26.8 pg (27.0-31.0); Mean Corpuscular Volume 90.7 fl (78.0-98.0); Mean Platelet Volume 10.3 fL (7.4-10.4); Platelet Count 353 10x3/uL (130-400); RBC Distribution Width 17.7 % (11.5-14.5); Red Blood Cell (RBC) Count 2.69 mill/uL (4.70-6.10); White Blood Cell (WBC) Count 7.3 10x3/uL (4.8-10.8)
[2023-04-27 08:09] LABS: Anion Gap 12 mmol/L (10-20); BUN (Urea Nitrogen) 39 mg/dL (8.4-25.7); Calc. Creatinine Clearance 41 mL/min (70-130); Calcium 8.7 mg/dL (7.8-10.44); Carbon Dioxide 25 mmol/L (23-31); Chloride 107 mmol/L (98-107); Estimated GFR 45; Glucose 76 mg/dL (83-110); Potassium 4.9 mmol/L (3.5-5.1); Sodium 139 mmol/L (136-145)
[2023-04-27] MEDS: Bisacodyl 10 MG SUPP PR SCH (08:44)
[2023-04-27] MEDS: Aspirin 81 mg Enteric Coated Tablet PO SCH (08:59)
[2023-04-27] MEDS: Folic Acid 1 MG TAB PO SCH (08:59)
[2023-04-27] MEDS: Acetaminophen 325 MG TAB PO PRN (08:59)
[2023-04-27] MEDS: Senokot S 8.6-50 MG TAB PO SCH ×2 (08:59→20:04)
[2023-04-27] MEDS: Apixaban 5 MG TAB PO SCH ×2 (09:08→20:04)
[2023-04-27] MEDS: DULoxetine 30 MG CAP PO SCH (09:08)
[2023-04-27] MEDS: QUEtiapine 100 MG TAB PO SCH ×2 (09:08→20:04)
[2023-04-27] MEDS: Famotidine 20 MG TAB PO SCH (20:04)
[2023-04-27] MEDS: Simvastatin 10 MG TAB PO SCH (20:04)
[2023-04-27] MEDS: Donepezil HCl 5 MG TAB PO SCH (20:04)
[2023-04-27] MEDS: DAPTOmycin 600 MG in Sodium Chloride 0.9% 50 ML IVPB SCH (20:05)
[2023-04-28] MEDS: Meropenem 1 GM in Sodium Chloride 0.9% 100 ML IVPB SCH ×2 (05:19→17:08)
[2023-04-28] MEDS: Mometasone 200 MCG/Formoterol 5 MCG 120 PUFF INHALER INH SCH ×2 (07:16→19:02)
[2023-04-28] MEDS: Bisacodyl 10 MG SUPP PR SCH (08:12)
[2023-04-28] MEDS: Senokot S 8.6-50 MG TAB PO SCH ×2 (08:12→19:58)
[2023-04-28] MEDS: Folic Acid 1 MG TAB PO SCH (08:12)
[2023-04-28] MEDS: DULoxetine 30 MG CAP PO SCH (08:12)
[2023-04-28] MEDS: Apixaban 5 MG TAB PO SCH ×2 (08:13→19:57)
[2023-04-28] MEDS: Aspirin 81 mg Enteric Coated Tablet PO SCH (08:13)
[2023-04-28] MEDS: QUEtiapine 100 MG TAB PO SCH ×2 (08:13→19:57)
[2023-04-28] MEDS: Albumin 25% 25 GM (100 mL) BOT IVPB SCH ×3 (11:29→23:16)
[2023-04-28] MEDS: Famotidine 20 MG TAB PO SCH (19:57)
[2023-04-28] MEDS: DAPTOmycin 600 MG in Sodium Chloride 0.9% 50 ML IVPB SCH (19:57)
[2023-04-28] MEDS: Donepezil HCl 5 MG TAB PO SCH (19:57)
[2023-04-28] MEDS: Acetaminophen 325 MG TAB PO PRN (19:58)
[2023-04-28] MEDS: Simvastatin 10 MG TAB PO SCH (19:58)
[2023-04-29] MEDS: Acetaminophen 325 MG TAB PO PRN ×4 (05:02→21:01)
[2023-04-29] MEDS: Albumin 25% 25 GM (100 mL) BOT IVPB SCH (05:04)
[2023-04-29] MEDS: Meropenem 1 GM in Sodium Chloride 0.9% 100 ML IVPB SCH ×2 (05:04→17:45)
[2023-04-29] MEDS: Mometasone 200 MCG/Formoterol 5 MCG 120 PUFF INHALER INH SCH ×2 (07:01→18:32)
[2023-04-29] MEDS: Senokot S 8.6-50 MG TAB PO SCH ×2 (09:24→21:02)
[2023-04-29] MEDS: Folic Acid 1 MG TAB PO SCH (09:24)
[2023-04-29] MEDS: Apixaban 5 MG TAB PO SCH ×2 (09:24→21:02)
[2023-04-29] MEDS: QUEtiapine 100 MG TAB PO SCH ×2 (09:24→21:01)
[2023-04-29] MEDS: Bisacodyl 10 MG SUPP PR SCH (09:25)
[2023-04-29] MEDS: DULoxetine 30 MG CAP PO SCH (09:30)
[2023-04-29] MEDS: Aspirin 81 mg Enteric Coated Tablet PO SCH (09:33)
[2023-04-29 09:34] LABS: #Basophils 0.1 thou/uL (0.0-0.2); #Eosinphils 0.2 thou/uL (0.0-0.7); #Monocytes 0.7 thou/uL (0.11-0.59); #Neutrophils 9.7 thou/uL (1.40-6.50); %Basophils 0.6 % (0.0-1.0); %Eosinophils 1.6 % (0.0-10.0); %Lymphocytes 11.3 % (21.0-51.0); %Monocytes 5.8 % (0.0-10.0); %Neutrophils 79.8 % (42.0-75.0); Hemoglobin 7.7 g/dL (14.0-18.0); Mean Corpuscular HGB CONC 29.6 g/dL (32.0-36.0); Mean Corpuscular Hemoglobin 27.7 pg (27.0-31.0); Mean Corpuscular Volume 93.5 fl (78.0-98.0); Mean Platelet Volume 10.1 fL (7.4-10.4); Platelet Count 350 10x3/uL (130-400); RBC Distribution Width 18.2 % (11.5-14.5); Red Blood Cell (RBC) Count 2.78 mill/uL (4.70-6.10); White Blood Cell (WBC) Count 12.2 10x3/uL (4.8-10.8)
[2023-04-29 10:10] LABS: Anion Gap 16 mmol/L (10-20); BUN (Urea Nitrogen) 44 mg/dL (8.4-25.7); Calc. Creatinine Clearance 34 mL/min (70-130); Calcium 8.8 mg/dL (7.8-10.44); Carbon Dioxide 21 mmol/L (23-31); Chloride 105 mmol/L (98-107); Estimated GFR 36; Glucose 147 mg/dL (83-110); Potassium 4.6 mmol/L (3.5-5.1); Sodium 137 mmol/L (136-145)
[2023-04-29] MEDS: DAPTOmycin 600 MG in Sodium Chloride 0.9% 50 ML IVPB SCH (20:55)
[2023-04-29] MEDS: Famotidine 20 MG TAB PO SCH (21:01)
[2023-04-29] MEDS: Simvastatin 10 MG TAB PO SCH (21:01)
[2023-04-29] MEDS: Donepezil HCl 5 MG TAB PO SCH (21:01)
[2023-04-29] MEDS: Doxycycline 100 MG in Sodium Chloride 0.9% 100 ML IVPB SCH (22:14)
[2023-04-30 00:51] LABS: Bacteria/HPF None Seen HPF (None Seen); Bilirubin Negative (Negative); Blood, Urine Negative (Negative); Clarity Clear (Clear); Glucose, Urine (Dipstick) Normal (Negative); Ketone, Urine Negative (Negative); Leukocyte 25 Leu/uL (Negative); Nitrite Negative (Negative); Protein, Urine (Dipstick) 20 mg/dL (Neg-Trace); RBC/HPF 0-3 HPF (0-3); Specific Gravity, Urine 1.012 (1.002-1.036); Squamous Epithelial None Seen HPF (0-3); Urobilinogen Normal mg/dL (Less than 2)
[2023-04-30] MEDS: Meropenem 1 GM in Sodium Chloride 0.9% 100 ML IVPB SCH ×2 (06:09→17:16)
[2023-04-30 06:14] VITALS: BMI 20.7
[2023-04-30 06:44] LABS: Hematocrit 24.6 % (42.0-52.0); Hemoglobin 7.6 g/dL (14.0-18.0); Manual Diff?? YES; Mean Corpuscular HGB CONC 30.9 g/dL (32.0-36.0); Mean Corpuscular Hemoglobin 27.5 pg (27.0-31.0); Platelet Count 354 10x3/uL (130-400); RBC Distribution Width 18.6 % (11.5-14.5); Red Blood Cell (RBC) Count 2.76 mill/uL (4.70-6.10); White Blood Cell (WBC) Count 16.1 10x3/uL (4.8-10.8)
[2023-04-30 07:07] LABS: Anion Gap 11 mmol/L (10-20); BUN (Urea Nitrogen) 46 mg/dL (8.4-25.7); Calc. Creatinine Clearance 36 mL/min (70-130); Calcium 8.8 mg/dL (7.8-10.44); Carbon Dioxide 23 mmol/L (23-31); Chloride 105 mmol/L (98-107); Estimated GFR 39; Glucose 100 mg/dL (83-110); Potassium 4.4 mmol/L (3.5-5.1); Sodium 135 mmol/L (136-145)
[2023-04-30 07:33] LABS: Delete Auto Diff?? YES
[2023-04-30] MEDS: Folic Acid 1 MG TAB PO SCH (08:11)
[2023-04-30] MEDS: Bisacodyl 5 MG TAB PO PRN (08:11)
[2023-04-30] MEDS: Apixaban 5 MG TAB PO SCH ×2 (08:11→21:01)
[2023-04-30] MEDS: Senokot S 8.6-50 MG TAB PO SCH ×2 (08:11→21:00)
[2023-04-30] MEDS: QUEtiapine 100 MG TAB PO SCH ×2 (08:11→21:01)
[2023-04-30] MEDS: Aspirin 81 mg Enteric Coated Tablet PO SCH (08:12)
[2023-04-30] MEDS: DULoxetine 30 MG CAP PO SCH (08:12)
[2023-04-30] MEDS: Doxycycline 100 MG in Sodium Chloride 0.9% 100 ML IVPB SCH ×2 (08:12→21:01)
[2023-04-30] MEDS: Mometasone 200 MCG/Formoterol 5 MCG 120 PUFF INHALER INH SCH ×2 (08:29→18:37)
[2023-04-30] MEDS: Bisacodyl 10 MG SUPP PR SCH (08:55)
[2023-04-30 08:56] LABS: Band 3 % (5-11); Eosinophils 2 % (0-10); Lymphocytes 19 % (21-51); Metamyelocyte 1 % (0-0); Monocytes 6 % (0-10); Neutrophil 69 % (42-75)
[2023-04-30 08:57] LABS: Platelet Adequacy Comment Appears Adequate
[2023-04-30 08:59] LABS: Mean Corpuscular Volume 89.1 fl (78.0-98.0)
[2023-04-30 12:21] LABS: #Basophils 0.1 thou/uL (0.0-0.2); #Eosinphils 0.5 thou/uL (0.0-0.7); #Monocytes 1.6 thou/uL (0.11-0.59); #Neutrophils 12.3 thou/uL (1.40-6.50); %Basophils 0.4 % (0.0-1.0); %Eosinophils 2.9 % (0.0-10.0); %Lymphocytes 10.7 % (21.0-51.0); %Monocytes 9.8 % (0.0-10.0); Hemoglobin 7.6 g/dL (14.0-18.0); Mean Corpuscular HGB CONC 29.2 g/dL (32.0-36.0); Mean Corpuscular Hemoglobin 27.5 pg (27.0-31.0); Mean Platelet Volume 10.1 fL (7.4-10.4); Platelet Count 325 10x3/uL (130-400); RBC Distribution Width 18.6 % (11.5-14.5); Red Blood Cell (RBC) Count 2.76 mill/uL (4.70-6.10); White Blood Cell (WBC) Count 16.4 10x3/uL (4.8-10.8)
[2023-04-30 12:35] LABS: Mean Corpuscular Volume 94.2 fl (78.0-98.0)
[2023-04-30] MEDS: Acetaminophen 325 MG TAB PO PRN ×2 (12:51→21:00)
[2023-04-30] MEDS: Albumin 25% 25 GM (100 mL) BOT IVPB SCH ×2 (12:52→17:16)
[2023-04-30] MEDS: Melatonin 3 MG TAB PO PRN (21:00)
[2023-04-30] MEDS: Donepezil HCl 5 MG TAB PO SCH (21:00)
[2023-04-30] MEDS: DAPTOmycin 600 MG in Sodium Chloride 0.9% 50 ML IVPB SCH (21:01)
[2023-04-30] MEDS: Simvastatin 10 MG TAB PO SCH (21:01)
[2023-04-30] MEDS: Famotidine 20 MG TAB PO SCH (21:01)
[2023-05-01] MEDS: Albumin 25% 25 GM (100 mL) BOT IVPB SCH ×2 (00:52→06:06)
[2023-05-01 02:45] LABS: Bacteria/HPF None Seen HPF (None Seen); Bilirubin Negative (Negative); Blood, Urine 1+ (Negative); Clarity Clear (Clear); Glucose, Urine (Dipstick) Normal (Negative); Ketone, Urine Negative (Negative); Leukocyte Negative Leu/uL (Negative); Nitrite Negative (Negative); Protein, Urine (Dipstick) 50 mg/dL (Neg-Trace); Specific Gravity, Urine 1.009 (1.002-1.036); Squamous Epithelial 0-3 HPF (0-3); Transitional Epithelial 0-3 HPF (None Seen); Urobilinogen Normal mg/dL (Less than 2); pH, Urine 6.5 (5.0-9.0)
[2023-05-01] MEDS: Meropenem 1 GM in Sodium Chloride 0.9% 100 ML IVPB SCH ×2 (06:06→18:40)
[2023-05-01] MEDS: Mometasone 200 MCG/Formoterol 5 MCG 120 PUFF INHALER INH SCH ×2 (08:15→19:19)
[2023-05-01] MEDS: Aspirin 81 mg Enteric Coated Tablet PO SCH (09:41)
[2023-05-01] MEDS: Doxycycline 100 MG in Sodium Chloride 0.9% 100 ML IVPB SCH ×2 (09:41→20:43)
[2023-05-01] MEDS: Acetaminophen 325 MG TAB PO PRN ×2 (09:41→20:42)
[2023-05-01] MEDS: Apixaban 5 MG TAB PO SCH ×2 (09:42→20:42)
[2023-05-01] MEDS: Bisacodyl 10 MG SUPP PR SCH (09:42)
[2023-05-01] MEDS: Folic Acid 1 MG TAB PO SCH (09:42)
[2023-05-01] MEDS: QUEtiapine 100 MG TAB PO SCH ×2 (09:42→20:43)
[2023-05-01] MEDS: Senokot S 8.6-50 MG TAB PO SCH ×2 (09:42→20:42)
[2023-05-01] MEDS: DULoxetine 30 MG CAP PO SCH (09:42)
[2023-05-01] MEDS: Bisacodyl 5 MG TAB PO PRN (09:43)
[2023-05-01 10:39] LABS: Albumin 4.1 g/dL (3.4-4.8)
[2023-05-01 10:40] LABS: Anion Gap 18 mmol/L (10-20); BUN (Urea Nitrogen) 47 mg/dL (8.4-25.7); Calc. Creatinine Clearance 38 mL/min (70-130); Calcium 9.5 mg/dL (7.8-10.44); Carbon Dioxide 21 mmol/L (23-31); Chloride 105 mmol/L (98-107); Estimated GFR 42; Glucose 123 mg/dL (83-110); Potassium 4.6 mmol/L (3.5-5.1); Sodium 139 mmol/L (136-145)
[2023-05-01] MEDS: Simvastatin 10 MG TAB PO SCH (20:42)
[2023-05-01] MEDS: Donepezil HCl 5 MG TAB PO SCH (20:42)
[2023-05-01] MEDS: Famotidine 20 MG TAB PO SCH (20:42)
[2023-05-01] MEDS: Melatonin 3 MG TAB PO PRN (20:42)
[2023-05-01] MEDS: DAPTOmycin 600 MG in Sodium Chloride 0.9% 50 ML IVPB SCH (20:43)
[2023-05-01 23:41] LABS: Legionella Urinary Ag Negative (Negative)
[2023-05-01 23:42] LABS: Strep pneumo Urine Ag NEGATIVE (NEGATIVE)
[2023-05-02] MEDS: Meropenem 1 GM in Sodium Chloride 0.9% 100 ML IVPB SCH ×2 (05:03→18:26)
[2023-05-02] MEDS: Mometasone 200 MCG/Formoterol 5 MCG 120 PUFF INHALER INH SCH ×3 (07:53→19:18)
[2023-05-02] MEDS: Apixaban 5 MG TAB PO SCH ×2 (08:54→22:15)
[2023-05-02] MEDS: QUEtiapine 100 MG TAB PO SCH ×2 (08:54→22:15)
[2023-05-02] MEDS: DULoxetine 30 MG CAP PO SCH (08:54)
[2023-05-02] MEDS: Folic Acid 1 MG TAB PO SCH (08:55)
[2023-05-02] MEDS: Doxycycline 100 MG in Sodium Chloride 0.9% 100 ML IVPB SCH (08:55)
[2023-05-02] MEDS: Aspirin 81 mg Enteric Coated Tablet PO SCH (08:55)
[2023-05-02] MEDS: Senokot S 8.6-50 MG TAB PO SCH ×2 (08:55→22:15)
[2023-05-02] MEDS: Bisacodyl 5 MG TAB PO PRN (08:55)
[2023-05-02] MEDS: Bisacodyl 10 MG SUPP PR SCH (08:56)
[2023-05-02 11:15] LABS: #Eosinphils 0.6 thou/uL (0.0-0.7); #Monocytes 1.7 thou/uL (0.11-0.59); #Neutrophils 8.4 thou/uL (1.40-6.50); %Basophils 0.3 % (0.0-1.0); %Eosinophils 5.2 % (0.0-10.0); %Lymphocytes 12.6 % (21.0-51.0); %Monocytes 13.9 % (0.0-10.0); %Neutrophils 67.2 % (42.0-75.0); Hematocrit 25.1 % (42.0-52.0); Hemoglobin 7.5 g/dL (14.0-18.0); Mean Corpuscular HGB CONC 29.9 g/dL (32.0-36.0); Mean Corpuscular Hemoglobin 26.6 pg (27.0-31.0); Mean Platelet Volume 10.1 fL (7.4-10.4); Platelet Count 376 10x3/uL (130-400); RBC Distribution Width 18.6 % (11.5-14.5); Red Blood Cell (RBC) Count 2.82 mill/uL (4.70-6.10); White Blood Cell (WBC) Count 12.4 10x3/uL (4.8-10.8)
[2023-05-02 11:30] LABS: Anion Gap 15 mmol/L (10-20); BUN (Urea Nitrogen) 45 mg/dL (8.4-25.7); Calc. Creatinine Clearance 41 mL/min (70-130); Calcium 9.4 mg/dL (7.8-10.44); Carbon Dioxide 22 mmol/L (23-31); Chloride 108 mmol/L (98-107); Estimated GFR 45; Glucose 117 mg/dL (83-110); Potassium 4.2 mmol/L (3.5-5.1); Sodium 141 mmol/L (136-145)
[2023-05-02 11:32] LABS: Magnesium 1.8 mg/dL (1.6-2.6)
[2023-05-02] MEDS: Acetaminophen 325 MG TAB PO PRN (18:26)
[2023-05-02] MEDS: DAPTOmycin 600 MG in Sodium Chloride 0.9% 50 ML IVPB SCH (22:15)
[2023-05-02] MEDS: Famotidine 20 MG TAB PO SCH (22:15)
[2023-05-02] MEDS: Simvastatin 10 MG TAB PO SCH (22:15)
[2023-05-02] MEDS: Donepezil HCl 5 MG TAB PO SCH (22:15)
[2023-05-03] MEDS: Doxycycline 100 MG in Sodium Chloride 0.9% 100 ML IVPB SCH (00:32)
[2023-05-03] MEDS: Meropenem 1 GM in Sodium Chloride 0.9% 100 ML IVPB SCH ×2 (05:46→17:32)
[2023-05-03] MEDS: QUEtiapine 100 MG TAB PO SCH ×2 (07:53→21:36)
[2023-05-03] MEDS: Acetaminophen 325 MG TAB PO PRN ×2 (07:53→17:39)
[2023-05-03] MEDS: Mometasone 200 MCG/Formoterol 5 MCG 120 PUFF INHALER INH SCH ×2 (07:53→18:53)
[2023-05-03] MEDS: Aspirin 81 mg Enteric Coated Tablet PO SCH (07:54)
[2023-05-03] MEDS: Apixaban 5 MG TAB PO SCH ×2 (07:54→21:36)
[2023-05-03] MEDS: DULoxetine 30 MG CAP PO SCH (07:54)
[2023-05-03] MEDS: Senokot S 8.6-50 MG TAB PO SCH ×2 (07:54→21:36)
[2023-05-03] MEDS: Bisacodyl 10 MG SUPP PR SCH (07:55)
[2023-05-03] MEDS: Folic Acid 1 MG TAB PO SCH (08:01)
[2023-05-03 11:25] LABS: Anion Gap 16 mmol/L (10-20); BUN (Urea Nitrogen) 53 mg/dL (8.4-25.7); Calc. Creatinine Clearance 40 mL/min (70-130); Calcium 9.4 mg/dL (7.8-10.44); Carbon Dioxide 22 mmol/L (23-31); Chloride 107 mmol/L (98-107); Estimated GFR 44; Glucose 106 mg/dL (83-110); Potassium 3.8 mmol/L (3.5-5.1); Sodium 141 mmol/L (136-145)
[2023-05-03] MEDS: EPOETIN ALFA-EPBX (ESRD) 10,000 UNITS/ML VIAL SC SCH (15:30)
[2023-05-03] MEDS: Melatonin 3 MG TAB PO PRN (21:36)
[2023-05-03] MEDS: Simvastatin 10 MG TAB PO SCH (21:36)
[2023-05-03] MEDS: Famotidine 20 MG TAB PO SCH (21:36)
[2023-05-03] MEDS: Donepezil HCl 5 MG TAB PO SCH (21:36)
[2023-05-03] MEDS: DAPTOmycin 600 MG in Sodium Chloride 0.9% 50 ML IVPB SCH (21:47)
[2023-05-04] MEDS: Meropenem 1 GM in Sodium Chloride 0.9% 100 ML IVPB SCH ×2 (04:59→20:04)
[2023-05-04] MEDS: Mometasone 200 MCG/Formoterol 5 MCG 120 PUFF INHALER INH SCH ×2 (07:19→18:50)
[2023-05-04 07:44] LABS: ALT (SGPT) 28 U/L (8-55); AST (SGOT) 39 U/L (5-34); Albumin 3.5 g/dL (3.4-4.8); Alkaline Phosphatase 189 U/L (40-110); Anion Gap 16 mmol/L (10-20); BUN (Urea Nitrogen) 59 mg/dL (8.4-25.7); Bilirubin, Total 0.6 mg/dL (0.2-1.2); Calc. Creatinine Clearance 37 mL/min (70-130); Carbon Dioxide 24 mmol/L (23-31); Chloride 110 mmol/L (98-107); Estimated GFR 41; Globulin 3.9 g/dL (2.4-3.5); Glucose 107 mg/dL (83-110); Magnesium 1.8 mg/dL (1.6-2.6); Potassium 4.6 mmol/L (3.5-5.1); Protein, Total 7.4 g/dL (5.8-8.1); Sodium 145 mmol/L (136-145)
[2023-05-04] MEDS: Aspirin 81 mg Enteric Coated Tablet PO SCH (08:19)
[2023-05-04] MEDS: Apixaban 5 MG TAB PO SCH (08:19)
[2023-05-04] MEDS: Senokot S 8.6-50 MG TAB PO SCH ×2 (08:19→20:32)
[2023-05-04] MEDS: DULoxetine 30 MG CAP PO SCH (08:19)
[2023-05-04] MEDS: Folic Acid 1 MG TAB PO SCH (08:19)
[2023-05-04] MEDS: QUEtiapine 100 MG TAB PO SCH ×2 (08:19→20:32)
[2023-05-04] MEDS: Bisacodyl 10 MG SUPP PR SCH (08:20)
[2023-05-04 12:42] LABS: SARS-CoV-2 NAA Rapid Test Not Detected (NotDetected)
[2023-05-04] MEDS: DAPTOmycin 600 MG in Sodium Chloride 0.9% 50 ML IVPB SCH (20:31)
[2023-05-04] MEDS: Simvastatin 10 MG TAB PO SCH (20:32)
[2023-05-04] MEDS: Donepezil HCl 5 MG TAB PO SCH (20:32)
[2023-05-04] MEDS: Famotidine 20 MG TAB PO SCH (20:32)
[2023-05-04] MEDS: Acetaminophen 325 MG TAB PO PRN (22:32)
[2023-05-05] MEDS: Meropenem 1 GM in Sodium Chloride 0.9% 100 ML IVPB SCH ×2 (05:15→17:25)
[2023-05-05] MEDS: Mometasone 200 MCG/Formoterol 5 MCG 120 PUFF INHALER INH SCH ×2 (07:19→18:56)
[2023-05-05 08:58] LABS: Hemoglobin 7.5 g/dL (14.0-18.0); Red Blood Cell (RBC) Count 2.87 mill/uL (4.70-6.10); White Blood Cell (WBC) Count 14.8 10x3/uL (4.8-10.8)
[2023-05-05 08:59] LABS: #Basophils 0.1 thou/uL (0.0-0.2); #Eosinphils 0.9 thou/uL (0.0-0.7); #Monocytes 1.4 thou/uL (0.11-0.59); #Neutrophils 10.1 thou/uL (1.40-6.50); %Basophils 0.5 % (0.0-1.0); %Eosinophils 6.3 % (0.0-10.0); %Lymphocytes 13.8 % (21.0-51.0); %Monocytes 9.6 % (0.0-10.0); %Neutrophils 68.3 % (42.0-75.0); Hematocrit 25.2 % (42.0-52.0); Mean Corpuscular HGB CONC 29.8 g/dL (32.0-36.0); Mean Corpuscular Hemoglobin 26.1 pg (27.0-31.0); Mean Corpuscular Volume 87.8 fl (78.0-98.0); Mean Platelet Volume 9.9 fL (7.4-10.4); Platelet Count 430 10x3/uL (130-400); RBC Distribution Width 18.6 % (11.5-14.5)
[2023-05-05 09:02] LABS: Lactic Acid 1.1 mmol/L (0.5-2.2)
[2023-05-05] MEDS: Folic Acid 1 MG TAB PO SCH (09:04)
[2023-05-05] MEDS: QUEtiapine 100 MG TAB PO SCH ×2 (09:04→20:20)
[2023-05-05] MEDS: Senokot S 8.6-50 MG TAB PO SCH ×2 (09:04→20:19)
[2023-05-05] MEDS: Aspirin 81 mg Enteric Coated Tablet PO SCH (09:04)
[2023-05-05] MEDS: Apixaban 5 MG TAB PO SCH ×2 (09:04→20:18)
[2023-05-05] MEDS: DULoxetine 30 MG CAP PO SCH (09:04)
[2023-05-05] MEDS: Bisacodyl 10 MG SUPP PR SCH (09:06)
[2023-05-05 09:16] LABS: ALT (SGPT) 29 U/L (8-55); AST (SGOT) 32 U/L (5-34); Albumin 3.3 g/dL (3.4-4.8); Alkaline Phosphatase 116 U/L (40-110); Anion Gap 17 mmol/L (10-20); BUN (Urea Nitrogen) 55 mg/dL (8.4-25.7); Bilirubin, Total 0.8 mg/dL (0.2-1.2); Calc. Creatinine Clearance 42 mL/min (70-130); Calcium 10.2 mg/dL (7.8-10.44); Carbon Dioxide 23 mmol/L (23-31); Chloride 106 mmol/L (98-107); Estimated GFR 47; Globulin 4.5 g/dL (2.4-3.5); Glucose 97 mg/dL (83-110); Potassium 4.4 mmol/L (3.5-5.1); Protein, Total 7.8 g/dL (5.8-8.1); Sodium 142 mmol/L (136-145)
[2023-05-05] MEDS ORDERED: Sodium Chloride 0.65% Nasal 44 ML BOT EA NARE PRN (11:38)
[2023-05-05] MEDS: Acetaminophen 325 MG TAB PO PRN (17:30)
[2023-05-05] MEDS: DAPTOmycin 600 MG in Sodium Chloride 0.9% 50 ML IVPB SCH (20:18)
[2023-05-05] MEDS: Simvastatin 10 MG TAB PO SCH (20:19)
[2023-05-05] MEDS: Famotidine 20 MG TAB PO SCH (20:20)
[2023-05-05] MEDS: Donepezil HCl 5 MG TAB PO SCH (20:20)
[2023-05-06] MEDS: Meropenem 1 GM in Sodium Chloride 0.9% 100 ML IVPB SCH ×2 (05:16→20:04)
[2023-05-06] MEDS: Mometasone 200 MCG/Formoterol 5 MCG 120 PUFF INHALER INH SCH ×2 (07:26→19:15)
[2023-05-06] MEDS: Acetaminophen 325 MG TAB PO PRN ×2 (08:06→20:12)
[2023-05-06] MEDS: Apixaban 5 MG TAB PO SCH (08:06)
[2023-05-06] MEDS: Aspirin 81 mg Enteric Coated Tablet PO SCH (08:07)
[2023-05-06] MEDS: QUEtiapine 100 MG TAB PO SCH ×2 (08:07→20:09)
[2023-05-06] MEDS: Senokot S 8.6-50 MG TAB PO SCH ×2 (08:07→20:08)
[2023-05-06] MEDS: DULoxetine 30 MG CAP PO SCH (08:07)
[2023-05-06] MEDS: Bisacodyl 10 MG SUPP PR SCH (08:07)
[2023-05-06] MEDS: Folic Acid 1 MG TAB PO SCH (08:07)
[2023-05-06 08:32] LABS: #Basophils 0.1 thou/uL (0.0-0.2); #Eosinphils 0.7 thou/uL (0.0-0.7); #Monocytes 1.4 thou/uL (0.11-0.59); #Neutrophils 10.9 thou/uL (1.40-6.50); %Basophils 0.3 % (0.0-1.0); %Eosinophils 4.7 % (0.0-10.0); %Lymphocytes 14.2 % (21.0-51.0); %Monocytes 8.8 % (0.0-10.0); %Neutrophils 70.4 % (42.0-75.0); Hemoglobin 6.8 g/dL (14.0-18.0); Mean Corpuscular HGB CONC 30.9 g/dL (32.0-36.0); Mean Corpuscular Hemoglobin 27.2 pg (27.0-31.0); Platelet Count 400 10x3/uL (130-400); RBC Distribution Width 18.6 % (11.5-14.5); White Blood Cell (WBC) Count 15.4 10x3/uL (4.8-10.8)
[2023-05-06 08:54] LABS: ALT (SGPT) 29 U/L (8-55); AST (SGOT) 35 U/L (5-34); Albumin 3.1 g/dL (3.4-4.8); Alkaline Phosphatase 126 U/L (40-110); Anion Gap 13 mmol/L (10-20); BUN (Urea Nitrogen) 66 mg/dL (8.4-25.7); Bilirubin, Direct 0.4 mg/dL (0.1-0.3); Bilirubin, Total 0.8 mg/dL (0.2-1.2); Calc. Creatinine Clearance 40 mL/min (70-130); Calcium 10.1 mg/dL (7.8-10.44); Carbon Dioxide 25 mmol/L (23-31); Chloride 108 mmol/L (98-107); Estimated GFR 45; Glucose 98 mg/dL (83-110); Potassium 4.4 mmol/L (3.5-5.1); Protein, Total 7.1 g/dL (5.8-8.1); Sodium 142 mmol/L (136-145)
[2023-05-06 11:36] LABS: Hematocrit 21.9 % (42.0-52.0); Hemoglobin 6.8 g/dL (14.0-18.0); Platelet Count 370 10x3/uL (130-400)
[2023-05-06 11:52] LABS: INR-International Normal Ratio 2.1; Prothrombin Time 24.3 sec (12.0-14.7)
[2023-05-06 11:53] LABS: PTT 52.2 sec (22.9-36.1)
[2023-05-06 11:58] LABS: Iron 11 ug/dL (65-175); Iron Binding Capacity, Total 131 mcg/dL (261-462)
[2023-05-06] MEDS ORDERED: Pantoprazole 40 MG VIAL IVP SCH (16:30)
[2023-05-06] MEDS: Simvastatin 10 MG TAB PO SCH (20:09)
[2023-05-06] MEDS: Donepezil HCl 5 MG TAB PO SCH (20:09)
[2023-05-06] MEDS: Melatonin 3 MG TAB PO PRN (21:18)
[2023-05-06] MEDS: DAPTOmycin 600 MG in Sodium Chloride 0.9% 50 ML IVPB SCH (22:00)
[2023-05-07] MEDS: Meropenem 1 GM in Sodium Chloride 0.9% 100 ML IVPB SCH ×2 (05:31→17:36)
[2023-05-07] MEDS: Mometasone 200 MCG/Formoterol 5 MCG 120 PUFF INHALER INH SCH ×2 (07:14→19:06)
[2023-05-07] MEDS: Acetaminophen 325 MG TAB PO PRN ×2 (08:03→19:55)
[2023-05-07] MEDS: Senokot S 8.6-50 MG TAB PO SCH ×2 (08:03→19:54)
[2023-05-07] MEDS: Folic Acid 1 MG TAB PO SCH (08:03)
[2023-05-07] MEDS: DULoxetine 30 MG CAP PO SCH (08:04)
[2023-05-07] MEDS: QUEtiapine 100 MG TAB PO SCH ×2 (08:04→19:55)
[2023-05-07] MEDS: Pantoprazole 40 MG VIAL IVP SCH ×2 (08:04→19:53)
[2023-05-07] MEDS: Bisacodyl 10 MG SUPP PR SCH (08:04)
[2023-05-07] MEDS ORDERED: Polyethylene Glycol 3350 17 GM Packet PO SCH (09:15)
[2023-05-07 10:12] LABS: #Eosinphils 0.6 thou/uL (0.0-0.7); #Neutrophils 13.1 thou/uL (1.40-6.50); %Basophils 0.2 % (0.0-1.0); %Eosinophils 3.8 % (0.0-10.0); %Lymphocytes 9.7 % (21.0-51.0); %Monocytes 6.2 % (0.0-10.0); %Neutrophils 78.6 % (42.0-75.0); Hematocrit 26.4 % (42.0-52.0); Hemoglobin 8.3 g/dL (14.0-18.0); Mean Corpuscular HGB CONC 31.4 g/dL (32.0-36.0); Mean Corpuscular Hemoglobin 27.9 pg (27.0-31.0); Mean Corpuscular Volume 88.6 fl (78.0-98.0); Platelet Count 411 10x3/uL (130-400); RBC Distribution Width 17.8 % (11.5-14.5); Red Blood Cell (RBC) Count 2.98 mill/uL (4.70-6.10); White Blood Cell (WBC) Count 16.7 10x3/uL (4.8-10.8)
[2023-05-07 10:42] LABS: Anion Gap 11 mmol/L (10-20); BUN (Urea Nitrogen) 64 mg/dL (8.4-25.7); Calc. Creatinine Clearance 39 mL/min (70-130); Calcium 10.2 mg/dL (7.8-10.44); Carbon Dioxide 25 mmol/L (23-31); Chloride 110 mmol/L (98-107); Estimated GFR 45; Glucose 142 mg/dL (83-110); Potassium 4.1 mmol/L (3.5-5.1)
[2023-05-07 10:55] LABS: HIV (1/2) Antibody/Antigen Non-Reactive (NonReactive); HIV 1/2 INDEX 0.79 S/CO (<1.00)
[2023-05-07 12:24] LABS: Sodium 145 mmol/L (136-145)
[2023-05-07 12:47] LABS: Vitamin B12 996 pg/mL (211-911)
[2023-05-07 13:26] LABS: Syphilis Antibody Nonreactive (Nonreactive); Syphilis Antibody Index 0.19 S/CO (<1.00 Non-Reactive)
[2023-05-07] MEDS: DAPTOmycin 600 MG in Sodium Chloride 0.9% 50 ML IVPB SCH (19:52)
[2023-05-07] MEDS: Melatonin 3 MG TAB PO PRN (19:55)
[2023-05-07] MEDS: Donepezil HCl 5 MG TAB PO SCH (19:55)
[2023-05-07] MEDS: Simvastatin 10 MG TAB PO SCH (19:55)
[2023-05-08] MEDS: Meropenem 1 GM in Sodium Chloride 0.9% 100 ML IVPB SCH ×2 (05:12→18:03)
[2023-05-08 06:23] LABS: #Basophils 0.1 thou/uL (0.0-0.2); #Eosinphils 0.6 thou/uL (0.0-0.7); #Monocytes 1.4 thou/uL (0.11-0.59); #Neutrophils 13.5 thou/uL (1.40-6.50); %Basophils 0.3 % (0.0-1.0); %Eosinophils 3.5 % (0.0-10.0); %Lymphocytes 11.2 % (21.0-51.0); %Monocytes 7.8 % (0.0-10.0); %Neutrophils 75.8 % (42.0-75.0); Hematocrit 27.5 % (42.0-52.0); Hemoglobin 8.3 g/dL (14.0-18.0); Mean Corpuscular HGB CONC 30.2 g/dL (32.0-36.0); Mean Corpuscular Hemoglobin 27.1 pg (27.0-31.0); Mean Corpuscular Volume 89.9 fl (78.0-98.0); Platelet Count 426 10x3/uL (130-400); RBC Distribution Width 17.7 % (11.5-14.5); Red Blood Cell (RBC) Count 3.06 mill/uL (4.70-6.10); White Blood Cell (WBC) Count 17.8 10x3/uL (4.8-10.8)
[2023-05-08 06:44] LABS: Anion Gap 15 mmol/L (10-20); BUN (Urea Nitrogen) 58 mg/dL (8.4-25.7); Calc. Creatinine Clearance 39 mL/min (70-130); Calcium 10.4 mg/dL (7.8-10.44); Carbon Dioxide 25 mmol/L (23-31); Chloride 109 mmol/L (98-107); Estimated GFR 45; Glucose 87 mg/dL (83-110); Magnesium 2.9 mg/dL (1.6-2.6); Potassium 4.4 mmol/L (3.5-5.1); Sodium 145 mmol/L (136-145)
[2023-05-08] MEDS: Senokot S 8.6-50 MG TAB PO SCH ×2 (08:28→19:39)
[2023-05-08] MEDS: QUEtiapine 100 MG TAB PO SCH ×2 (08:28→19:38)
[2023-05-08] MEDS: Bisacodyl 10 MG SUPP PR SCH (08:28)
[2023-05-08] MEDS: Pantoprazole 40 MG VIAL IVP SCH ×2 (08:28→19:40)
[2023-05-08] MEDS: Folic Acid 1 MG TAB PO SCH (08:28)
[2023-05-08] MEDS: DULoxetine 30 MG CAP PO SCH (08:28)
[2023-05-08] MEDS: Mometasone 200 MCG/Formoterol 5 MCG 120 PUFF INHALER INH SCH ×2 (08:31→18:43)
[2023-05-08] MEDS ORDERED: Milk Of Magnesia 30 ML UDCUP PO PRN (10:01)
[2023-05-08] MEDS ORDERED: Milk Of Magnesia 30 ML UDCUP PO SCH (10:15)
[2023-05-08] MEDS ORDERED: Polyethylene Glycol 3350 17 GM Packet PO SCH (10:15)
[2023-05-08] MEDS ORDERED: Iron, Sodium Ferric Gluconate 250 MG in Sodium Chloride 0.9% 250 ML 250 ML IVPB SCH (10:30)
[2023-05-08] MEDS: Acetaminophen 325 MG TAB PO PRN (19:38)
[2023-05-08] MEDS: Donepezil HCl 5 MG TAB PO SCH (19:39)
[2023-05-08] MEDS: Melatonin 3 MG TAB PO PRN (19:39)
[2023-05-08] MEDS: Simvastatin 10 MG TAB PO SCH (19:39)
[2023-05-08] MEDS: DAPTOmycin 600 MG in Sodium Chloride 0.9% 50 ML IVPB SCH (21:30)
[2023-05-09 04:41] LABS: #Basophils 0.1 thou/uL (0.0-0.2); #Eosinphils 0.5 thou/uL (0.0-0.7); #Monocytes 1.1 thou/uL (0.11-0.59); #Neutrophils 14.3 thou/uL (1.40-6.50); %Basophils 0.3 % (0.0-1.0); %Lymphocytes 11.1 % (21.0-51.0); %Neutrophils 78.2 % (42.0-75.0); Hematocrit 27.8 % (42.0-52.0); Hemoglobin 8.3 g/dL (14.0-18.0); Mean Corpuscular HGB CONC 29.9 g/dL (32.0-36.0); Mean Corpuscular Hemoglobin 26.9 pg (27.0-31.0); Mean Corpuscular Volume 90.3 fl (78.0-98.0); Mean Platelet Volume 10.1 fL (7.4-10.4); Platelet Count 424 10x3/uL (130-400); Red Blood Cell (RBC) Count 3.08 mill/uL (4.70-6.10); White Blood Cell (WBC) Count 18.3 10x3/uL (4.8-10.8)
[2023-05-09 05:04] LABS: Anion Gap 15 mmol/L (10-20); BUN (Urea Nitrogen) 63 mg/dL (8.4-25.7); Calc. Creatinine Clearance 40 mL/min (70-130); Carbon Dioxide 26 mmol/L (23-31); Chloride 109 mmol/L (98-107); Estimated GFR 47; Glucose 112 mg/dL (83-110); Magnesium 2.5 mg/dL (1.6-2.6); Potassium 4.4 mmol/L (3.5-5.1); Sodium 146 mmol/L (136-145)
[2023-05-09] MEDS: Meropenem 1 GM in Sodium Chloride 0.9% 100 ML IVPB SCH ×2 (05:05→18:12)
[2023-05-09] MEDS: Mometasone 200 MCG/Formoterol 5 MCG 120 PUFF INHALER INH SCH ×2 (07:13→18:12)
[2023-05-09] MEDS: QUEtiapine 100 MG TAB PO SCH ×2 (08:20→19:46)
[2023-05-09] MEDS: DULoxetine 30 MG CAP PO SCH (08:20)
[2023-05-09] MEDS: Bisacodyl 10 MG SUPP PR SCH (08:20)
[2023-05-09] MEDS: Pantoprazole 40 MG VIAL IVP SCH ×2 (08:20→19:46)
[2023-05-09] MEDS: Folic Acid 1 MG TAB PO SCH (08:20)
[2023-05-09] MEDS: Polyethylene Glycol 3350 17 GM Packet PO SCH (08:21)
[2023-05-09] MEDS: Senokot S 8.6-50 MG TAB PO SCH ×2 (08:21→19:48)
[2023-05-09] MEDS: Ipratropium/Albuterol 3 ML NEB EZPAP PRN (15:33)
[2023-05-09] MEDS: Simvastatin 10 MG TAB PO SCH (19:47)
[2023-05-09] MEDS: Donepezil HCl 5 MG TAB PO SCH (19:47)
[2023-05-09] MEDS: Melatonin 3 MG TAB PO PRN (19:48)
[2023-05-09] MEDS: Acetaminophen 325 MG TAB PO PRN (19:49)
[2023-05-09] MEDS: DAPTOmycin 600 MG in Sodium Chloride 0.9% 50 ML IVPB SCH (20:51)
[2023-05-10] MEDS: Meropenem 1 GM in Sodium Chloride 0.9% 100 ML IVPB SCH ×2 (04:39→18:14)
[2023-05-10] MEDS: Mometasone 200 MCG/Formoterol 5 MCG 120 PUFF INHALER INH SCH ×2 (06:33→18:57)
[2023-05-10] MEDS: Ipratropium/Albuterol 3 ML NEB EZPAP PRN (06:37)
[2023-05-10 06:38] LABS: #Basophils 0.1 thou/uL (0.0-0.2); #Eosinphils 0.7 thou/uL (0.0-0.7); #Monocytes 1.1 thou/uL (0.11-0.59); #Neutrophils 11.5 thou/uL (1.40-6.50); %Basophils 0.4 % (0.0-1.0); %Eosinophils 4.3 % (0.0-10.0); %Lymphocytes 12.8 % (21.0-51.0); %Monocytes 7.2 % (0.0-10.0); %Neutrophils 74.1 % (42.0-75.0); Hematocrit 29.6 % (42.0-52.0); Hemoglobin 8.8 g/dL (14.0-18.0); Mean Corpuscular HGB CONC 29.7 g/dL (32.0-36.0); Mean Corpuscular Hemoglobin 27.4 pg (27.0-31.0); Mean Corpuscular Volume 92.2 fl (78.0-98.0); Mean Platelet Volume 9.7 fL (7.4-10.4); Platelet Count 455 10x3/uL (130-400); RBC Distribution Width 17.9 % (11.5-14.5); Red Blood Cell (RBC) Count 3.21 mill/uL (4.70-6.10); White Blood Cell (WBC) Count 15.5 10x3/uL (4.8-10.8)
[2023-05-10 07:40] LABS: Anion Gap 16 mmol/L (10-20); BUN (Urea Nitrogen) 59 mg/dL (8.4-25.7); Calc. Creatinine Clearance 38 mL/min (70-130); Calcium 10.9 mg/dL (7.8-10.44); Carbon Dioxide 25 mmol/L (23-31); Chloride 112 mmol/L (98-107); Estimated GFR 45; Glucose 100 mg/dL (83-110); Magnesium 2.5 mg/dL (1.6-2.6); Potassium 4.2 mmol/L (3.5-5.1); Sodium 149 mmol/L (136-145)
[2023-05-10] MEDS: Pantoprazole 40 MG VIAL IVP SCH ×2 (09:25→20:04)
[2023-05-10] MEDS: Bisacodyl 5 MG TAB PO PRN (09:25)
[2023-05-10] MEDS: Folic Acid 1 MG TAB PO SCH (09:26)
[2023-05-10] MEDS: DULoxetine 30 MG CAP PO SCH (09:26)
[2023-05-10] MEDS: EPOETIN ALFA-EPBX (ESRD) 10,000 UNITS/ML VIAL SC SCH (09:26)
[2023-05-10] MEDS: QUEtiapine 100 MG TAB PO SCH ×2 (09:26→20:04)
[2023-05-10] MEDS: Bisacodyl 10 MG SUPP PR SCH (09:26)
[2023-05-10] MEDS: Polyethylene Glycol 3350 17 GM Packet PO SCH (09:27)
[2023-05-10] MEDS: Senokot S 8.6-50 MG TAB PO SCH ×2 (09:27→20:04)
[2023-05-10] MEDS: Acetaminophen 325 MG TAB PO PRN (12:20)
[2023-05-10] MEDS: Melatonin 3 MG TAB PO PRN (20:03)
[2023-05-10] MEDS: Donepezil HCl 5 MG TAB PO SCH (20:04)
[2023-05-10] MEDS: Simvastatin 10 MG TAB PO SCH (20:04)
[2023-05-11 05:10] LABS: #Basophils 0.1 thou/uL (0.0-0.2); #Eosinphils 0.8 thou/uL (0.0-0.7); #Monocytes 1.1 thou/uL (0.11-0.59); #Neutrophils 10.6 thou/uL (1.40-6.50); %Basophils 0.4 % (0.0-1.0); %Eosinophils 5.3 % (0.0-10.0); %Lymphocytes 14.4 % (21.0-51.0); %Monocytes 7.1 % (0.0-10.0); %Neutrophils 71.5 % (42.0-75.0); Hematocrit 26.8 % (42.0-52.0); Hemoglobin 8.1 g/dL (14.0-18.0); Mean Corpuscular HGB CONC 30.2 g/dL (32.0-36.0); Mean Corpuscular Hemoglobin 27.2 pg (27.0-31.0); Mean Corpuscular Volume 89.9 fl (78.0-98.0); Mean Platelet Volume 9.9 fL (7.4-10.4); Platelet Count 499 10x3/uL (130-400); RBC Distribution Width 17.7 % (11.5-14.5); Red Blood Cell (RBC) Count 2.98 mill/uL (4.70-6.10); White Blood Cell (WBC) Count 14.8 10x3/uL (4.8-10.8)
[2023-05-11 05:44] LABS: Anion Gap 14 mmol/L (10-20); BUN (Urea Nitrogen) 64 mg/dL (8.4-25.7); Calc. Creatinine Clearance 36 mL/min (70-130); Calcium 11.4 mg/dL (7.8-10.44); Carbon Dioxide 29 mmol/L (23-31); Chloride 109 mmol/L (98-107); Estimated GFR 44; Glucose 91 mg/dL (83-110); Magnesium 2.3 mg/dL (1.6-2.6); Potassium 4.3 mmol/L (3.5-5.1); Sodium 148 mmol/L (136-145)
[2023-05-11] MEDS: Meropenem 1 GM in Sodium Chloride 0.9% 100 ML IVPB SCH ×2 (06:20→18:50)
[2023-05-11] MEDS: Mometasone 200 MCG/Formoterol 5 MCG 120 PUFF INHALER INH SCH ×2 (06:32→19:16)
[2023-05-11] MEDS: Ipratropium/Albuterol 3 ML NEB EZPAP PRN (06:37)
[2023-05-11] MEDS: Senokot S 8.6-50 MG TAB PO SCH ×2 (09:08→20:22)
[2023-05-11] MEDS: DULoxetine 30 MG CAP PO SCH (09:08)
[2023-05-11] MEDS: QUEtiapine 100 MG TAB PO SCH ×2 (09:08→20:21)
[2023-05-11] MEDS: Folic Acid 1 MG TAB PO SCH (09:08)
[2023-05-11] MEDS: Bisacodyl 5 MG TAB PO PRN (09:08)
[2023-05-11] MEDS: Bisacodyl 10 MG SUPP PR SCH (09:09)
[2023-05-11] MEDS: Polyethylene Glycol 3350 17 GM Packet PO SCH ×2 (09:09→15:48)
[2023-05-11] MEDS: Pantoprazole 40 MG VIAL IVP SCH ×2 (09:09→20:22)
[2023-05-11] MEDS: Sodium Chloride 0.9% 1,000 ML IV SCH ×2 (10:35→18:51)
[2023-05-11] MEDS: Melatonin 3 MG TAB PO PRN (20:21)
[2023-05-11] MEDS: Donepezil HCl 5 MG TAB PO SCH (20:21)
[2023-05-11] MEDS: Simvastatin 10 MG TAB PO SCH (20:21)
[2023-05-11] MEDS: Acetaminophen 325 MG TAB PO PRN (20:22)
[2023-05-12] MEDS: Sodium Chloride 0.9% 1,000 ML IV SCH ×2 (01:20→08:38)
[2023-05-12] MEDS: Meropenem 1 GM in Sodium Chloride 0.9% 100 ML IVPB SCH ×2 (06:04→17:16)
[2023-05-12 06:39] LABS: Anion Gap 17 mmol/L (10-20); BUN (Urea Nitrogen) 64 mg/dL (8.4-25.7); Calc. Creatinine Clearance 37 mL/min (70-130); Carbon Dioxide 25 mmol/L (23-31); Chloride 109 mmol/L (98-107); Estimated GFR 42; Glucose 82 mg/dL (83-110); Magnesium 2.3 mg/dL (1.6-2.6); Sodium 146 mmol/L (136-145)
[2023-05-12] MEDS: Mometasone 200 MCG/Formoterol 5 MCG 120 PUFF INHALER INH SCH ×2 (07:32→19:04)
[2023-05-12] MEDS: Ipratropium/Albuterol 3 ML NEB EZPAP PRN (07:35)
[2023-05-12] MEDS: Folic Acid 1 MG TAB PO SCH (08:37)
[2023-05-12] MEDS: DULoxetine 30 MG CAP PO SCH (08:37)
[2023-05-12] MEDS: QUEtiapine 100 MG TAB PO SCH ×2 (08:37→21:06)
[2023-05-12] MEDS: Pantoprazole 40 MG VIAL IVP SCH ×2 (08:38→20:37)
[2023-05-12] MEDS: Senokot S 8.6-50 MG TAB PO SCH ×2 (08:38→21:06)
[2023-05-12] MEDS: Bisacodyl 10 MG SUPP PR SCH (08:38)
[2023-05-12] MEDS: Polyethylene Glycol 3350 17 GM Packet PO SCH (08:38)
[2023-05-12] MEDS ORDERED: Magnesium Citrate 300 ML BOT PO SCH (09:00)
[2023-05-12 10:08] LABS: #Basophils 0.1 thou/uL (0.0-0.2); #Eosinphils 0.7 thou/uL (0.0-0.7); #Monocytes 0.7 thou/uL (0.11-0.59); #Neutrophils 8.3 thou/uL (1.40-6.50); %Basophils 0.7 % (0.0-1.0); %Eosinophils 6.4 % (0.0-10.0); %Lymphocytes 13.4 % (21.0-51.0); Mean Corpuscular HGB CONC 29.4 g/dL (32.0-36.0); Mean Corpuscular Hemoglobin 26.8 pg (27.0-31.0); Mean Corpuscular Volume 91.2 fl (78.0-98.0); Mean Platelet Volume 9.9 fL (7.4-10.4); Platelet Count 542 10x3/uL (130-400); RBC Distribution Width 17.3 % (11.5-14.5); Red Blood Cell (RBC) Count 3.73 mill/uL (4.70-6.10); White Blood Cell (WBC) Count 11.5 10x3/uL (4.8-10.8)
[2023-05-12] MEDS: Sodium Chloride 0.45% 1,000 ML IV SCH ×2 (13:08→17:20)
[2023-05-12] MEDS ORDERED: Bisacodyl 10 MG SUPP PR SCH (20:15)
[2023-05-12] MEDS: Promethazine 25 MG TAB PO PRN (20:37)
[2023-05-12] MEDS: Acetaminophen 325 MG TAB PO PRN (21:05)
[2023-05-12] MEDS: Melatonin 3 MG TAB PO PRN (21:06)
[2023-05-12] MEDS: Simvastatin 10 MG TAB PO SCH (21:06)
[2023-05-12] MEDS: Donepezil HCl 5 MG TAB PO SCH (21:06)
[2023-05-13] MEDS: Sodium Chloride 0.45% 1,000 ML IV SCH ×2 (00:28→09:02)
[2023-05-13] MEDS: Meropenem 1 GM in Sodium Chloride 0.9% 100 ML IVPB SCH ×2 (05:40→17:32)
[2023-05-13] MEDS: Mometasone 200 MCG/Formoterol 5 MCG 120 PUFF INHALER INH SCH ×2 (07:23→19:37)
[2023-05-13] MEDS: Ipratropium/Albuterol 3 ML NEB EZPAP PRN (07:30)
[2023-05-13] MEDS: DULoxetine 30 MG CAP PO SCH (09:01)
[2023-05-13] MEDS: Pantoprazole 40 MG VIAL IVP SCH ×2 (09:01→22:53)
[2023-05-13] MEDS: QUEtiapine 100 MG TAB PO SCH ×2 (09:01→22:48)
[2023-05-13] MEDS: Promethazine 25 MG TAB PO PRN ×3 (09:01→22:49)
[2023-05-13] MEDS: Senokot S 8.6-50 MG TAB PO SCH ×2 (09:01→22:48)
[2023-05-13] MEDS: Folic Acid 1 MG TAB PO SCH (09:02)
[2023-05-13] MEDS: Bisacodyl 10 MG SUPP PR SCH (09:02)
[2023-05-13] MEDS: Polyethylene Glycol 3350 17 GM Packet PO SCH (09:02)
[2023-05-13 09:42] LABS: #Basophils 0.1 thou/uL (0.0-0.2); #Eosinphils 0.7 thou/uL (0.0-0.7); #Monocytes 1.1 thou/uL (0.11-0.59); #Neutrophils 6.7 thou/uL (1.40-6.50); %Basophils 0.7 % (0.0-1.0); %Eosinophils 6.3 % (0.0-10.0); %Lymphocytes 19.8 % (21.0-51.0); %Monocytes 9.9 % (0.0-10.0); Hematocrit 31.2 % (42.0-52.0); Hemoglobin 9.3 g/dL (14.0-18.0); Mean Corpuscular HGB CONC 29.8 g/dL (32.0-36.0); Mean Corpuscular Volume 90.4 fl (78.0-98.0); Mean Platelet Volume 9.7 fL (7.4-10.4); Platelet Count 518 10x3/uL (130-400); RBC Distribution Width 17.2 % (11.5-14.5); Red Blood Cell (RBC) Count 3.45 mill/uL (4.70-6.10); White Blood Cell (WBC) Count 10.7 10x3/uL (4.8-10.8)
[2023-05-13 10:04] LABS: Albumin 2.7 g/dL (3.4-4.8); Anion Gap 16 mmol/L (10-20); BUN (Urea Nitrogen) 63 mg/dL (8.4-25.7); BUN/Creatinine Ratio 38.65; Calc. Creatinine Clearance 38 mL/min (70-130); Calcium 11.4 mg/dL (7.8-10.44); Carbon Dioxide 23 mmol/L (23-31); Chloride 109 mmol/L (98-107); Estimated GFR 44; Glucose 94 mg/dL (83-110); Phosphorus 5.1 mg/dL (2.3-4.7); Potassium 4.2 mmol/L (3.5-5.1); Sodium 144 mmol/L (136-145)
[2023-05-13] MEDS: Acetaminophen 325 MG TAB PO PRN ×2 (10:36→22:49)
[2023-05-13] MEDS ORDERED: Simethicone Chewable 80 MG TAB PO PRN (11:06)
[2023-05-13] MEDS ORDERED: Zoledronic Acid 4 MG in Sodium Chloride 0.9% 100 ML IVPB SCH (12:30)
[2023-05-13] MEDS ORDERED: Calcitonin,Salmon,Synthetic 400 UNITS/2 ML SC SCH (12:45)
[2023-05-13] MEDS: Sodium Chloride 0.9% 1,000 ML IV SCH ×2 (13:34→17:31)
[2023-05-13] MEDS: Simvastatin 10 MG TAB PO SCH (22:48)
[2023-05-13] MEDS: Donepezil HCl 5 MG TAB PO SCH (22:48)
[2023-05-13] MEDS: Melatonin 3 MG TAB PO PRN (22:49)
[2023-05-14] MEDS: Sodium Chloride 0.9% 1,000 ML IV SCH ×3 (02:03→08:55)
[2023-05-14 06:25] LABS: #Basophils 0.1 thou/uL (0.0-0.2); #Eosinphils 0.6 thou/uL (0.0-0.7); #Monocytes 0.6 thou/uL (0.11-0.59); #Neutrophils 6.9 thou/uL (1.40-6.50); %Basophils 0.5 % (0.0-1.0); %Lymphocytes 14.1 % (21.0-51.0); %Monocytes 6.3 % (0.0-10.0); %Neutrophils 71.5 % (42.0-75.0); Hematocrit 25.7 % (42.0-52.0); Hemoglobin 7.9 g/dL (14.0-18.0); Mean Corpuscular HGB CONC 30.7 g/dL (32.0-36.0); Mean Corpuscular Hemoglobin 27.1 pg (27.0-31.0); Mean Corpuscular Volume 88.3 fl (78.0-98.0); Mean Platelet Volume 9.9 fL (7.4-10.4); Platelet Count 522 10x3/uL (130-400); RBC Distribution Width 17.1 % (11.5-14.5); Red Blood Cell (RBC) Count 2.91 mill/uL (4.70-6.10); White Blood Cell (WBC) Count 9.7 10x3/uL (4.8-10.8)
[2023-05-14 06:49] LABS: Anion Gap 10 mmol/L (10-20); BUN (Urea Nitrogen) 57 mg/dL (8.4-25.7); Calc. Creatinine Clearance 38 mL/min (70-130); Calcium 10.2 mg/dL (7.8-10.44); Carbon Dioxide 26 mmol/L (23-31); Chloride 108 mmol/L (98-107); Estimated GFR 44; Glucose 75 mg/dL (83-110); Potassium 4.4 mmol/L (3.5-5.1); Sodium 140 mmol/L (136-145)
[2023-05-14] MEDS: Mometasone 200 MCG/Formoterol 5 MCG 120 PUFF INHALER INH SCH ×2 (07:04→19:45)
[2023-05-14] MEDS: Ipratropium/Albuterol 3 ML NEB EZPAP PRN (07:08)
[2023-05-14] MEDS: Polyethylene Glycol 3350 17 GM Packet PO SCH (08:55)
[2023-05-14] MEDS: Bisacodyl 10 MG SUPP PR SCH (08:56)
[2023-05-14] MEDS: QUEtiapine 100 MG TAB PO SCH ×2 (08:56→21:56)
[2023-05-14] MEDS: Folic Acid 1 MG TAB PO SCH (08:56)
[2023-05-14] MEDS: DULoxetine 30 MG CAP PO SCH (08:56)
[2023-05-14] MEDS: Pantoprazole 40 MG VIAL IVP SCH ×2 (08:56→21:58)
[2023-05-14] MEDS: Senokot S 8.6-50 MG TAB PO SCH ×2 (08:56→21:58)
[2023-05-14] MEDS ORDERED: Dronabinol 2.5 MG CAP PO SCH (09:00)
[2023-05-14] MEDS: Sodium Bicarbonate 50 MEQ in Dextrose 5 %-0.45 % NaCl 1,000 ML IV SCH ×2 (10:41→21:57)
[2023-05-14] MEDS: Acetaminophen 325 MG TAB PO PRN ×2 (13:31→21:56)
[2023-05-14] MEDS: Promethazine 25 MG TAB PO PRN ×2 (13:31→21:56)
[2023-05-14] MEDS: Dronabinol 2.5 MG CAP PO SCH (17:24)
[2023-05-14] MEDS: Simvastatin 10 MG TAB PO SCH (21:56)
[2023-05-14] MEDS: Melatonin 3 MG TAB PO PRN (21:56)
[2023-05-14] MEDS: Donepezil HCl 5 MG TAB PO SCH (21:56)
[2023-05-15 04:49] LABS: #Basophils 0.1 thou/uL (0.0-0.2); #Eosinphils 0.4 thou/uL (0.0-0.7); #Monocytes 0.9 thou/uL (0.11-0.59); #Neutrophils 5.5 thou/uL (1.40-6.50); %Basophils 0.7 % (0.0-1.0); %Eosinophils 4.9 % (0.0-10.0); %Lymphocytes 16.8 % (21.0-51.0); %Monocytes 10.4 % (0.0-10.0); Hematocrit 27.3 % (42.0-52.0); Hemoglobin 8.3 g/dL (14.0-18.0); Mean Corpuscular HGB CONC 30.4 g/dL (32.0-36.0); Mean Corpuscular Hemoglobin 26.8 pg (27.0-31.0); Mean Corpuscular Volume 88.1 fl (78.0-98.0); Mean Platelet Volume 9.6 fL (7.4-10.4); Platelet Count 478 10x3/uL (130-400); RBC Distribution Width 17.2 % (11.5-14.5); White Blood Cell (WBC) Count 8.4 10x3/uL (4.8-10.8)
[2023-05-15 05:07] LABS: Anion Gap 15 mmol/L (10-20); BUN (Urea Nitrogen) 52 mg/dL (8.4-25.7); Calc. Creatinine Clearance 33 mL/min (70-130); Calcium 9.9 mg/dL (7.8-10.44); Carbon Dioxide 25 mmol/L (23-31); Chloride 106 mmol/L (98-107); Estimated GFR 38; Glucose 110 mg/dL (83-110); Potassium 3.7 mmol/L (3.5-5.1); Sodium 142 mmol/L (136-145)
[2023-05-15] MEDS ORDERED: Albumin 25% 25 GM (100 mL) BOT IVPB SCH (07:30)
[2023-05-15] MEDS: Sodium Bicarbonate 50 MEQ in Dextrose 5 %-0.45 % NaCl 1,000 ML IV SCH (07:58)
[2023-05-15] MEDS: Mometasone 200 MCG/Formoterol 5 MCG 120 PUFF INHALER INH SCH ×2 (08:05→19:30)
[2023-05-15] MEDS: Ipratropium/Albuterol 3 ML NEB EZPAP PRN (08:09)
[2023-05-15] MEDS: Dextrose 5%-Lactated Ringers 1,000 ML IV SCH ×2 (08:17→15:49)
[2023-05-15] MEDS: Senokot S 8.6-50 MG TAB PO SCH (08:18)
[2023-05-15] MEDS: QUEtiapine 100 MG TAB PO SCH (08:18)
[2023-05-15] MEDS: Dronabinol 2.5 MG CAP PO SCH ×2 (08:18→15:49)
[2023-05-15] MEDS: DULoxetine 30 MG CAP PO SCH (08:18)
[2023-05-15] MEDS: Polyethylene Glycol 3350 17 GM Packet PO SCH (08:18)
[2023-05-15] MEDS: Bisacodyl 10 MG SUPP PR SCH (08:18)
[2023-05-15] MEDS: Pantoprazole 40 MG VIAL IVP SCH (08:18)
[2023-05-15] MEDS: Folic Acid 1 MG TAB PO SCH (08:19)
[2023-05-15] MEDS: Albumin 25% 25 GM (100 mL) BOT IVPB SCH ×2 (11:18→17:01)
[2023-05-15] MEDS ORDERED: Iopamidol 370 76% 100 ML VIAL ONE (12:52)
[2023-05-15 19:39] VITALS: BP 105/61; TEMP 98.5
[2023-05-16 07:19] LABS: % Free PSA 11.4 % (.); Total PSA 0.7 ng/mL (0.0-4.0)
== END 2023-05-15 20:15 | DRG 871 ==
LOC: ERS 10:13 → ERHOLD 13:21 → 2NO 17:13 → T4-A 04-18 18:06
PROVIDERS: ADMIT Hospitalist; ATTEND Internal Medicine
PROC: 3E03329 Introduction of Other Anti-infective into Peripheral Vein, Percutaneous Approach (ICD-10-PCS; 2023-04-17)
PROC: 30233J1 Transfusion of Nonautologous Serum Albumin into Peripheral Vein, Percutaneous Approach (ICD-10-PCS; 2023-04-28)
PROC: 30233N1 Transfusion of Nonautologous Red Blood Cells into Peripheral Vein, Percutaneous Approach (ICD-10-PCS; principal; 2023-05-06)
DX: A41.59 Other Gram-negative sepsis (principal); G93.41 Metabolic encephalopathy; J96.01 Acute respiratory failure with hypoxia; J69.0 Pneumonitis due to inhalation of food and vomit; N17.9 Acute kidney failure, unspecified; M46.26 Osteomyelitis of vertebra, lumbar region; N13.30 Unspecified hydronephrosis; E87.0 Hyperosmolality and hypernatremia; E87.20 Acidosis, unspecified; Z66 Do not resuscitate; E83.52 Hypercalcemia; R82.81 Pyuria; E83.39 Other disorders of phosphorus metabolism; M47.816 Spondylosis without myelopathy or radiculopathy, lumbar region; N32.89 Other specified disorders of bladder; N18.30 Chronic kidney disease, stage 3 unspecified; I12.9 Hypertensive chronic kidney disease with stage 1 through stage 4 chronic kidney disease, or unspecified chronic kidney disease; R10.9 Unspecified abdominal pain; I25.10 Atherosclerotic heart disease of native coronary artery without angina pectoris; J44.9 Chronic obstructive pulmonary disease, unspecified; K21.9 Gastro-esophageal reflux disease without esophagitis; F41.9 Anxiety disorder, unspecified; F32.A Depression, unspecified; R33.9 Retention of urine, unspecified; I95.9 Hypotension, unspecified; D63.1 Anemia in chronic kidney disease; D53.9 Nutritional anemia, unspecified; G47.33 Obstructive sleep apnea (adult) (pediatric); I65.23 Occlusion and stenosis of bilateral carotid arteries; N32.0 Bladder-neck obstruction; D50.9 Iron deficiency anemia, unspecified; F03.C0 Unspecified dementia, severe, without behavioral disturbance, psychotic disturbance, mood disturbance, and anxiety; Z88.2 Allergy status to sulfonamides; Z88.8 Allergy status to other drugs, medicaments and biological substances; Z79.899 Other long term (current) drug therapy; Z90.49 Acquired absence of other specified parts of digestive tract; Z98.890 Other specified postprocedural states; Z98.1 Arthrodesis status; Z87.891 Personal history of nicotine dependence; Z11.52 Encounter for screening for COVID-19; Z86.718 Personal history of other venous thrombosis and embolism
CPT/HCPCS: 36415; 36416; 36430; 51702; 70450; 70496; 70498; 71045; 71260; 74019; 74177; 80048; 80053; 80069; 80076; 81001; 82040; 82274; 82306; 82550; 82607; 82728; 83540; 83550; 83605; 83735; 83970; 84100; 84153; 84154; 84443; 84484; 85025; 85046; 85610; 85730; 86140; 86780; 86850; 86900; 86901; 87040; 87070; 87077; 87081; 87086; 87186; 87205; 87389; 87449; 87804; 87899; 93005; 94640; 94664; 96361; 96374; 97139; C9113; J0630; J0878; J1644; J2185; J2405; J2916; J3475; J3489; J3490; J7042; J7050; J7070; J7120; J7620; P9016; P9047; Q0167; Q0169; Q5105; Q9967; U0002

== ENCOUNTER 2023-06-11 07:55 | Emergency (ER) | payer MEDICARE ==
[2023-06-11] MEDS ORDERED: Lidocaine 2% 6 ML (Jelly) SYR TOP SCH ×2 (08:30→09:00)
[2023-06-11] MEDS ORDERED: Lidocaine 2% 6 ML (Jelly) SYR ONE (08:53)
[2023-06-11 10:32] LABS: Bacteria/HPF 3+ HPF (None Seen); Bilirubin Negative (Negative); Blood, Urine 1+ (Negative); CAUTI Indications for Culture Dysuria,urgency,freq; Clarity Turbid (Clear); Glucose, Urine (Dipstick) Normal (Negative); Ketone, Urine Negative (Negative); Leukocyte 500 Leu/uL (Negative); Nitrite 2+ (Negative); Protein, Urine (Dipstick) 10 mg/dL (Neg-Trace); Specific Gravity, Urine 1.012 (1.002-1.036); Squamous Epithelial None Seen HPF (0-3); Urobilinogen Normal mg/dL (Less than 2); WBC/HPF Greater than 50 HPF (0-3); pH, Urine 7.5 (5.0-9.0)
[2023-06-11 10:35] LABS: Urine Culture Reflex Yes Yes
[2023-06-11 10:49] LABS: #Basophils 0.1 thou/uL (0.0-0.2); #Eosinphils 0.3 thou/uL (0.0-0.7); #Monocytes 0.4 thou/uL (0.11-0.59); #Neutrophils 2.6 thou/uL (1.40-6.50); %Eosinophils 5.3 % (0.0-10.0); %Lymphocytes 36.1 % (21.0-51.0); %Monocytes 7.8 % (0.0-10.0); %Neutrophils 49.6 % (42.0-75.0); Hematocrit 33.3 % (42.0-52.0); Mean Corpuscular Hemoglobin 27.6 pg (27.0-31.0); Mean Platelet Volume 9.1 fL (7.4-10.4); Platelet Count 140 10x3/uL (130-400); RBC Distribution Width 18.8 % (11.5-14.5); Red Blood Cell (RBC) Count 3.62 mill/uL (4.70-6.10); White Blood Cell (WBC) Count 5.3 10x3/uL (4.8-10.8)
[2023-06-11 11:28] LABS: ALT (SGPT) 12 U/L (8-55); AST (SGOT) 16 U/L (5-34); Albumin 3.9 g/dL (3.4-4.8); Alkaline Phosphatase 65 U/L (40-110); Anion Gap 11 mmol/L (10-20); BUN (Urea Nitrogen) 26 mg/dL (8.4-25.7); Bilirubin, Total 0.8 mg/dL (0.2-1.2); Calc. Creatinine Clearance 0 mL/min (70-130); Calcium 8.9 mg/dL (7.8-10.44); Carbon Dioxide 23 mmol/L (23-31); Chloride 108 mmol/L (98-107); Estimated GFR 53; Globulin 4.3 g/dL (2.4-3.5); Glucose 68 mg/dL (83-110); Potassium 4.6 mmol/L (3.5-5.1); Protein, Total 8.2 g/dL (5.8-8.1); Sodium 137 mmol/L (136-145)
[2023-06-11] MEDS ORDERED: cefTRIAXone (ROCEPHIN) 1 GM VIAL ONE (11:42)
[2023-06-11] MEDS ORDERED: Lidocaine 1% MPF 2 ML VIAL ONE (11:42)
== END 2023-06-11 13:58 ==
LOC: ERS 07:55
DX: T83.098A Other mechanical complication of other urinary catheter, initial encounter (principal); N39.0 Urinary tract infection, site not specified; F03.90 Unspecified dementia, unspecified severity, without behavioral disturbance, psychotic disturbance, mood disturbance, and anxiety; E78.5 Hyperlipidemia, unspecified; I10 Essential (primary) hypertension; J44.9 Chronic obstructive pulmonary disease, unspecified; D53.9 Nutritional anemia, unspecified; N40.0 Benign prostatic hyperplasia without lower urinary tract symptoms; G47.30 Sleep apnea, unspecified; D35.2 Benign neoplasm of pituitary gland; G62.9 Polyneuropathy, unspecified; Z55.6 Problems related to health literacy; Z87.891 Personal history of nicotine dependence
CPT/HCPCS: 36416; 51703; 80053; 81001; 85025; 87077; 87086; 87186; 96372; J0696

== ENCOUNTER 2023-06-12 15:31 | Emergency (ER) | payer MEDICARE | END 2023-06-12 18:34 | LOC: ERS 15:31 | DX: N39.0 Urinary tract infection, site not specified (principal); F03.90 Unspecified dementia, unspecified severity, without behavioral disturbance, psychotic disturbance, mood disturbance, and anxiety; J44.9 Chronic obstructive pulmonary disease, unspecified; I10 Essential (primary) hypertension; Z87.891 Personal history of nicotine dependence; Z79.82 Long term (current) use of aspirin; Z79.01 Long term (current) use of anticoagulants | CPT/HCPCS: 51702; 99283 ==

== ENCOUNTER 2023-07-12 07:54 | Emergency (ER) | payer MEDICARE, MEDICAID ==
[2023-07-12 09:10] LABS: Bilirubin Negative (Negative); Blood, Urine Negative (Negative); CAUTI Indications for Culture Dysuria,urgency,freq; Clarity Clear (Clear); Glucose, Urine (Dipstick) Normal (Negative); Ketone, Urine Negative (Negative); Leukocyte 250 Leu/uL (Negative); Nitrite Negative (Negative); Protein, Urine (Dipstick) Negative (Neg-Trace); RBC/HPF 0-3 HPF (0-3); Specific Gravity, Urine 1.013 (1.002-1.036); Squamous Epithelial 0-3 HPF (0-3); Urobilinogen Normal mg/dL (Less than 2); pH, Urine 5.5 (5.0-9.0)
[2023-07-12 09:19] LABS: Bacteria/HPF 1+ HPF (None Seen)
[2023-07-12 09:21] LABS: Urine Culture Reflex Yes Yes
== END 2023-07-12 10:55 | disposition home or self-care (01) ==
LOC: ERS 07:54
DX: T83.098A Other mechanical complication of other urinary catheter, initial encounter (principal); N39.0 Urinary tract infection, site not specified; I10 Essential (primary) hypertension; J44.9 Chronic obstructive pulmonary disease, unspecified; G62.9 Polyneuropathy, unspecified; F03.90 Unspecified dementia, unspecified severity, without behavioral disturbance, psychotic disturbance, mood disturbance, and anxiety; Z87.891 Personal history of nicotine dependence
CPT/HCPCS: 51702; 81001; 87077; 87086; 87186; 99283